=== PATIENT | male | born 1950 | race Caucasian/White ===

== ENCOUNTER 2017-06-24 10:27 | Day surgery (SDC) | payer MEDICARE, BC ==
[2017-06-19 10:07] VITALS: BMI 29.5
[~2017-06-24 10:27] MED LIST: LACTATED RINGERS 1,000 ML IV SCH
[2017-06-24 11:20] VITALS: TEMP 98.3
[2017-06-24] MEDS ORDERED: LIDOCAINE 1% 20 ML VIAL (10MG/ML) FOR IV START INTRADERMA ONE (11:25)
[2017-06-24] MEDS ORDERED: PROPOFOL 10 MG/ML 20 ML VIAL IV ONE (11:45)
[2017-06-24] MEDS ORDERED: KETAMINE 10 MG/ML 20 ML VIAL ONE (11:45)
--- NOTE | 2017-06-24 12:16 | P.PCN ---
Date of Procedure: 06/24/17 Procedure(s) Performed: Procedure: Colonoscopy and polypectomy. Preoperative diagnosis: Screening for neoplasia, patient has history of polyps. Postoperative diagnosis: 1. Two polyps snared but no large polyps or cancer. 2. Sigmoid diverticulosis with no evidence of acute diverticulitis or strictures. Preparation: HalfLytely prep. Sedation: Was provided by anesthesia. Brief clinical history: The patient is a 66-year-old male who is scheduled for this evaluation for screening for neoplasia because of history of polyps. His last exam was in February 2012. He has no abdominal complaints, bleeding or anemia. Procedure: With the patient on his left lateral decubitus position and after informed consent and adequate sedation, the perianal area was inspected and it did not show any fissures or fistulas. There were no masses felt on digital rectal examination. The Olympus CFQ 160L video colonoscope was then inserted in the rectum in the usual fashion and advanced to the cecum. There were a few diverticular orifices noted scattered in the sigmoid with no evidence of acute diverticulitis or strictures. The mucosa appeared healthy. Two polyps were seen, one around the hepatic flexure and one in the proximal sigmoid which were snared and retrieved by suction but there were no large polyps or cancer. I retroflexed the endoscope in the rectum before the endoscope was withdrawn. The patient tolerated the procedure well. Plan: The patient was reassured. Discussed dietary measures. I recommended repeat exam in 3-5 years. He will follow up with you as planned.
[2017-06-24 12:43] VITALS: BP 140/85; PULSE 70; RESP 18
== END 2017-06-24 12:51 | disposition home or self-care (01) ==
LOC: ORWHC2ENDO 10:27
DX: Z12.11 Encounter for screening for malignant neoplasm of colon (principal); D12.3 Benign neoplasm of transverse colon; D12.5 Benign neoplasm of sigmoid colon; K57.30 Diverticulosis of large intestine without perforation or abscess without bleeding; Z86.010 Personal history of colon polyps; I10 Essential (primary) hypertension; Z79.899 Other long term (current) drug therapy
CPT/HCPCS: 88305; 45385; J2704

== ENCOUNTER → 2017-08-22 | Outpatient (CLI) | payer MEDICARE, BC | END | disposition home or self-care (01) | LOC: LABWHC1 10:56 | PROVIDERS: ATTEND Family Medicine | DX: Z12.5 Encounter for screening for malignant neoplasm of prostate (principal) | CPT/HCPCS: 36415; G0103 ==

== ENCOUNTER → 2018-06-05 | Outpatient (CLI) | payer MEDICARE, BC ==
[2018-06-05 17:39] LABS: Albumin 4.6 g/dL (3.80-4.90); Albumin/Globulin Ratio 2.09 (1.60-3.17); Anion Gap 7.3 mmol/L (4.00-12.00); Calcium 9.6 mg/dL (8.7-10.3); Carbon Dioxide 27.7 mmol/L (21.6-31.8); Globulin 2.2 g/dL (1.6-3.3); LDL Cholesterol,Calculated 118.2 mg/dL (0.0-131.0); Potassium 5.1 mmol/L (3.5-5.5); Total Bilirubin 0.5 mg/dL (0.2-1.2); Total Protein 6.8 g/dL (6.2-8.2); VLDL Calculation 13.8 mg/dL (5.00-40.00)
== END | disposition home or self-care (01) ==
LOC: LABWHC1 09:51
PROVIDERS: ATTEND Family Medicine
DX: E78.5 Hyperlipidemia, unspecified (principal); I10 Essential (primary) hypertension; Z11.59 Encounter for screening for other viral diseases
CPT/HCPCS: 36415; 80053; 80061; 86803

== ENCOUNTER → 2018-08-25 | Outpatient (CLI) | payer MEDICARE, BC ==
[2018-08-25 11:08] LABS: Basophils # (A) 0.1 k/uL (0-0.2); Basophils % (A) 1 %; Eosinophils # (A) 0.1 k/uL (0-0.7); Eosinophils % (A) 2 %; HCT 48.2 % (39.0-53.0); HGB 15.9 gm/dL (13.0-17.5); Lymphocytes % (A) 40 %; MCH 31.3 pg (25.0-35.0); MCV 95.1 fL (80.0-100.0); Mean Platelet Volume 7.1; Monocytes # (A) 0.4 k/uL (0-1.0); Monocytes % (A) 9 %; Neutrophils # (A) 2.2 k/uL (1.3-7.7); Neutrophils % (A) 45 %; Platelet Count 253 k/uL (150-450); RBC 5.06 m/uL (4.30-5.90); RDW 14.1 % (11.5-15.5); WBC 4.9 k/uL (3.8-10.6)
[2018-08-25 16:29] LABS: Albumin 4.9 g/dL (3.80-4.90); Albumin/Globulin Ratio 2.23 (1.60-3.17); Anion Gap 9.7 mmol/L (4.00-12.00); Calcium 9.9 mg/dL (8.7-10.3); Carbon Dioxide 26.3 mmol/L (21.6-31.8); Globulin 2.2 g/dL (1.6-3.3); LDL Cholesterol,Calculated 113.2 mg/dL (0.0-131.0); Potassium 5.4 mmol/L (3.5-5.5); Total Bilirubin 0.7 mg/dL (0.3-1.2); Total Protein 7.1 g/dL (6.2-8.2); VLDL Calculation 15.8 mg/dL (5.00-40.00)
[2018-08-25 16:35] LABS: T4, Free (Free Thyroxine) 0.9 ng/dL (0.80-1.80)
== END | disposition home or self-care (01) ==
LOC: LABWHC1 09:25
PROVIDERS: ATTEND Family Medicine
DX: E78.5 Hyperlipidemia, unspecified (principal); Z12.5 Encounter for screening for malignant neoplasm of prostate
CPT/HCPCS: 84439; 80061; 80053; 84443; 85025; 36415; G0103

== ENCOUNTER → 2018-12-01 | Outpatient (CLI) | payer MEDICARE, BC ==
[2018-12-01 10:57] LABS: Basophils # (A) 0.1 k/uL (0-0.2); Basophils % (A) 1 %; Eosinophils # (A) 0.1 k/uL (0-0.7); Eosinophils % (A) 1 %; HCT 50.2 % (39.0-53.0); HGB 16.4 gm/dL (13.0-17.5); Lymphocytes % (A) 33 %; MCH 32.2 pg (25.0-35.0); MCHC 32.6 g/dL (31.0-37.0); MCV 98.7 fL (80.0-100.0); Monocytes # (A) 0.5 k/uL (0-1.0); Monocytes % (A) 8 %; Neutrophils # (A) 3.4 k/uL (1.3-7.7); Neutrophils % (A) 55 %; Platelet Count 228 k/uL (150-450); RBC 5.09 m/uL (4.30-5.90); RDW 14.2 % (11.5-15.5); WBC 6.2 k/uL (3.8-10.6)
[2018-12-01 17:37] LABS: African American GFR (CKD) 72.1 (60.0-200.0); Albumin 4.8 g/dL (3.80-4.90); Albumin/Globulin Ratio 2.18 (1.60-3.17); Anion Gap 9.3 mmol/L (4.00-12.00); BUN/Creat Ratio 17.5 Ratio (12.00-20.00); Calcium 9.8 mg/dL (8.7-10.3); Carbon Dioxide 25.7 mmol/L (21.6-31.8); Chol/HDL Ratio 2.99; Globulin 2.2 g/dL (1.6-3.3); Non-African American GFR(CKD) 62.2 (60.0-200.0); Potassium 5.3 mmol/L (3.5-5.5); Total Bilirubin 0.6 mg/dL (0.2-1.2)
== END | disposition home or self-care (01) ==
LOC: LABWHC1 10:16
PROVIDERS: ATTEND Family Medicine
DX: E78.5 Hyperlipidemia, unspecified (principal)
CPT/HCPCS: 36415; 80053; 80061; 85025

== ENCOUNTER → 2019-06-08 | Outpatient (CLI) | payer MEDICARE, BC ==
[2019-06-08 11:14] LABS: Basophils # (A) 0.1 k/uL (0-0.2); Basophils % (A) 1 %; Eosinophils # (A) 0.1 k/uL (0-0.7); Eosinophils % (A) 2 %; HGB 15.9 gm/dL (13.0-17.5); Lymphocytes # (A) 1.8 k/uL (1.0-4.8); Lymphocytes % (A) 32 %; MCH 31.2 pg (25.0-35.0); MCHC 32.5 g/dL (31.0-37.0); MCV 96.2 fL (80.0-100.0); Mean Platelet Volume 7.5; Monocytes # (A) 0.5 k/uL (0-1.0); Monocytes % (A) 8 %; Neutrophils % (A) 54 %; Platelet Count 255 k/uL (150-450); RBC 5.09 m/uL (4.30-5.90); RDW 12.5 % (11.5-15.5); WBC 5.6 k/uL (3.8-10.6)
[2019-06-08 17:31] LABS: African American GFR (CKD) 89.9 (60.0-200.0); Albumin 4.8 g/dL (3.80-4.90); Albumin/Globulin Ratio 2.18 (1.60-3.17); Anion Gap 9.7 mmol/L (4.00-12.00); Calcium 9.9 mg/dL (8.7-10.3); Carbon Dioxide 26.3 mmol/L (21.6-31.8); Chol/HDL Ratio 2.55; Globulin 2.2 g/dL (1.6-3.3); LDL Cholesterol,Calculated 98.6 mg/dL (0.0-131.0); Non-African American GFR(CKD) 77.5 (60.0-200.0); Potassium 5.2 mmol/L (3.5-5.5); Total Bilirubin 0.7 mg/dL (0.2-1.2); VLDL Calculation 19.4 mg/dL (5.00-40.00)
== END | disposition home or self-care (01) ==
LOC: LABWHC1 09:57
PROVIDERS: ATTEND Family Medicine
DX: Z00.01 Encounter for general adult medical examination with abnormal findings (principal); E55.9 Vitamin D deficiency, unspecified; E78.5 Hyperlipidemia, unspecified
CPT/HCPCS: 36415; 80053; 80061; 82306; 84439; 84443; 84481; 85025

== ENCOUNTER → 2019-12-01 | Outpatient (CLI) | payer MEDICARE, BC ==
--- NOTE | 2019-12-01 17:44 | MR ---
MR thoracic spine without contrast HISTORY: Fracture, back pain No plain film supplied for correlation Multiplanar multisequence imaging through the thoracic spine There is multilevel spondylosis and endplate discogenic marrow signal change, multiple endplate Schmo rl's node formation is present. Probable hemangioma present within the T10 vertebral body, T7 vertebr al body. Thoracic cord signal is normal. There is no evident spinal stenosis. Facet arthropathy oliver es are present at the lower thoracic spine. There is a mild spinal curvature. No significant foramina l encroachment or sizable disc herniation. Minimal posterior left paracentral disc protrusion present at T1 to causing minimal anterolateral mass effect on the thecal sac Proximal descending aorta measures 3.3 cm. Suspect there is a hiatal hernia present. IMPRESSION: Degenerative disc disease. Facet arthropathy. Thoracic aortic aneurysm.
== END | disposition home or self-care (01) ==
LOC: RADMRIMAIN 15:57
PROVIDERS: ATTEND Family Medicine
DX: M51.34 Other intervertebral disc degeneration, thoracic region (principal); M47.814 Spondylosis without myelopathy or radiculopathy, thoracic region; I71.2 Thoracic aortic aneurysm, without rupture
CPT/HCPCS: 72146

== ENCOUNTER → 2019-12-15 | Outpatient (CLI) | payer MEDICARE, BC ==
[2019-12-15 15:01] LABS: African American GFR (CKD) >90 (>60 ml/min/1.73 sqM); Blood Urea Nitrogen 15 mg/dL (9-20); Non-African American GFR(CKD) 84 (>60 ml/min/1.73 sqM)
--- NOTE | 2019-12-15 17:26 | CT ---
EXAMINATION TYPE: CT ChestAbdPelvis w con DATE OF EXAM: 12/15/2019 COMPARISON: Thoracic MRI 12/01/2019 HISTORY: abnormal weight loss CT DLP: 986.8 mGycm Automated exposure control for dose reduction was used. CONTRAST: CT scan of the chest, abdomen and pelvis is performed with Oral Contrast and with IV Contrast, patien t injected with 100 mL of Isovue 300. FINDINGS: LUNGS: The lungs are grossly clear, there is no concerning parenchymal mass or nodule identified. T here is no pleural effusion or pneumothorax seen. The tracheobronchial tree is patent. MEDIASTINUM: There are no greater than 1 cm hilar or mediastinal lymph nodes. No pericardial effusi on is seen. Coronary artery calcifications are present. AORTA: Proximal descending aorta measures 3.3 cm as noted on MRI. OTHER: The distal esophagus shows abnormal thickening. This extends to the level of the stomach. Ther e is some mass effect suspected at the level of the left gastric artery due to abnormal soft tissue i n axial image 60 and 61e, 62 LIVER/GB: No significant abnormality is appreciated. PANCREAS: No significant abnormality is seen. SPLEEN: No significant abnormality is seen. ADRENALS: Left adrenal mass shows low attenuation and measures approximately 2.8 cm, likely adenoma. KIDNEYS: The right kidney shows a large exophytic cyst at the lower pole measuring 7.8 cm x 12 cm in cephalad to caudal dimension, there is mass effect on the proximal ureter and renal pelvis REPRODUCTIVE ORGANS: No gross abnormality seen. BOWEL: No significant abnormality is seen. FREE AIR: No Free Air visible. ASCITES: None seen. RETROPERITONEAL ADENOPATHY: No retroperitoneal adenopathy is seen. LYMPH NODES: There is a node of the lesser curvature of the stomach level that is enlarged, axial willow ge 25 on delayed images, image 63 on arterial phase image. URINARY BLADDER: No significant abnormality is seen. PELVIC ADENOPATHY: None visualized. OSSEOUS STRUCTURES: No significant abnormality is seen. IMPRESSION: Correlate for esophageal carcinoma. Report relayed to the office of Dr. Mayberry at the [facility] of interpretation at exam to Barb. There is ascending aortic ectasia. Low dense left adrenal m ass likely an adenoma.
== END | disposition home or self-care (01) ==
LOC: RADCTMAIN 14:02
PROVIDERS: ATTEND Family Medicine
DX: I77.819 Aortic ectasia, unspecified site (principal); E27.9 Disorder of adrenal gland, unspecified; R63.4 Abnormal weight loss
CPT/HCPCS: 82565; 84520; 71260; 74177; 36415; Q9967

== ENCOUNTER 2019-12-17 11:38 | Day surgery (SDC) | payer MEDICARE, BC ==
[2019-12-16 11:50] VITALS: BMI 27.5
[~2019-12-17 11:38] MED LIST changes: +LIDOCAINE 1% (10MG/ML) FOR IV START INTRADERMA PRN
[2019-12-17 12:08] VITALS: RESP 16; TEMP 98.4
[2019-12-17] MEDS ORDERED: PROPOFOL 10 MG/ML 20 ML VIAL IV ONE (12:38)
[2019-12-17] MEDS ORDERED: LIDOCAINE 1% INJ 10MG/ML (20 ML MDV) ONE (12:38)
--- NOTE | 2019-12-17 12:52 | P.PCN ---
Date of Procedure: 12/17/19 Procedure(s) Performed: BRIEF HISTORY: Patient is a 69-year-old, pleasant, white male scheduled for an upper endoscopy as a part of evaluation of progressive dysphagia to solids for the last 3 months duration. He lost 35 pounds in the last 3 months. He had a computed tomography scan of the abdomen and pelvis done yesterday that showed distal esophageal thickening suspicious for neoplasm.. PROCEDURE PERFORMED: Esophagogastroduodenoscopy with biopsy. PREOPERATIVE DIAGNOSIS: Progressive dysphagia to solids. Weight loss of 3 months duration. IV sedation per anesthesia. PROCEDURE: After informed consent was obtained, the patient was brought into the endoscopy unit. IV sedation was administered by Anesthesia under continuous monitoring. Initially the Olympus GIF-140 video endoscope was inserted into the mouth. Esophagus intubated without any difficulty. It was gradually advanced into the distal esophagus where there was a ulcerated mass identified. The esophagus was severely narrowed. Gently was able to push the scope into the stomach and duodenum and carefully examined. The bulb and the second part of the duodenum appeared normal. The scope at this time was withdrawn to the stomach, adequately insufflated with air, and upon careful examination, mucosa of the antrum, body, cardia and the fundus appeared normal. The scope was then withdrawn into the esophagus. The GE junction was located at 42 cm from the incisors. There was a circumferential esophageal mass located in the distal esophagus extending from 38-42 cm from the incisors with luminal narrowing and multiple biopsies were done from this area. The rest of the esophagus appeared normal and the patient tolerated the procedure well. IMPRESSION: 1. Distal esophageal circumferential ulcerated mass esophageal stricture extending from 38-43 cm from the incisors consistent with neoplasm status post multiple biopsies. RECOMMENDATIONS: The findings of this examination were discussed with the patient as well as his family. At this time will await the biopsy results. He'll be seen in office in a week..
[2019-12-17 13:05] VITALS: BP 132/83; PULSE 57
== END 2019-12-17 13:20 | disposition home or self-care (01) ==
LOC: ORWHC2ENDO 11:38
PROVIDERS: ATTEND Internal Medicine Gastroenterology
DX: C15.5 Malignant neoplasm of lower third of esophagus (principal); K22.10 Ulcer of esophagus without bleeding; K22.2 Esophageal obstruction; R63.4 Abnormal weight loss; I10 Essential (primary) hypertension; F17.210 Nicotine dependence, cigarettes, uncomplicated; Z98.890 Other specified postprocedural states
CPT/HCPCS: 88305; 88342; 43239; J2001; J2704

== ENCOUNTER → 2019-12-18 | Outpatient (CLI) | payer MEDICARE, BC ==
--- NOTE | 2019-12-21 06:48 | PE ---
EXAMINATION TYPE: PET CT fusion skull to thigh DATE OF EXAM: 12/18/2019 COMPARISON: Recent whole body CT 3 days ago. HISTORY: Newly diagnosed esophageal cancer on biopsy December 16. TECHNIQUE: Following the intravenous administration of 11.16 mCi of F-18 FDG, whole body images are performed from the skull base to the midthigh. Images are reviewed on the computer in the coronal, a xial, and sagittal planes. Reconstructed rotating images are created on independent workstation and reviewed on the computer. A noncontrast CT is performed in conjunction with the PET scan. SCAN: Initial Scan FINDINGS: SKULL BASE AND NECK: No areas of suspicious hypermetabolic uptake. CHEST, MEDIASTINUM, AND HILAR REGION: Corresponding to recent CT there is dilatation of the proximal to mid esophagus with air-fluid level with subsequent moderate to severe abnormal concentric thickeni ng that shows hypermetabolic uptake beginning axial image 130 above the diaphragm extending distally to axial image 143 below the diaphragm over a roughly 6 cm segment. Max SUV is 9.1 on axial image 135 right near diaphragmatic hiatus. No additional areas of suspicious hypermetabolic uptake. ABDOMEN AND PELVIS: Just inferior to he distal esophageal neoplasm with proximal gastric extension se en better on recent CT encasing portion of the left gastric artery as it branches from the celiac art myranda there is persistent abnormal enlarged hypermetabolic lymph node axial image measuring 2.9 x 2.0 c m current study image 147 with max SUV of 7.24. Normal excretion is seen. No additional areas of suspicious abnormal hypermetabolic uptake. OSSEOUS STRUCTURES: No areas of suspicious abnormal hypermetabolic uptake. OTHER CT: There is eccentric mucosal thickening or fairly moderate sized mucous retention cyst or pati yp in the posterior inferior left maxillary sinus. Mild underlying emphysematous change. Moderate to severe coronary artery calcification is redemonstra eleazar which is noted marker for underlying coronary artery disease. Heart size upper limits of normal. Some oral contrast from recent CT is seen in the colon. Stable 2.3 cm low dense left adrenal mass mis nt with a benign lipid rich adenoma is ametabolic. There is large exophytic roughly 11 cm thin-walled cyst medially in the right kidney with local mass effect. A few scattered sigmoid colonic diverticul a are redemonstrated. Occasional scattered pelvic phlebolith. Multilevel spurring in the spine is pre sent. IMPRESSION: Long segment neoplasm distal esophagus extends below diaphragm into the proximal stomach. Adjacent abnormal upper abdominal perigastric lymph node. No metastatic disease otherwise identified .
== END | disposition home or self-care (01) ==
LOC: RADPETMAIN 08:45
PROVIDERS: ATTEND Family Medicine
DX: C15.8 Malignant neoplasm of overlapping sites of esophagus (principal)
CPT/HCPCS: 78815; A9552

== ENCOUNTER 2020-02-09 08:55 | Emergency (ER) | payer MEDICARE, BC ==
[2020-02-09 09:01] VITALS: BP 102/67; PULSE 83; RESP 18; TEMP 98
[2020-02-09] MEDS ORDERED: SODIUM CHLORIDE 0.9% 1,000 ML IV STA ×2 (09:07)
--- NOTE | 2020-02-09 09:32 | ED ---
Weakness HPI - General Chief complaint: Weakness Stated complaint: dehydrated Time Seen by Provider: 02/09/20 09:10 Source: patient, family, RN notes reviewed Mode of arrival: wheelchair Limitations: no limitations - History of Present Illness Initial comments: This is a 69-year-old male with a history of esophageal cancer who just had radiation therapy today who was sent over for evaluation for dehydration and weakness. Chemotherapy 2 days ago and had a bad day yesterday with nausea vomiting not able to keep much fluid. Other than feeling somewhat weak he denies any fevers chills sweats or other symptoms at this time he has not had solid food since this past weekend. He does take protein shakes. MD Complaint: generalized weakness - Related Data Home Medications Medication Instructions Recorded Confirmed Cholecalciferol (Vitamin D3) 2,000 unit PO BID 06/19/17 02/09/20 [Vitamin D3] Vitamin B Complex 1 cap PO DAILY 06/19/17 02/09/20 Acetaminophen Tab [Tylenol Tab] 1,000 mg PO Q6H PRN 02/09/20 02/09/20 Ondansetron HCl [Zofran] 4 mg PO Q8H PRN 02/09/20 02/09/20 Allergies Allergy/AdvReac Type Severity Reaction Status Date / Time No Known Allergies Allergy Verified 02/09/20 09:55 Review of Systems ROS Statement: Those systems with pertinent positive or pertinent negative responses have been documented in the HPI. ROS Other: All systems not noted in ROS Statement are negative. Past Medical History Past Medical History: Hypertension Additional Past Medical History / Comment(s): frequent bloating, difficulty swallowing, past hx of HTN, no current medications, esophageal cancer History of Any Multi-Drug Resistant Organisms: None Reported Additional Past Surgical History / Comment(s): JAW RECONSTRUCTION (OVER BITE), colonoscopy Past Anesthesia/Blood Transfusion Reactions: No Reported Reaction Past Psychological History: No Psychological Hx Reported Smoking Status: Current some day smoker Past Alcohol Use History: None Reported Past Drug Use History: None Reported - Past Family History Mother Family Medical History: Cancer Additional Family Medical History / Comment(s): COLON CANCER General Exam - General Exam Comments Initial Comments: This is a well-developed asthenic appearing male who is awake alert oriented 3 Limitations: no limitations General appearance: alert, in no apparent distress Head exam: Present: atraumatic, normocephalic, normal inspection Eye exam: Present: normal appearance, PERRL, EOMI. Absent: scleral icterus, conjunctival injection, periorbital swelling ENT exam: Present: mucous membranes dry Neck exam: Present: normal inspection. Absent: tenderness, meningismus, lymp hadenopathy Respiratory exam: Present: normal lung sounds bilaterally. Absent: respiratory distress, wheezes, rales, rhonchi, stridor Cardiovascular Exam: Present: regular rate, normal rhythm, normal heart sounds. Absent: systolic murmur, diastolic murmur, rubs, gallop, clicks GI/Abdominal exam: Present: soft, normal bowel sounds. Absent: distended, tenderness, guarding, rebound, rigid Extremities exam: Present: normal inspection, full ROM, normal capillary refill. Absent: tenderness, pedal edema, joint swelling, calf tenderness Back exam: Present: normal inspection Neurological exam: Present: alert, oriented X3, CN II-XII intact Psychiatric exam: Present: normal affect, normal mood Skin exam: Present: warm, dry, intact, normal color. Absent: rash Course Vital Signs 02/09/20 08:56 Temperature 98.0 F Pulse Rate 83 Respiratory 18 Rate Blood Pressure 102/67 O2 Sat by Pulse 99 Oximetry EKG Findings - EKG Results: EKG: interpreted by ADEEL, sinus rhythm (Normal sinus rhythm of 71. Interval 150 QRS duration 86 QT since QTC 412/[address]-T wave changes) Medical Decision Making - Medical Decision Making Patient is feeling much improved after IV hydration. I did discuss findings with him and his patient will be discharged with follow-up as planned. - Lab Data Result diagrams: 02/09/20 09:13 02/09/20 09:13 Lab Results 02/09/20 02/09/20 02/09/20 Range/Units 09:13 09:13 09:13 WBC 2.6 L (3.8-10.6) k/uL RBC 4.01 L (4.30-5.90) m/uL Hgb 12.3 L (13.0-17.5) gm/dL Hct 36.0 L (39.0-53.0) % MCV 89.7 (80.0-100.0) fL MCH 30.7 (25.0-35.0) pg MCHC 34.3 (31.0-37.0) g/dL RDW 15.6 H (11.5-15.5) % Plt Count 154 (150-450) k/uL Neutrophils % 78 % Lymphocytes % 8 % Monocytes % 9 % Eosinophils % 1 % Basophils % 1 % Neutrophils # 2.1 (1.3-7.7) k/uL Lymphocytes # 0.2 L (1.0-4.8) k/uL Monocytes # 0.2 (0-1.0) k/uL Eosinophils # 0.0 (0-0.7) k/uL Basophils # 0.0 (0-0.2) k/uL Sodium 133 L (137-145) mmol/L Potassium 5.1 (3.5-5.1) mmol/L Chloride 100 (98-107) mmol/L Carbon Dioxide 25 (22-30) mmol/L Anion Gap 8 mmol/L BUN 16 (9-20) mg/dL Creatinine 0.70 (0.66-1.25) mg/dL Est GFR (CKD-EPI)AfAm >90 (>60 ml/min/1.73 sqM) Est GFR (CKD-EPI)NonAf >90 (>60 ml/min/1.73 sqM) Glucose 106 H (74-99) mg/dL Calcium 9.6 (8.4-10.2) mg/dL Magnesium 2.1 (1.6-2.3) mg/dL Total Bilirubin 0.6 (0.2-1.3) mg/dL AST 23 (17-59) U/L ALT 18 (4-49) U/L Alkaline Phosphatase 51 (38-126) U/L Creatine Kinase 35 L (55-170) U/L Troponin I (0.000-0.034) ng/mL Total Protein 6.8 (6.3-8.2) g/dL Albumin 4.1 (3.5-5.0) g/dL Urine Color Yellow Urine Appearance Clear (Clear) Urine pH 6.0 (5.0-8.0) Ur Specific Ham[place] 1.025 (1.001-1.035) Urine Protein Trace H (Negative) Urine Glucose (UA) Negative (Negative) Urine Ketones 2+ H (Negative) Urine Blood Trace H (Negative) Urine Nitrite Negative (Negative) Urine Bilirubin Negative (Negative) Urine Urobilinogen <2.0 (<2.0) mg/dL Ur Leukocyte Esterase Negative (Negative) Urine RBC 5 (0-5) /hpf Urine WBC 1 (0-5) /hpf Hyaline Casts 1 (0-2) /lpf Urine Mucus Few H (None) /hpf 02/09/20 Range/Units 09:13 WBC (3.8-10.6) k/uL RBC (4.30-5.90) m/uL Hgb (13.0-17.5) gm/dL Hct (39.0-53.0) % MCV (80.0-100.0) fL MCH (25.0-35.0) pg MCHC (31.0-37.0) g/dL RDW (11.5-15.5) % Plt Count (150-450) k/uL Neutrophils % % Lymphocytes % % Monocytes % % Eosinophils % % Basophils % % Neutrophils # (1.3-7.7) k/uL Lymphocytes # (1.0-4.8) k/uL Monocytes # (0-1.0) k/uL Eosinophils # (0-0.7) k/uL Basophils # (0-0.2) k/uL Sodium (137-145) mmol/L Potassium (3.5-5.1) mmol/L Chloride (98-107) mmol/L Carbon Dioxide (22-30) mmol/L Anion Gap mmol/L BUN (9-20) mg/dL Creatinine (0.66-1.25) mg/dL Est GFR (CKD-EPI)AfAm (>60 ml/min/1.73 sqM) Est GFR (CKD-EPI)NonAf (>60 ml/min/1.73 sqM) Glucose (74-99) mg/dL Calcium (8.4-10.2) mg/dL Magnesium (1.6-2.3) mg/dL Total Bilirubin (0.2-1.3) mg/dL AST (17-59) U/L ALT (4-49) U/L Alkaline Phosphatase (38-126) U/L Creatine Kinase (55-170) U/L Troponin I <0.012 (0.000-0.034) ng/mL Total Protein (6.3-8.2) g/dL Albumin (3.5-5.0) g/dL Urine Color Urine Appearance (Clear) Urine pH (5.0-8.0) Ur Specific Hamler (1.001-1.035) Urine Protein (Negative) Urine Glucose (UA) (Negative) Urine Ketones (Negative) Urine Blood (Negative) Urine Nitrite (Negative) Urine Bilirubin (Negative) Urine Urobilinogen (<2.0) mg/dL Ur Leukocyte Esterase (Negative) Urine RBC (0-5) /hpf Urine WBC (0-5) /hpf Hyaline Casts (0-2) /lpf Urine Mucus (None) /hpf Disposition Clinical Impression: Dehydration, History of esophageal cancer Disposition: HOME SELF-CARE Condition: Good Instructions (If sedation given, give patient instructions): Dehydration (ED) Additional Instructions: Keep her follow-up appointments as planned Is patient prescribed a controlled substance at d/c from ED?: No Referrals: Juan M Mayberry MD [Primary Care Provider] - 1-2 days
[2020-02-09 09:40] LABS: Basophils % (A) 1 %; Eosinophils % (A) 1 %; HGB 12.3 gm/dL (13.0-17.5); Lymphocytes # (A) 0.2 k/uL (1.0-4.8); Lymphocytes % (A) 8 %; MCH 30.7 pg (25.0-35.0); MCHC 34.3 g/dL (31.0-37.0); MCV 89.7 fL (80.0-100.0); Mean Platelet Volume 7.4; Monocytes # (A) 0.2 k/uL (0-1.0); Monocytes % (A) 9 %; Neutrophils # (A) 2.1 k/uL (1.3-7.7); Neutrophils % (A) 78 %; Platelet Count 154 k/uL (150-450); RBC 4.01 m/uL (4.30-5.90); RDW 15.6 % (11.5-15.5); WBC 2.6 k/uL (3.8-10.6)
[2020-02-09 09:52] LABS: ALT 18 U/L (4-49); AST 23 U/L (17-59); African American GFR (CKD) >90 (>60 ml/min/1.73 sqM); Albumin 4.1 g/dL (3.5-5.0); Alkaline Phosphatase 51 U/L (38-126); Anion Gap 8 mmol/L; Blood Urea Nitrogen 16 mg/dL (9-20); Calcium 9.6 mg/dL (8.4-10.2); Carbon Dioxide 25 mmol/L (22-30); Chloride 100 mmol/L (98-107); Creatine Kinase 35 U/L (55-170); Glucose 106 mg/dL (74-99); Magnesium 2.1 mg/dL (1.6-2.3); Non-African American GFR(CKD) >90 (>60 ml/min/1.73 sqM); Potassium 5.1 mmol/L (3.5-5.1); Sodium 133 mmol/L (137-145); Total Bilirubin 0.6 mg/dL (0.2-1.3); Total Protein 6.8 g/dL (6.3-8.2)
[2020-02-09 10:00] LABS: Appearance,Urine Clear (Clear); Bilirubin,Urine Negative (Negative); Blood,Urine Trace (Negative); Color,Urine Yellow; Glucose,Urine (UA) Negative (Negative); Hyaline Casts,Urine 1 /lpf (0-2); Ketones,Urine 2+ (Negative); Leukocyte Esterase,Urine Negative (Negative); Mucus,Urine Few /hpf; Nitrite,Urine Negative (Negative); Protein,Urine Trace (Negative); RBC,Urine 5 /hpf (0-5); Specific Gravity,Urine 1.025 (1.001-1.035); Urobilinogen,Urine <2.0 mg/dL (<2.0); WBC,Urine 1 /hpf (0-5)
== END 2020-02-09 11:24 | disposition home or self-care (01) ==
LOC: EC 08:55
DX: E86.0 Dehydration (principal); Z85.01 Personal history of malignant neoplasm of esophagus; I10 Essential (primary) hypertension; F17.200 Nicotine dependence, unspecified, uncomplicated
CPT/HCPCS: 36415; 80053; 81001; 82550; 83735; 84484; 85025; 93005; 96360; 99285

== ENCOUNTER → 2020-03-10 | Outpatient (CLI) | payer MEDICARE, BC ==
--- NOTE | 2020-03-13 07:09 | PE ---
EXAMINATION TYPE: PET CT fusion skull to thigh DATE OF EXAM: 03/10/2020 COMPARISON: Prior PET/CT December 18, 2019. Prior whole-body CT December 15, 2019. HISTORY: Esophageal cancer progress study. Diagnosed on biopsy December 13 2019. Recently completed c hemotherapy and radiation treatment. TECHNIQUE: Following the intravenous administration of 12.32 mCi of F-18 FDG, whole body images are performed from the skull base to the midthigh. Images are reviewed on the computer in the coronal, a xial, and sagittal planes. Reconstructed rotating images are created on independent workstation and reviewed on the computer. A localization and attenuation correction CT is performed in conjunction with the PET scan. SCAN: Subsequent Scan FINDINGS: SKULL BASE AND NECK: No new areas of abnormal hypermetabolic uptake. CHEST, MEDIASTINUM, AND HILAR REGION: Persistent moderate concentric wall thickening with hypermetabo lic uptake in the distal esophagus, findings show interval improvement in degree of abnormal wall thi ckening along with the max SUV, current study max SUV is 4.44. Extension to level of diaphragmatic hi atus is present, extension just below the diaphragmatic hiatus is present on current study less promi nent than prior. ABDOMEN AND PELVIS: Normal excretion is seen. Nonspecific bowel uptake particularly in the left colon on current study. No new areas of suspicious hypermetabolic uptake. OSSEOUS STRUCTURES: No new areas of suspicious hypermetabolic uptake. OTHER CT: There is eccentric mucosal thickening or fairly moderate sized mucous retention cyst or pati yp in the posterior inferior lateral aspect left maxillary sinus redemonstrated. Mild underlying emphysematous change redemonstrated. Moderate to severe coronary artery calcification is redemonstrated which is noted marker for underlying coronary artery disease. Heart size stable an d upper limits of normal. Stable 2.3 cm low dense left adrenal mass consistent with a benign lipid rich adenoma is ametabolic. There is large exophytic roughly 11 cm thin-walled cyst medially in the right kidney with local mass effect. This has some curvilinear wall calcification. Bosniak F lesion. Small amount of free fluid in the pelvis on current study. A few scattered sigmoid colonic diverticul a are redemonstrated. Occasional scattered pelvic phleboliths. Multilevel spurring in the spine is pr esent. IMPRESSION: Partial positive treatment response as detailed above.
== END | disposition home or self-care (01) ==
LOC: RADPETMAIN 08:00
PROVIDERS: ATTEND Radiology Radiation Oncology
DX: C15.5 Malignant neoplasm of lower third of esophagus (principal); C77.2 Secondary and unspecified malignant neoplasm of intra-abdominal lymph nodes
CPT/HCPCS: 78815; A9552

== ENCOUNTER → 2020-06-30 | Outpatient (CLI) | payer MEDICARE, BC ==
--- NOTE | 2020-06-30 11:03 | CT ---
EXAMINATION TYPE: CT heart w calcium score DATE OF EXAM: 06/30/2020 COMPARISON: None HISTORY: Screening for cardiovascular disorder. 213.9 CT DLP: 74 mGycm Automated exposure control for dose reduction was used. CT CALCIUM SCORING Coronary calcium is a marker for plaque (fatty deposits) in a blood vessel or atherosclerosis (harden ing of the arteries). The presence and amount of calcium detected in a coronary artery by the CT sca n, indicates the presence and amount of atherosclerotic plaque. These calcium deposits appear years before the development of heart disease symptoms such as chest pain and shortness of breath. A calcium score is computed for each of the coronary arteries based upon the volume and density of th e calcium deposits. This can be referred to as your calcified plaque burden. It does not correspond directly to the percentage of narrowing in the artery but does correlate with the severity of the un derlying coronary atherosclerosis. PROCEDURE TECHNIQUE - Prospective Gating was used. Slice thickness: 3mm. Density threshold (HU): 130, Pixel threshold: 3, Algorithm: discrete. RESULTS Region: LM Calcium Score ([place]): 12.88 Volume (mm3): 15.46 Mass (g): Region: RCA Calcium Score ([place]): 289.86 Volume (mm3): 245.14 Mass (g): Region: LAD Calcium Score ([place]): 407.28 Volume (mm3): 305.88 Mass (g): Region: CX Calcium Score ([place]): Volume (mm3): Mass (g): Region: PDA Calcium Score ([place]): Volume (mm3): Mass (g): Total: Calcium Score (Agatston): 710.02 Volume (mm3): 566.48 Mass (g): TOTAL CALCIUM SCORE: 710.02 IMPRESSION: Calcium Score: 710.02 Implication: Extensive atherosclerotic plaque Risk of Coronary Artery Disease: High likelihood of at least one significant coronary narrowing There is thickening of the esophagus compatible with patient's known history of esophageal carcinoma . CALCIUM SCORE IMPLICATION RISK OF C ORONARY ARTERY DISEASE 0 No identifiable plaque Very low, generally less than 5% 1-10 Minimal identifiable plaque Very unlikely, less than 10% 11-100 Definite, at least mild atherosclerotic plaque Mild or m inimal coronary narrowings likely 101-400 Definite, at least moderate atherosclerotic plaque Mild coronary ar amie disease highly likely, significant narrowing possible 401 or Higher Extensive atherosclerotic plaque High lik elihood of at least one significant coronary narrowing
== END | disposition home or self-care (01) ==
LOC: RADCTMAIN 08:49
PROVIDERS: ATTEND Family Medicine
DX: I25.10 Atherosclerotic heart disease of native coronary artery without angina pectoris (principal)
CPT/HCPCS: 75571

== ENCOUNTER → 2020-08-22 | Outpatient (CLI) | payer MEDICARE, BC ==
[2020-08-22 10:02] LABS: African American GFR (CKD) >90 (>60 ml/min/1.73 sqM); Blood Urea Nitrogen 13 mg/dL (9-20); Non-African American GFR(CKD) >90 (>60 ml/min/1.73 sqM)
--- NOTE | 2020-08-22 11:17 | CT ---
EXAMINATION TYPE: CT ChestAbdPelvis w con DATE OF EXAM: 08/22/2020 COMPARISON: Most recent PET CT March 10, 2020 and older studies HISTORY: Esophageal cancer, observing for METS CT DLP: 662.6 mGycm. Automated Exposure Control for Dose Reduction was Utilized. CONTRAST: CT scan of the thorax, abdomen and pelvis is performed with oral and with IV Contrast, patient inject ed with 100 mL of Isovue 300. FINDINGS: LUNGS: The lungs remain grossly clear, there is no concerning new parenchymal mass or nodule identifi ed. There is no pleural effusion or pneumothorax seen. The tracheobronchial tree is patent. MEDIASTINUM: There are no new greater than 1 cm hilar or mediastinal lymph nodes. New tiny pericardia l effusion is seen. No cardiomegaly. At least moderate coronary artery calcification is redemonstrat ed. OTHER: Interval total esophagectomy with gastric pull-up procedure. Contrast and debris filled gastri c pull-up into the thorax is noted. LIVER/GB: No significant abnormality is appreciated. PANCREAS: No significant abnormality is seen. SPLEEN: No significant abnormality is seen. ADRENALS: Stable low dense 2.4 cm left adrenal mass noted ametabolic presumed benign. KIDNEYS: Roughly 11.5 cm cm thin-walled cyst long axis coronal image 45 with local mass effect anteri damon right mid to lower pole with exophytic lower pole extension is redemonstrated. BOWEL: Oral contrast reaches level of distal ileum current study. No suspicious small or large bowel dilatation. Fecal prominence in the right and transverse colon is noted GENITAL ORGANS: Prostate gland upper limits of normal in size with adjacent scattered pelvic phleboli ths. LYMPH NODES: No greater than 1cm abdominal or pelvic lymph nodes are appreciated. OSSEOUS STRUCTURES: No significant abnormality is seen. OTHER: Goui-su-olkbhiry calcified plaque of the aorta extends into branch vessels. IMPRESSION: Interval surgical change. No suspicious new mass or adenopathy identified to suggest new or residual neoplasm.
== END | disposition home or self-care (01) ==
LOC: RADCTMAIN 09:01
PROVIDERS: ATTEND Internal Medicine Hematology & Oncology
DX: C15.5 Malignant neoplasm of lower third of esophagus (principal)
CPT/HCPCS: 82565; 84520; 71260; 74177; 36415; Q9967

== ENCOUNTER → 2021-02-02 | Outpatient (CLI) | payer MEDICARE, BC ==
--- NOTE | 2021-02-02 15:02 | PE ---
EXAMINATION TYPE: PET CT fusion skull to thigh DATE OF EXAM: 02/02/2021 COMPARISON: Most recent CT August 22, 2020. Most recent PET CT March 10, 2020. HISTORY: Esophageal cancer diagnosed December 2019 with surgery May 02, 2020. Completed chemothera py January 2020. TECHNIQUE: Following the intravenous administration of 12.41 mCi of F-18 FDG, whole body images are performed from the skull base to the midthigh. Images are reviewed on the computer in the coronal, a xial, and sagittal planes. Reconstructed rotating images are created on independent workstation and reviewed on the computer. A localization and attenuation correction CT is performed in conjunction with the PET scan. Blood glucose level equals 89. SCAN: Subsequent Scan FINDINGS: SKULL BASE AND NECK: No new areas of abnormal hypermetabolic uptake. CHEST, MEDIASTINUM, AND HILAR REGION: Interval total esophagectomy with gastric pull-up from most rec ent prior PET/CT. No new areas of abnormal hypermetabolic uptake. ABDOMEN AND PELVIS: Normal excretion is seen. Stable roughly 2.5 cm low dense left adrenal mass axia l image 154, just anterior to this there is new suspicious hypermetabolic subcentimeter focus axial i mage 155, just inferior medial to this there is new hypermetabolic on August 22 9 cm soft tissue focus reflect recurrent adenopathy axial image 160, max SUV is 5.15. No additional areas of abnormal hypermetabolic uptake. OSSEOUS STRUCTURES: No new areas of suspicious hypermetabolic uptake. OTHER CT: There is eccentric mucosal thickening or fairly moderate sized mucous retention cyst or pati yp in the posterior inferior lateral aspect left maxillary sinus redemonstrated. Mild underlying emphysematous change redemonstrated. Moderate to severe coronary artery calcification is redemonstrated . Stable 2.3 cm low dense left adrenal mass consistent with a benign lipid rich adenoma is ametabolic. There is large exophytic roughly 11 cm thin-walled cyst medially in the right kidney with local mass effect. This has some curvilinear wall calcification. Bosniak IIF lesion. Enlarged prostate consistent with BPH. Mild wall thickening and bladder presumed related to outlet ob struction. Few sigmoid colonic diverticula. Mild/moderate L5 plaque of the infrarenal abdominal aorta . IMPRESSION: Recurrent neoplasm or adenopathy in the posterior upper abdomen just below the diaphragm.
== END | disposition home or self-care (01) ==
LOC: RADPETMAIN 12:48
PROVIDERS: ATTEND Internal Medicine Hematology & Oncology
DX: C15.5 Malignant neoplasm of lower third of esophagus (principal); N40.0 Benign prostatic hyperplasia without lower urinary tract symptoms
CPT/HCPCS: 78815; A9552

== ENCOUNTER → 2021-05-18 | Outpatient (CLI) | payer MEDICARE, BC ==
--- NOTE | 2021-05-21 08:20 | PE ---
EXAMINATION TYPE: PET CT fusion skull to thigh DATE OF EXAM: 05/18/2021 COMPARISON: Prior PET/CT February 02, 2021 and older studies HISTORY: Esophageal cancer diagnosed December 2019 with surgery May 02, 2020. Completed chemothera py and radiation treatment February 05, 2021 TECHNIQUE: Following the intravenous administration of 11.14 mCi of F-18 FDG, whole body images are performed from the skull base to the midthigh. Images are reviewed on the computer in the coronal, a xial, and sagittal planes. Reconstructed rotating images are created on independent workstation and reviewed on the computer. A localization and attenuation correction CT is performed in conjunction with the PET scan. Blood glucose level equals 86. SCAN: Subsequent Scan FINDINGS: SKULL BASE AND NECK: No new areas of abnormal hypermetabolic uptake. CHEST, MEDIASTINUM, AND HILAR REGION: Redemonstration of total esophagectomy with gastric pull-up . N o new areas of abnormal hypermetabolic uptake. ABDOMEN AND PELVIS: Normal excretion is redemonstrated. Stable roughly 2.6 by 2.1 cm low dense left adrenal mass axial image 154. Just inferior and central to this there is persistent abnormal enlarged retrocrural lymph node measuring approximately 4.0 x 2.2 cm with mild hypermetabolic uptake current study is improved from 3.36 on axial image 152 from 5.15 prior study. New mild nonspecific bowel upta ke in the lower abdomen and pelvis. No additional areas of abnormal hypermetabolic uptake. OSSEOUS STRUCTURES: No new areas of suspicious hypermetabolic uptake. OTHER CT: There is eccentric mucosal thickening or fairly moderate size mucous retention cyst or poly p in the posterior inferior lateral aspect left maxillary sinus redemonstrated. Mild underlying emphysematous change is redemonstrated. Moderate to severe coronary artery calcificat ion is redemonstrated . Stable 2.3 cm low dense left adrenal mass consistent with a benign lipid rich adenoma is ametabolic. There is large exophytic roughly 11 cm rim calcified thin-walled cyst medially in the right kidney wi th local mass effect, Bosniak IIF lesion redemonstrated. Enlarged prostate consistent with BPH. Adjacent scattered pelvic phleboliths. Patient has little intr a-abdominal fat. Mild/moderate atherosclerotic plaque of the infrarenal abdominal aorta. IMPRESSION: Improved retrocrural adenopathy in the posterior upper abdomen just below the diaphragm. No new metastatic disease is evident.
== END | disposition home or self-care (01) ==
LOC: RADPETMAIN 10:29
PROVIDERS: ATTEND Thoracic Surgery (Cardiothoracic Vascular Surgery)
DX: R59.0 Localized enlarged lymph nodes (principal); Z85.01 Personal history of malignant neoplasm of esophagus
CPT/HCPCS: 78815; A9552

== ENCOUNTER → 2021-09-07 | Outpatient (CLI) | payer MEDICARE, BC ==
--- NOTE | 2021-09-10 06:45 | PE ---
EXAMINATION TYPE: PET CT fusion skull to thigh DATE OF EXAM: 09/07/2021 COMPARISON: Most recent PET CT May 18, 2021 and older studies HISTORY: Esophageal cancer diagnosed December 2019 with surgery May 02, 2021. Completed chemothera py and radiation treatment February 05, 2021 TECHNIQUE: Following the intravenous administration of 10.23 mCi of F-18 FDG, whole body images are performed from the skull base to the midthigh. Images are reviewed on the computer in the coronal, a xial, and sagittal planes. Reconstructed rotating images are created on independent workstation and reviewed on the computer. A localization and attenuation correction CT is performed in conjunction with the PET scan. Blood glucose level equals 94 SCAN: Subsequent Scan FINDINGS: SKULL BASE AND NECK: No new areas of abnormal hypermetabolic uptake. CHEST, MEDIASTINUM, AND HILAR REGION: Redemonstration of total esophagectomy with gastric pull-up . N o new areas of abnormal hypermetabolic uptake. ABDOMEN AND PELVIS: Stable roughly 2.6 by 2.1 cm low dense left adrenal mass axial image 143 on curr ent study. Just anterior and central to this extending inferiorly there is persistent abnormal conflu ent enlarged adenopathy with increasing max SUV difficult to accurately measure, max SUV just anterio r to the left adrenal gland is 4.86 on current study increased from prior. More central inferior larg er confluent lesion has increased in size and has increased hypermetabolic uptake. New subtle hypermetabolic posterior right hepatic dome metastatic lesion axial image 134 measures 1.4 cm on long axis, max SUV is 4.01. Second metastatic focus peripheral right hepatic lobe axial image 147 is suspected with Max SUV 3.09. Mild nonspecific bowel uptake in the lower abdomen and pelvis is redemonstrated. Normal excretion is redemonstrated No additional new areas of abnormal hypermetabolic uptake. OSSEOUS STRUCTURES: No new areas of suspicious hypermetabolic uptake. OTHER CT: There is moderate to severe eccentric mucosal thickening or fairly moderate size mucous ret ention cyst or polyp in the left maxillary sinus redemonstrated. Mild underlying emphysematous change is redemonstrated. Moderate to severe coronary artery calcificat ion is redemonstrated . Stable 2.3 cm low dense left adrenal mass consistent with a benign lipid rich adenoma remains ametabo lic. There is large exophytic roughly 11 cm rim calcified thin-walled cyst anteriorly in the right ki dney with local mass effect, Bosniak IIF lesion redemonstrated. Enlarged prostate consistent with BPH. Adjacent scattered pelvic phleboliths. Patient has little intr a-abdominal fat. Mild/moderate atherosclerotic plaque of the infrarenal abdominal aorta. IMPRESSION: Metastatic neoplastic progression as detailed above. Worsening adenopathy with developing hepatic metastatic disease noted.
== END | disposition home or self-care (01) ==
LOC: RADPETMAIN 09:24
PROVIDERS: ATTEND Internal Medicine Hematology & Oncology
DX: C78.7 Secondary malignant neoplasm of liver and intrahepatic bile duct (principal); C15.5 Malignant neoplasm of lower third of esophagus; R59.9 Enlarged lymph nodes, unspecified; Z92.21 Personal history of antineoplastic chemotherapy; Z92.3 Personal history of irradiation
CPT/HCPCS: 78815; A9552

== ENCOUNTER → 2021-12-07 | Outpatient (CLI) | payer MEDICARE, BC ==
--- NOTE | 2021-12-07 17:07 | PE ---
Nuclear medicine PET/CT HISTORY: C 15.5, esophageal carcinoma, subsequent Patient received 11 mCi F-18 FDG intravenously and delayed scanning was performed from the skull base to the mid thighs. A localization and attenuation correction CT scan was performed. Correlation to prior nuclear medicine PET/CT 09/07/2021 Average mediastinal uptake is SUV 1.5, and average liver uptake SUV 2.1 Chest and neck: There is no suspicious cervical or supraclavicular adenopathy. No mediastinal, axilla ry, or hilar adenopathy. Patient shows esophagectomy change with gastric pull-through. No suspicious uptake. No evident lung mass. No pleural or pericardial effusion. There are coronary artery calcifica tions. ABDOMEN: There is some uptake to the left of midline, postop changes are present at this level. Previ ous identified hypermetabolic uptake at this level has decreased, SUV is 2.2, 2.3. Large cyst is pres ent inferior aspect of the right kidney in exophytic location. No pelvic adenopathy or free fluid. Up take within the liver has resolved. Osseous structures show no suspicious uptake. IMPRESSION: Improvement in the uptake seen in the upper abdomen
== END | disposition home or self-care (01) ==
LOC: RADXRMAIN 10:26
PROVIDERS: ATTEND Internal Medicine Hematology & Oncology
DX: C15.5 Malignant neoplasm of lower third of esophagus (principal)
CPT/HCPCS: 78815; A9552

== ENCOUNTER → 2021-12-20 | Outpatient (CLI) | payer MEDICARE, BC ==
[2021-12-20 14:25] LABS: HCT 25.8 % (39.6-50.0); HGB 8.9 g/dL (13.0-17.0); MCH 37.2 pg (27.0-32.0); MCHC 34.5 g/dL (32.0-37.0); MCV 107.9 fL (80.0-97.0); NRBC Per 100 WBC 0 /100 WBCS (0.0-0.0); Platelet Count 132 X 10*3/uL (140-440); RBC 2.39 X 10*6/uL (4.40-5.60); RDW 19.5 % (11.5-14.5); WBC 3.42 X 10*3/uL (4.50-10.00)
[2021-12-20 15:49] LABS: ALT 23 U/L (10-49); AST 24 U/L (14-35); Albumin 4.5 g/dL (3.8-4.9); Albumin/Globulin Ratio 1.95 (1.60-3.17); Alkaline Phosphatase 41 U/L (41-126); BUN/Creat Ratio 15.97 Ratio (12.00-20.00); Blood Urea Nitrogen 11.9 mg/dL (9.0-27.0); Calcium 9.6 mg/dL (8.7-10.3); Carbon Dioxide 25.2 mmol/L (20.0-27.5); Chloride 102 mmol/L (96-109); Chol/HDL Ratio 2.12 Ratio; Globulin 2.3 g/dL (1.6-3.3); Glucose 97 mg/dL (70-110); LDL Cholesterol,Calculated 69.1 mg/dL (0.0-131.0); Non-African American GFR(CKD) 93.2 (60.0-200.0); Potassium 5.3 mmol/L (3.5-5.5); Sodium 137 mmol/L (135-145); Total Protein 6.8 g/dL (6.2-8.2)
[2021-12-20 16:53] LABS: Basophils # (A) 0.01 X 10*3/uL (0.00-0.10); Basophils % (A) 0.3 %; Eosinophils # (A) 0.01 X 10*3/uL (0.04-0.35); Eosinophils % (A) 0.3 %; Immature Grans, Automated 0.6 %; Lymphocytes % (A) 14.6 %; Macrocytosis (M) 2+; Monocytes # (A) 0.57 X 10*3/uL (0.20-1.00); Monocytes % (A) 16.7 %; Neutrophils # (A) 2.31 X 10*3/uL (1.80-7.70); Neutrophils % (A) 67.5 %
== END | disposition home or self-care (01) ==
LOC: LABWHC1 09:12
PROVIDERS: ATTEND Family Medicine
DX: Z00.01 Encounter for general adult medical examination with abnormal findings (principal); Z13.1 Encounter for screening for diabetes mellitus; Z12.5 Encounter for screening for malignant neoplasm of prostate; E55.9 Vitamin D deficiency, unspecified; E78.5 Hyperlipidemia, unspecified
CPT/HCPCS: 36415; 80053; 80061; 82306; 83036; 84153; 84439; 84443; 85025

== ENCOUNTER → 2022-01-03 | Outpatient (CLI) | payer MEDICARE, BC ==
--- NOTE | 2022-01-04 11:50 | MR ---
EXAMINATION TYPE: MR tspine/lspine wo con DATE OF EXAM: 01/03/2022 COMPARISON: 12/01/2019 12/07/2021 PET/CT HISTORY: Low back and mid back pain. TECHNIQUE: Multiplanar, multisequence imaging of the thoracic and lumbar spine is performed without I V contrast. FINDINGS: Multilevel disc degeneration changes throughout the spine most pronounced in the upper thoracic spine T1-T7 which may be secondary to post treatment changes with diffuse high T1/T2 signal in the bone ma rrow. There is fatty bone marrow extending through the mid spine to visualize upper lumbar spine (L1) . The remainder of the upper thoracic spine demonstrates red marrow reconversion. No evidence of significant spinal canal stenosis within the visualized thoracic. Spinal cord signal i s maintained. Alignment: The lumbar vertebral bodies have preserved heights and alignment. Cord: The conus medullaris and the distal spinal cord appear unremarkable with regards to their signa l intensity and morphology. Bones/Discs: Bone marrow signal is described above with presumably postradiation therapy changes to T 7-L1 with height T1/T2 signal bone marrow and suspected red marrow reconversion changes to the more i nferior lumbar spine.. Multilevel degenerative disc disease is noted and most pronounced at the L5-S1 . Multilevel disc desiccation is present. L1-L2: Disc bulge with facet joint arthropathy result in mild to moderate bilateral neural foraminal stenosis. Mild narrowing of the spinal canal. L2-L3: Disc bulge with facet joint arthropathy result in mild to moderate bilateral neural foraminal stenosis. Mild to moderate narrowing of the spinal canal. L3-L4: Disc bulge with facet joint arthropathy result in moderate to severe bilateral neural foramina l stenosis. Mild to moderate narrowing of the spinal canal. L4-L5: Disc bulge with facet joint arthropathy result in moderate bilateral neural foraminal stenosis . Mild narrowing of the spinal canal. L5-S1: Disc bulge with facet joint arthropathy result in moderate right and severe left neural forami nal stenosis. No significant spinal canal stenosis. Other: Postsurgical changes to the esophagus with gastric pull-through. Right renal cysts noted. High T2 low T1 signal cysts within the right psoas muscle. IMPRESSION: 1. No evidence of significant spinal canal stenosis. 2. Multilevel disc degeneration changes with varying degrees of neural foraminal stenosis as describe d above. Foraminal stenosis worse at L5-S1 with severe left stenosis. 3. Posttreatment changes to the bone marrow with suspected radiation changes to T7-L1 and red marrow conversion changes of the remainder of the vertebral bodies.
== END | disposition home or self-care (01) ==
LOC: RADMRIMAIN 12:27
PROVIDERS: ATTEND Family Medicine
DX: M47.27 Other spondylosis with radiculopathy, lumbosacral region (principal); M51.17 Intervertebral disc disorders with radiculopathy, lumbosacral region; M48.061 Spinal stenosis, lumbar region without neurogenic claudication; M99.74 Connective tissue and disc stenosis of intervertebral foramina of sacral region
CPT/HCPCS: 72146; 72148

== ENCOUNTER → 2022-04-06 | Outpatient (CLI) | payer MEDICARE, BC ==
--- NOTE | 2022-04-08 21:22 | PE ---
EXAMINATION TYPE: PET CT fusion skull to thigh DATE OF EXAM: 04/06/2022 CLINICAL INDICATION:Male, 71 years old with history of C15.5. TECHNIQUE: Following the intravenous administration of 13.3 mCi of F-18 FDG, whole body images are performed from the skull base to the midthigh. Images are reviewed on the computer in the coronal, a xial, and sagittal planes. Reconstructed rotating images are created on independent workstation and reviewed on the computer. A non-contrast CT is performed in conjunction with the PET scan. Glucose level 90 mg/dL COMPARISON: CT 08/22/2020, PET/CT 12/07/2021, FINDINGS: Mediastinal SUV mean is 1.3. Hepatic parenchyma SUV mean is 1.5. SKULL BASE AND NECK: No suspicious radiotracer activity. CHEST, MEDIASTINUM, AND HILAR REGION: No suspicious radiotracer activity. ABDOMEN AND PELVIS: In the upper abdomen is somewhat ill-defined soft tissue posterior to the pancrea s and further left just above the left adrenal gland max SUV 6.1, previously 2.3 and 2.2 respectively . Additional additional new abnormal radiotracer uptake within the dome of the liver posteriorly right hepatic lobe max SUV 3.9 previously 1.5. OSSEOUS STRUCTURES: No suspicious radiotracer activity. OTHER CT: Atherosclerosis of the arterial vasculature including the carotid bifurcations and coronary arteries. Mucosal thickening of the maxillary sinus on the left. Intracranial atherosclerosis noted. Surgical clips around the gastroesophageal junction with postsurgical change the esophagus and stom ach. There is small amount of fluid in the abdominal cavity. Right renal cyst measuring up to 6.7 cm with peripheral wall calcifications. Surgical clips are seen in the left abdomen. There is anasarca o f the soft tissues. IMPRESSION: Findings suspicious for progressive disease with interval increase in retrocrural upper abdomen lymph adenopathy along with ill-defined increased FDG activity within the right hepatic lobe.
== END | disposition home or self-care (01) ==
LOC: RADPETMAIN 09:50
PROVIDERS: ATTEND Internal Medicine Hematology & Oncology
DX: C15.5 Malignant neoplasm of lower third of esophagus (principal)
CPT/HCPCS: 78815; A9552

== ENCOUNTER → 2022-04-29 | Outpatient (CLI) | payer MEDICARE, BC ==
[2022-04-29 12:18] LABS: African American GFR (CKD) >90 (>60 ml/min/1.73 sqM); Blood Urea Nitrogen 34 mg/dL (9-20); Non-African American GFR(CKD) 90 (>60 ml/min/1.73 sqM)
--- NOTE | 2022-04-29 15:00 | CT ---
EXAMINATION TYPE: CT abdomen pelvis w con DATE OF EXAM: 04/29/2022 COMPARISON: PET CT 04/06/2022 HISTORY: 71-year-old male lower esophageal CA TECHNIQUE: Contiguous axial scanning of the abdomen and pelvis following administration of 70 ml Isov ue 300 IV contrast. Delayed images through the kidneys and coronal/sagittal reconstructions performe d. CT DLP: 1029 mGycm Automated exposure control for dose reduction was used. FINDINGS: Heart normal size. LAD and RCA coronary artery calcifications are present. Ongoing moderate to large bilateral pleural effusions. Adjacent atelectasis basilar left lower lobe. Worsening atelectasis/collapse right middle lobe. Surgically with gastric pull-through. Linear densities in the paraesophageal lower chest likely vascu larity. Ongoing severe anasarca. Moderate abdominal pelvic ascites redemonstrated. 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 S plenic vein not clearly seen. Abnormal hypodense lesion posterior right hepatic dome measuring 2.8 cm versus 2.5 cm, previously. No abnormal gallbladder distention. Redemonstrated large exophytic mid to lower pole right renal cyst measuring up to 2.4 cm on coronal series. Redemonstrated nodule measuring 2.7 cm involving the left adrenal gland versus 2.5 cm, previously. Adjacent abnormal soft tissue measures 3.3 cm versus 3.0 cm, previously. Abnormal retroperitoneal per ipancreatic soft tissue measuring approximately 6.2 x 4.2 cm. Versus 6.2 x 3.6 cm on 04/06/2022. This appears to be contiguous with the posterior aspect of the pancreas. There is dilatation of the main p ancreatic duct within the tail of the pancreas up to 6 mm. There is corresponding encasement of the c eliac artery. Moderate atherosclerotic calcifications infrarenal abdominal aorta. No dilated small bowel or free air. Normal appendix. Scattered moderate stool particularly in the right hemicolon. Limited assessment due to marked anasarca change. Bladder urine distended. Pelvic phleboliths. Pelvic structures distorted by the underlying pelvic asc ites. No osseous destructive process. IMPRESSION: 1. PREVIOUS GASTRIC PULL-THROUGH SURGERY. ONGOING MODERATE TO LARGE BILATERAL PLEURAL EFFUSIONS, JESSICA RE GENERALIZED ANASARCA, AND MODERATE ABDOMINOPELVIC ASCITES. WORSENING ATELECTASIS/COLLAPSE RIGHT PA DDLE LOBE. 2. POSTERIOR RIGHT HEPATIC DOME METASTASIS MEASURES 2.8 CM VERSUS 2.5 CM, ON RECENT PET/CT. 3. ABNORMAL NEOPLASTIC SOFT TISSUE ADJACENT TO THE LEFT ADRENAL GLAND MEASURING 3.3 CM VERSUS 3.0 CM ON 04/06/2022. THE ADJACENT LEFT ADRENAL NODULE MEASURES 2.7 CM BUT WAS NOT CLEARLY HYPERMETABOLIC ON THE PET/CT. 4. LARGER CONGLOMERATE LEFT UPPER RETROPERITONEAL MASS JUST ADJACENT, ENCASING THE CELIAC AXIS AND IN VADING ALONG THE POSTERIOR ASPECT OF THE PANCREAS MEASURING 6.2 X 4.2 CM (RELATIVELY UNCHANGED COMPAR ED TO 6.2 X 3.6 CM, ON THE RECENT PET/CT). 5. THROMBOSIS THROUGHOUT THE PORTAL VENOUS SYSTEM INVOLVING THE INTRAHEPATIC SYSTEM AND EXTENDING ALLYSON N INTO THE UPPER SMV. LIKELY BLAND THROMBUS GIVEN THE LACK OF FDG UPTAKE ON 04/06/2022.
[2022-05-01 00:34] LABS: African American GFR (CKD) 84.9 (60.0-200.0); Albumin 3.9 g/dL (3.8-4.9); Albumin/Globulin Ratio 1.58 (1.60-3.17); Anion Gap 13.3 mmol/L (10.00-18.00); BUN/Creat Ratio 31.26 Ratio (12.00-20.00); Blood Urea Nitrogen 32.2 mg/dL (9.0-27.0); Carbon Dioxide 21.5 mmol/L (20.0-27.5); Globulin 2.4 g/dL (1.6-3.3); Non-African American GFR(CKD) 73.3 (60.0-200.0); Potassium 3.9 mmol/L (3.5-5.5); Total Bilirubin 0.4 mg/dL (0.30-1.20); Total Protein 6.3 g/dL (6.2-8.2)
== END | disposition home or self-care (01) ==
LOC: RADCTMAIN 11:07
PROVIDERS: ATTEND Internal Medicine Hematology & Oncology
DX: C15.5 Malignant neoplasm of lower third of esophagus (principal); J90 Pleural effusion, not elsewhere classified; I81 Portal vein thrombosis; E27.8 Other specified disorders of adrenal gland; R18.8 Other ascites
CPT/HCPCS: 82565; 84520; 74177; 36415; Q9967; 80053

== ENCOUNTER 2022-05-03 15:58 | Emergency (ER) | payer MEDICARE, BC ==
[2022-05-03 16:34] VITALS: TEMP 98
[2022-05-03 17:42] LABS: ALT 29 U/L (4-49); AST 39 U/L (17-59); African American GFR (CKD) >90 (>60 ml/min/1.73 sqM); Albumin 3.5 g/dL (3.5-5.0); Alkaline Phosphatase 56 U/L (38-126); Anion Gap 4 mmol/L; Blood Urea Nitrogen 23 mg/dL (9-20); Calcium 8.4 mg/dL (8.4-10.2); Carbon Dioxide 25 mmol/L (22-30); Chloride 107 mmol/L (98-107); Glucose 98 mg/dL (74-99); Magnesium 1.8 mg/dL (1.6-2.3); Non-African American GFR(CKD) 86 (>60 ml/min/1.73 sqM); Phosphorus 2.9 mg/dL (2.5-4.5); Potassium 4.1 mmol/L (3.5-5.1); Sodium 136 mmol/L (137-145); Total Bilirubin 0.4 mg/dL (0.2-1.3); Total Protein 6.2 g/dL (6.3-8.2)
[2022-05-03 17:46] LABS: INR 1.1 (<1.2); Prothrombin Time 11.7 sec (9.0-12.0)
[2022-05-03 18:12] LABS: Basophils % (A) 0 %; Eosinophils % (A) 1 %; HCT 24.6 % (39.0-53.0); HGB 8.4 gm/dL (13.0-17.5); Lymphocytes # (A) 0.4 k/uL (1.0-4.8); Lymphocytes % (A) 16 %; MCH 37.6 pg (25.0-35.0); MCHC 34.1 g/dL (31.0-37.0); MCV 110.3 fL (80.0-100.0); Macrocytosis Marked; Mean Platelet Volume 8.9; Monocytes # (A) 0.3 k/uL (0-1.0); Monocytes % (A) 9 %; Neutrophils % (A) 72 %; Platelet Count 142 k/uL (150-450); RBC 2.23 m/uL (4.30-5.90); RDW 14.9 % (11.5-15.5); WBC 2.8 k/uL (3.8-10.6)
--- NOTE | 2022-05-03 18:12 | XR ---
EXAMINATION TYPE: XR chest 2V DATE OF EXAM: 05/03/2022 5:41 PM COMPARISON: Chest radiographs from 05/29/2013 TECHNIQUE: XR chest 2V Frontal and lateral views of the chest. CLINICAL INDICATION:Male, 71 years old with history of Weakness; FINDINGS: Lungs/Pleura: No evidence of focal consolidation or pneumothorax. Blunting of the costophrenic angles is present. Pulmonary vascularity: Unremarkable. Heart/mediastinum: Cardiomediastinal silhouette is unremarkable. Musculoskeletal: No acute osseous pathology. IMPRESSION: Bilateral pleural effusions with associated atelectasis. Increased from prior in in 2013.
[2022-05-03 18:26] LABS: Appearance,Urine Clear (Clear); Bilirubin,Urine Negative (Negative); Blood,Urine Negative (Negative); Color,Urine Yellow; Glucose,Urine (UA) Negative (Negative); Ketones,Urine Negative (Negative); Leukocyte Esterase,Urine Negative (Negative); Nitrite,Urine Negative (Negative); Protein,Urine Trace (Negative); Specific Gravity,Urine 1.033 (1.001-1.035)
--- NOTE | 2022-05-03 19:01 | CT ---
EXAMINATION TYPE: CT chest angio for PE CT DLP: 308.4 mGycm, Automated exposure control for dose reduction was used. DATE OF EXAM: 05/03/2022 6:35 PM COMPARISON: 04/06/2022 PET CLINICAL INDICATION:Male, 71 years old with history of dyspnea; dyspnea. Hx of esophageal ca TECHNIQUE/CONTRAST: CTA scan of the thorax is performed with IV Contrast, patient injected with 80 mL of Isovue 370, pulm onary embolism protocol. MIP images are created and reviewed. FINDINGS: Pulmonary Artery: There is no evidence for a filling defect within the pulmonary vasculature to sugge st acute pulmonary embolism. The pulmonary artery is of normal size. Lungs/Pleura: Large bilateral pleural effusions with associated atelectasis. Airway: Large airways are patent. Heart: Heart is within normal limits for size. Vasculature: No evidence of aortic aneurysm. Mediastinum: Post gastric pull-through changes with layering fluid in the gastric lumen. Musculoskeletal: No acute osseous abnormalities Soft Tissues: Diffuse soft tissue anasarca. Lower neck: No significant findings. Upper Abdomen: Heterogenous area within the right hepatic lobe measuring up to 3.4 cm. There is upper abdominal adenopathy in the mid abdomen. IMPRESSION: 1. No evidence of pulmonary embolism. 2. Large bilateral pleural effusions with associated atelectasis. 3. Postsurgical changes of gastric pull-through. 4. Suspicious right hepatic lobe mass is again seen similar to prior PET. 5. Upper abdominal adenopathy is again present and ill-defined given technique. 6. Diffuse anasarca of the soft tissues.
[2022-05-03 19:04] VITALS: BP 124/73; PULSE 53; RESP 18
--- NOTE | 2022-05-03 20:01 | ED ---
General Adult HPI - General Chief complaint: Weakness Stated complaint: weakness/sob Time Seen by Provider: 05/03/22 17:39 Source: patient, family, RN notes reviewed, old records reviewed Mode of arrival: ambulatory Limitations: no limitations - History of Present Illness Initial comments: Patient is a 71-year-old male with past medical history remarkable for esophageal cancer, status post surgery and chemo with the recent chemo, hypertension, who presents emergency Department with complaints of dyspnea. States he has been getting short of breath for the last month or so. Progressively worsening. States it is worse with exertion. Denies orthopnea. Denies PND. Denies cough. Does endorse bilateral lower extremity leg swelling as well. It is symmetrical and equal on both sides. Denies chest pain, abdominal pain, nausea, vomiting. Denies fevers, chills, sick contacts, cough. He is due to follow-up with his oncologist, Dr. Berrios next week. Patient did receive CT imaging of the abdomen and pelvis by his surgeon who did his esophage al surgery, a Dr. Calvin, this past week. He was contacted by their office, and told that he appears to have "a blood clot in my stomach." Was not given further details. Was instructed to follow-up with his oncologist next week. Imaging was done here. Presents for further evaluation. - Related Data Home Medications Medication Instructions Recorded Confirmed Cholecalciferol (Vitamin D3) 2,000 unit PO BID 06/19/17 02/09/20 [Vitamin D3] Vitamin B Complex 1 cap PO DAILY 06/19/17 02/09/20 Acetaminophen Tab [Tylenol Tab] 1,000 mg PO Q6H PRN 02/09/20 02/09/20 ondansetron HCL [Zofran] 4 mg PO Q8H PRN 02/09/20 02/09/20 Previous Rx's Medication Instructions Recorded Apixaban [Eliquis Starter Pack 5 - 10 mg PO DIRECTED 30 Days 05/03/22 (for VTE)] #1 each Allergies Allergy/AdvReac Type Severity Reaction Status Date / Time No Known Allergies Allergy Verified 02/09/20 09:55 Review of Systems ROS Statement: Those systems with pertinent positive or pertinent negative responses have been documented in the HPI. Review of Systems: CONST: Denies fever EYES: Denies blurry vision ENT: Denies nasal congestion C/V: Denies Chest pain RESP: Endorses shortness of breath GI: Denies abdominal pain : Denies dysuria SKIN: Denies rash. MSK: Denies joint pain. NEURO: Denies headache ROS Other: All systems not noted in ROS Statement are negative. Past Medical History Past Medical History: Cancer, Hypertension Additional Past Medical History / Comment(s): frequent bloating, difficulty swallowing, past hx of HTN, no current medications, esophageal cancer History of Any Multi-Drug Resistant Organisms: None Reported Additional Past Surgical History / Comment(s): JAW RECONSTRUCTION (OVER BITE), colonoscopy Past Anesthesia/Blood Transfusion Reactions: No Reported Reaction Past Psychological History: No Psychological Hx Reported Smoking Status: Current some day smoker Past Alcohol Use History: None Reported Past Drug Use History: None Reported - Past Family History Mother Family Medical History: Cancer Additional Family Medical History / Comment(s): COLON CANCER General Exam - General Exam Comments Initial Comments: General: Appears in no acute distress. HEAD: Normal with no signs of head trauma. EYES: PERRLA, EOMI, conjunctiva normal, no discharge. ENT: Hearing grossly intact, normal oropharynx. RESPIRATORY: Clear breath sounds bilaterally. No wheezes, rales, or rhonchi. No hypoxia at rest. No respiratory distress C/V: Regular rate and rhythm. S1 and S2 auscultated, bilateral 2+ pitting edema that is symmetrical, peripheral pulses 2+ and intact throughout ABD: Abd is soft, nontender, nondistended EXT: Normal range of motion, no obvious deformity SKIN: No rashes or lesions observed on exposed skin. NEURO: Alert and oriented 4. No focal deficits. Limitations: no limitations Course Vital Signs 05/03/22 05/03/22 05/03/22 16:31 18:02 18:09 Temperature 98 F Pulse Rate 63 59 L Respiratory 20 20 16 Rate Blood Pressure 92/65 119/78 O2 Sat by Pulse 99 95 Oximetry 05/03/22 05/03/22 05/03/22 18:58 20:08 20:11 Temperature Pulse Rate 53 L Respiratory 18 Rate Blood Pressure 124/73 O2 Sat by Pulse 95 91 L 92 L Oximetry Medical Decision Making - Medical Decision Making Was pt. sent in by a medical professional or institution? @ -No Did you speak to anyone other than the patient for history? @ -Yes, patient's . Did you review nursing and triage notes? @ -Yes, I agree. Were old charts reviewed? @ -Yes, old radiological studies, EKGs. Differential Diagnosis? @ -Differential Dyspnea: Coronary syndrome, arrhythmia, tamponade, asthma, COPD, pulmonary embolism, pneumonia, pneumothorax, pulmonary effusion, anaphylaxis, diabetic ketoacidosis, flailed chest, pulmonary contusion, diaphragmatic rupture, anemia, neuromuscular, this is not meant to be an all-inclusive list. EKG interpreted by me (3pts min.)? @ -Yes, see note. X-rays interpreted by me (1pt min.)? @ -Yes. Chest x-ray reveals bilateral pleural effusions. No infiltrate. CT interpreted by me (1pt min.)? @ -Chest. CT angiogram of the chest to evaluate for PE was negative for PE. Bilateral pleural effusions are present. Prior CT of the and pelvis was obtained and was interpreted by myself as showing a portal vein thrombus as well as abdominal masses. U/S interpreted by me (1pt. min.)? @ -none What testing was considered but not performed? (CT, X-rays, U/S, labs)? Why? @None What meds were considered but not given? Why? @ -none Did you discuss the management of the patient with other professionals? @ -Yes, vascular surgery on-call Dr. Vásquez. We discussed the portal vein thrombus and states that there is no intervention other than starting anticoagulation at this time. Stable for discharge home in terms of the portal vein thrombus. I also spoke with the patient's oncologist, Dr. Garcia who was also in agreement with outpatient follow-up after discussing the workup. Has an appointment with the patient next week. Did you reconcile home meds? @ -Yes Was smoking cessation discussed for >3mins.? @ -none Was critical care preformed (if so, how long)? @ -none Were there social determinants of health that impacted care today? How? (Homelessness, low income, unemployed, alcoholism, drug addiction, transportation, low edu. Level, literacy, decrease access to med. care, senior care, rehab)? @ -No Was there de-escalation of care discussed even if they declined? (Discuss DNR or withdrawal of care, Hospice)? @ -No What co-morbidities impacted this encounter? (DM, HTN, Smoking, COPD, CAD, Cancer, CVA, Hep., AIDS, mental health diagnosis, sleep apnea, morbid obesity)? @ -Esophageal cancer Was patient admitted / discharged? @ -Based on the patient's presentation and physical exam, he presents with findings concerning for possible congestive heart failure. He has exertional dyspnea as well as bilateral lower extremity pitting edema. Patient does have a prior CT which revealed a portal venous thrombosis obtained earlier this week. Symptoms have been ongoing for the last month or so. His no other symptoms at this time. Is saturating well on room air. Hemodynamically stable and within except for limits otherwise. I discussed like to obtain a cardiopulmonary workup as well as CT PE. He was in agreement this plan. EKG showed no signs of acute ischemia. Imaging was concerning for bilateral pleural effusions, however normal oxygenation at rest. Laboratory studies are remarkable for chronic leukopenia in the setting of cancer, a stable macrocytic anemia with a hemoglobin of 8.4. A chronic thrombocytopenia with a platelet count of 142. Coags are within acceptable limits. Troponin is undetectable. BNP is within acceptable limits at 530. Urine studies are unremarkable. CT angiogram for PE was negative. I discussed the patient's CT imaging with him from earlier this week as well as his current imaging. At this time I did recheck to vascular surgery on-call, Dr. Vásquez who cleared the patient for outpatient follow-up and recommended that I start the patient on L Garza. I did discuss with the patient's oncologist, Dr. Berrios who was in agreement with this plan and will follow the patient next week. I discussed the results of the CT imaging with the patient including the bilateral pleural effusions. He is having some intermittent symptomatic exertional dyspnea. We did do a ambulatory pulse ox which did decrease the justin ent's oxidation from 95% to 91-92% on room air. He is not in any noticeable respiratory distress. I did offer the patient admission for pulmonology evaluation concerning the pleural effusions and further evaluation with oncology inpatient, however he refuses at this time. He will return if his symptoms get worse. I do believe this is reasonable. Strict return precautions were discussed. Strict precautions regarding initiation of blood thinning medications were discussed, including return to the emergency department for any significant bleeds or falls with head injury. They expressed understanding morning agreement this plan. Patient was discharged home in fair condition at this time. I will provide the patient with a prescription for Eliquis. I instructed the patient to follow up with their PCP in the next 1-3 days. I instructed him to maintain her appointment with Dr. Berrios next week. I explained that the patient should return to the emergency department if they experience any worsening symptoms. Strict return precautions were discussed with the patient. The patient expressed understanding of these instructions. I answered all questions that the patient had. The patient was discharged home in fair condition with their prescriptions and follow up information. Undiagnosed new problem with uncertain prognosis? @ -Yes, portal venous thrombosis, bilateral pleural effusions Drug Therapy requiring intensive monitoring for toxicity (Heparin, Nitro, Insulin, Cardizem)? @ -none Were any procedures done? @ -none Diagnosis/symptom? @ -Portal venous thrombosis, bilateral pleural effusions in the setting of known esophageal cancer. Acute, or Chronic, or Acute on Chronic? @ -Acute Uncomplicated (without systemic symptoms) or Complicated (systemic symptoms)? @ -Complicated Side effects of treatment? @ -none Exacerbation, Progression, or Severe Exacerbation] @ -no Poses a threat to life or bodily function? @ -no - Lab Data Result diagrams: 05/03/22 16:54 05/03/22 16:54 Lab Results 05/03/22 05/03/22 05/03/22 Range/Units 16:54 16:54 16:54 WBC 2.8 L (3.8-10.6) k/uL RBC 2.23 L (4.30-5.90) m/uL Hgb 8.4 L (13.0-17.5) gm/dL Hct 24.6 L (39.0-53.0) % MCV 110.3 H (80.0-100.0) fL MCH 37.6 H (25.0-35.0) pg MCHC 34.1 (31.0-37.0) g/dL RDW 14.9 (11.5-15.5) % Plt Count 142 L (150-450) k/uL MPV 8.9 Neutrophils % 72 % Lymphocytes % 16 % Monocytes % 9 % Eosinophils % 1 % Basophils % 0 % Neutrophils # 2.0 (1.3-7.7) k/uL Lymphocytes # 0.4 L (1.0-4.8) k/uL Monocytes # 0.3 (0-1.0) k/uL Eosinophils # 0.0 (0-0.7) k/uL Basophils # 0.0 (0-0.2) k/uL Manual Slide Review Performed Macrocytosis Marked A PT 11.7 (9.0-12.0) sec INR 1.1 (<1.2) APTT 24.0 (22.0-30.0) sec Sodium 136 L (137-145) mmol/L Potassium 4.1 (3.5-5.1) mmol/L Chloride 107 (98-107) mmol/L Carbon Dioxide 25 (22-30) mmol/L Anion Gap 4 mmol/L BUN 23 H (9-20) mg/dL Creatinine 0.90 (0.66-1.25) mg/dL Est GFR (CKD-EPI)AfAm >90 (>60 ml/min/1.73 sqM) Est GFR (CKD-EPI)NonAf 86 (>60 ml/min/1.73 sqM) Glucose 98 (74-99) mg/dL Calcium 8.4 (8.4-10.2) mg/dL Phosphorus 2.9 (2.5-4.5) mg/dL Magnesium 1.8 (1.6-2.3) mg/dL Total Bilirubin 0.4 (0.2-1.3) mg/dL AST 39 (17-59) U/L ALT 29 (4-49) U/L Alkaline Phosphatase 56 (38-126) U/L Troponin I (0.000-0.034) ng/mL NT-Pro-B Natriuret Pep pg/mL Total Protein 6.2 L (6.3-8.2) g/dL Albumin 3.5 (3.5-5.0) g/dL TSH 73.800 H (0.465-4.680) mIU/L Urine Color Urine Appearance (Clear) Urine pH (5.0-8.0) Ur Specific [place] (1.001-1.035) Urine Protein (Negative) Urine Glucose (UA) (Negative) Urine Ketones (Negative) Urine Blood (Negative) Urine Nitrite (Negative) Urine Bilirubin (Negative) Urine Urobilinogen (<2.0) mg/dL Ur Leukocyte Esterase (Negative) Blood Type Blood Type Recheck Bld Type Recheck Status Antibody Screen Spec Expiration Date 1205/03/22 05/03/22 Range/Units 16:54 16:54 16:54 WBC (3.8-10.6) k/uL RBC (4.30-5.90) m/uL Hgb (13.0-17.5) gm/dL Hct (39.0-53.0) % MCV (80.0-100.0) fL MCH (25.0-35.0) pg MCHC (31.0-37.0) g/dL RDW (11.5-15.5) % Plt Count (150-450) k/uL MPV Neutrophils % % Lymphocytes % % Monocytes % % Eosinophils % % Basophils % % Neutrophils # (1.3-7.7) k/uL Lymphocytes # (1.0-4.8) k/uL Monocytes # (0-1.0) k/uL Eosinophils # (0-0.7) k/uL Basophils # (0-0.2) k/uL Manual Slide Review Macrocytosis PT (9.0-12.0) sec INR (<1.2) APTT (22.0-30.0) sec Sodium (137-145) mmol/L Potassium (3.5-5.1) mmol/L Chloride (98-107) mmol/L Carbon Dioxide (22-30) mmol/L Anion Gap mmol/L BUN (9-20) mg/dL Creatinine (0.66-1.25) mg/dL Est GFR (CKD-EPI)AfAm (>60 ml/min/1.73 sqM) Est GFR (CKD-EPI)NonAf (>60 ml/min/1.73 sqM) Glucose (74-99) mg/dL Calcium (8.4-10.2) mg/dL Phosphorus (2.5-4.5) mg/dL Magnesium (1.6-2.3) mg/dL Total Bilirubin (0.2-1.3) mg/dL AST (17-59) U/L ALT (4-49) U/L Alkaline Phosphatase (38-126) U/L Troponin I <0.012 (0.000-0.034) ng/mL NT-Pro-B Natriuret Pep 539 pg/mL Total Protein (6.3-8.2) g/dL Albumin (3.5-5.0) g/dL TSH (0.465-4.680) mIU/L Urine Color Urine Appearance (Clear) Urine pH (5.0-8.0) Ur Specific [place] (1.001-1.035) Urine Protein (Negative) Urine Glucose (UA) (Negative) Urine Ketones (Negative) Urine Blood (Negative) Urine Nitrite (Negative) Urine Bilirubin (Negative) Urine Urobilinogen (<2.0) mg/dL Ur Leukocyte Esterase (Negative) Blood Type A Positive Blood Type Recheck No Previous Record Bld Type Recheck Status CABO Indicated Antibody Screen NEGATIVE Spec Expiration Date 05/06/2022 - 235305/03/22 Range/Units 18:09 WBC (3.8-10.6) k/uL RBC (4.30-5.90) m/uL Hgb (13.0-17.5) gm/dL Hct (39.0-53.0) % MCV (80.0-100.0) fL MCH (25.0-35.0) pg MCHC (31.0-37.0) g/dL RDW (11.5-15.5) % Plt Count (150-450) k/uL MPV Neutrophils % % Lymphocytes % % Monocytes % % Eosinophils % % Basophils % % Neutrophils # (1.3-7.7) k/uL Lymphocytes # (1.0-4.8) k/uL Monocytes # (0-1.0) k/uL Eosinophils # (0-0.7) k/uL Basophils # (0-0.2) k/uL Manual Slide Review Macrocytosis PT (9.0-12.0) sec INR (<1.2) APTT (22.0-30.0) sec Sodium (137-145) mmol/L Potassium (3.5-5.1) mmol/L Chloride (98-107) mmol/L Carbon Dioxide (22-30) mmol/L Anion Gap mmol/L BUN (9-20) mg/dL Creatinine (0.66-1.25) mg/dL Est GFR (CKD-EPI)AfAm (>60 ml/min/1.73 sqM) Est GFR (CKD-EPI)NonAf (>60 ml/min/1.73 sqM) Glucose (74-99) mg/dL Calcium (8.4-10.2) mg/dL Phosphorus (2.5-4.5) mg/dL Magnesium (1.6-2.3) mg/dL Total Bilirubin (0.2-1.3) mg/dL AST (17-59) U/L ALT (4-49) U/L Alkaline Phosphatase (38-126) U/L Troponin I (0.000-0.034) ng/mL NT-Pro-B Natriuret Pep pg/mL Total Protein (6.3-8.2) g/dL Albumin (3.5-5.0) g/dL TSH (0.465-4.680) mIU/L Urine Color Yellow Urine Appearance Clear (Clear) Urine pH 6.0 (5.0-8.0) Ur Specific [place] 1.033 (1.001-1.035) Urine Protein Trace H (Negative) Urine Glucose (UA) Negative (Negative) Urine Ketones Negative (Negative) Urine Blood Negative (Negative) Urine Nitrite Negative (Negative) Urine Bilirubin Negative (Negative) Urine Urobilinogen 2.0 (<2.0) mg/dL Ur Leukocyte Esterase Negative (Negative) Blood Type Blood Type Recheck Bld Type Recheck Status Antibody Screen Spec Expiration Date - EKG Data -: EKG Interpreted by Me EKG Comments: 12-lead Electrocardiogram Interpretation Note EKG was reviewed and interpreted by myself. 12-lead ECG performed at 1648 is interpreted by me as revealing normal sinus rhythm at a rate of 63 beats per minute. [place] is normal. QRS duration is 80 ms, NE interval is 130 ms, QTc is 423 ms.. There were no ST or T wave abnormalities to suggest myocardial ischemia or injury. R wave progression across the precordium was satisfactory. By my interpretation this EKG is non-diagnostic for acute ischemia. When c ompared with EKG from 02/09/2020 the only new changes the low voltage. No ischemic changes. Disposition Clinical Impression: Portal vein thrombosis, Pleural effusion, Dyspnea Disposition: HOME SELF-CARE Condition: Fair Instructions (If sedation given, give patient instructions): Pleural Effusion (DC), Venous Thromboembolism (ED) Additional Instructions: portal venous thrombosis. bilateral pleural effusions. Prescriptions: Apixaban [Eliquis Starter Pack (for VTE)] 5 - 10 mg PO DIRECTED 30 Days #1 each Is patient prescribed a controlled substance at d/c from ED?: No Referrals: Juan M Mayberry MD [Primary Care Provider] - 1-2 days Time of Disposition: 19:55
[2022-05-03] MEDS ORDERED: APIXABAN 5 MG TAB PO STA (20:07)
== END 2022-05-03 20:53 | disposition home or self-care (01) ==
LOC: EC 15:58
DX: I81 Portal vein thrombosis (principal); J90 Pleural effusion, not elsewhere classified; I10 Essential (primary) hypertension; F17.200 Nicotine dependence, unspecified, uncomplicated
CPT/HCPCS: 93005; 86900; 86901; 83880; 80053; 83735; 84100; 84443; 84484; 85025; 85610; 85730; 86850; 71046; 71275; 99285; Q9967; 36415; 81003

== ENCOUNTER 2022-05-16 20:12 | Inpatient (IN) | payer MEDICARE, BC ==
[2022-05-16] MEDS ORDERED: ONDANSETRON 4 MG/2 ML VIAL IVP STA (21:11)
--- NOTE | 2022-05-16 21:42 | CT ---
EXAMINATION TYPE: CT brain wo con CT DLP: 1150.4 mGycm, Automated exposure control for dose reduction was used. DATE OF EXAM: 05/16/2022 9:36 PM COMPARISON: None. CLINICAL INDICATION:Male, 71 years old with history of Altered mental status, weakness and ams. TECHNIQUE: Brain: Axial CT images of the brain were obtained with coronal and sagittal reformats created and rev iewed. Contrast used: None. Oral contrast used: None. FINDINGS: Brain: Extra-axial spaces: No abnormal extra-axial fluid collections. Ventricular system: Within normal limits Cerebral parenchyma: No acute intraparenchymal hemorrhage or mass effect. The oliva-white junction is well differentiated. Cerebellum: Unremarkable. Mass effect: No evidence of midline shift. Intracranial vasculature: Atherosclerotic calcifications of the intracranial vessels. Soft tissues: Normal. Calvarium/osseous structures: No depressed skull fracture. Paranasal sinuses and mastoid air cells: Mild scattered paranasal sinus disease. Visualized orbits: Orbital contents are intact. IMPRESSION: No acute intracranial process.
--- NOTE | 2022-05-16 21:44 | XR ---
EXAMINATION TYPE: XR chest 2V DATE OF EXAM: 05/16/2022 9:33 PM COMPARISON: Chest radiographs from 05/03/2022 TECHNIQUE: XR chest 2V Frontal and lateral views of the chest. CLINICAL INDICATION:Male, 71 years old with history of altered mental status; FINDINGS: Lungs/Pleura: Blunting of the costophrenic angles right greater than left. Associated atelectasis. Pulmonary vascularity: Unremarkable. Heart/mediastinum: Cardiomediastinal silhouette is obscured due to overlying and adjacent opacities. Musculoskeletal: No acute osseous pathology. IMPRESSION: Moderate bilateral pleural effusions with associated atelectasis.
[2022-05-16 21:55] LABS: Anisocytosis Slight; Basophils % (A) 0 %; Eosinophils % (A) 0 %; Hypochromasia Slight; Lymphocytes # (A) 0.4 k/uL (1.0-4.8); Lymphocytes % (A) 12 %; MCH 37.1 pg (25.0-35.0); MCHC 32.3 g/dL (31.0-37.0); Macrocytosis Marked; Mean Platelet Volume 8.9; Monocytes # (A) 0.3 k/uL (0-1.0); Monocytes % (A) 9 %; Neutrophils # (A) 2.5 k/uL (1.3-7.7); Neutrophils % (A) 77 %; Platelet Count 183 k/uL (150-450); RBC 1.41 m/uL (4.30-5.90); RDW 18.4 % (11.5-15.5); WBC 3.3 k/uL (3.8-10.6)
[2022-05-16 22:06] LABS: ALT 31 U/L (4-49); AST 43 U/L (17-59); African American GFR (CKD) 73 (>60 ml/min/1.73 sqM); Albumin 3.5 g/dL (3.5-5.0); Alcohol <10 mg/dL; Alkaline Phosphatase 46 U/L (38-126); Anion Gap 9 mmol/L; Blood Urea Nitrogen 64 mg/dL (9-20); Calcium 8.8 mg/dL (8.4-10.2); Carbon Dioxide 21 mmol/L (22-30); Chloride 110 mmol/L (98-107); Glucose 105 mg/dL (74-99); Non-African American GFR(CKD) 63 (>60 ml/min/1.73 sqM); Potassium 4.1 mmol/L (3.5-5.1); Sodium 140 mmol/L (137-145); Total Bilirubin 0.4 mg/dL (0.2-1.3); Total Protein 6.1 g/dL (6.3-8.2)
[2022-05-16 22:14] LABS: HCT 16.3 % (39.0-53.0); HGB 5.2 gm/dL (13.0-17.5)
[2022-05-16 22:30] LABS: INR 1.2 (<1.2); Partial Thromboplastin Time 24.4 sec (22.0-30.0); Prothrombin Time 12.1 sec (9.0-12.0)
[2022-05-16] MEDS ORDERED: ACETAMINOPHEN TAB 325 MG TAB PO PRN (22:56)
[2022-05-16] MEDS ORDERED: NALOXONE 0.4 MG/ML 1 ML VIAL IV PRN (22:56)
[2022-05-16] MEDS ORDERED: SODIUM CHLORIDE 0.9% 1,000 ML IV SCH (23:00)
--- NOTE | 2022-05-16 23:14 | ED ---
Weakness HPI - General Chief complaint: Weakness Stated complaint: Weakness Time Seen by Provider: 05/16/22 20:22 Source: patient Mode of arrival: EMS Limitations: altered mental status (Patient appears delirious.) - History of Present Illness Initial comments: This patient is a 71-year-old man with history of esophageal cancer, status post resection with pull through. He had a positive lymph node and there is reportedly recurrence with spread to the liver. His original diagnosis and treatment approximate 2 years ago. The patient comes to the emergency department for weakness and not feeling right. Patient states that he feels like he is "backwards." The patient also was reportedly scheduled for port placement as he is going to have some additional treatment but that was canceled, reportedly his surgeon was called into emergency case and not able to perform the procedure. MD Complaint: generalized weakness, difficulty walking -: days(s) Location: generalized Quality: constant Consistency: constant Improves with: none Worsens with: none Associated Symptoms: confusion - Related Data Home Medications Medication Instructions Recorded Confirmed Cholecalciferol (Vitamin D3) 2,000 unit PO BID 06/19/17 05/17/22 [Vitamin D3] Levothyroxine Sodium [Synthroid] 200 mcg PO DAILY 05/13/22 05/17/22 Omeprazole 20 mg PO DAILY 05/13/22 05/17/22 oxyCODONE-APAP 7.5-325MG [Percocet 1 tab PO Q6H PRN 05/13/22 05/17/22 7.5-325 mg] Apixaban [Eliquis Starter Pack See Taper PO DIRECTED 05/17/22 05/17/22 (for VTE)] Allergies Allergy/AdvReac Type Severity Reaction Status Date / Time No Known Allergies Allergy Verified 05/17/22 09:17 Review of Systems ROS Statement: Those systems with pertinent positive or pertinent negative responses have been documented in the HPI. ROS Other: All systems not noted in ROS Statement are negative. Limitations: ROS unobtainable due to patients medical condition (Delirious) Constitutional: Reports: weakness. Denies: fever Eyes: Denies: vision change Respiratory: Denies: cough, dyspnea Cardiovascular: Denies: chest pain Gastrointestinal: Denies: abdominal pain, vomiting, diarrhea Genitourinary: Denies: dysuria, hematuria Musculoskeletal: Denies: back pain Skin: Denies: rash Neurological: Reports: confusion. Denies: headache, weakness, numbness Psychiatric: Denies: depression Past Medical History Past Medical History: Cancer, Hypertension Additional Past Medical History / Comment(s): frequent bloating, difficulty swallowing, past hx of HTN, no current medications, esophageal cancer History of Any Multi-Drug Resistant Organisms: None Reported Additional Past Surgical History / Comment(s): JAW RECONSTRUCTION (OVER BITE), colonoscopy Past Anesthesia/Blood Transfusion Reactions: No Reported Reaction Smoking Status: Current some day smoker - Past Family History Mother Family Medical History: Cancer Additional Family Medical History / Comment(s): COLON CANCER General Exam Limitations: no limitations, physical limitation General appearance: alert, other Head exam: Present: atraumatic, normocephalic Eye exam: Present: normal appearance, PERRL, EOMI, other (Conjunctival pallor). Absent: scleral icterus, conjunctival injection ENT exam: Present: mucous membranes dry, other (Mucosal pallor) Neck exam: Present: normal inspection, full ROM. Absent: tenderness, meningismus Respiratory exam: Present: normal lung sounds bilaterally. Absent: respiratory distress, wheezes, rales, rhonchi, stridor Cardiovascular Exam: Present: regular rate, normal rhythm, normal heart sounds. Absent: systolic murmur, diastolic murmur, rubs, gallop GI/Abdominal exam: Present: soft. Absent: distended, tenderness, guarding, rebound, rigid, mass Extremities exam: Present: normal inspection. Absent: pedal edema, calf tenderness Neurological exam: Present: alert, oriented X3, CN II-XII intact. Absent: motor sensory deficit Skin exam: Present: warm, dry, intact, pallor. Absent: rash Course Vital Signs 05/16/22 05/16/22 05/16/22 20:28 20:57 22:00 Temperature 97.2 F L Pulse Rate 64 81 68 Respiratory 16 16 16 Rate Blood Pressure 99/62 106/68 118/82 O2 Sat by Pulse 94 L 94 L 95 Oximetry 05/16/22 23:25 Temperature Pulse Rate 70 Respiratory 16 Rate Blood Pressure 98/62 O2 Sat by Pulse 92 L Oximetry Medical Decision Making - Medical Decision Making 's patient is 71-year-old man with history of esophageal cancer, presenting with generalized weakness and confusion. It is apparent that patient anemic. Patient and his both state that he has been pale for quite some time this is not new. He also denies bloody or tarry stools though patient found to be Hemoccult positive. Patient taking Lovenox for portal vein thrombosis. Patient will be admitted for transfusion. Patient's also will have consult for Dr. Loco as he was to have Port placement but this was held due to scheduling conflict. The patient has been holding Lovenox for 2 and half days in anticipation of procedure Was pt. sent in by a medical professional or institution? @ -no Did you speak to anyone other than the patient for history? @ -[Patient's gave additional history Did you review nursing and triage notes? @ -[agree Were old charts reviewed? @ -[Reviewed previous admission notes Differential Diagnosis? @ -[Differential Altered Mental Status: Hypoglycemia, DKA, hypercapnia, ETOH, overdose, CO poisoning, trauma, myxedema coma, HTN encephalopathy, infection, encephalitis, psychosis, intercranial hemorrhage, hepatic encephalopathy, meningitis, CVA, anemia, this is not meant to be an all-inclusive list EKG interpreted by me (3pts min.)? @ -[See chart X-rays interpreted by me (1pt min.)? @ -[See chart CT interpreted by me (1pt min.)? @ -[See chart U/S interpreted by me (1pt. min.)? @ -[none] What testing was considered but not performed? (CT, X-rays, U/S, labs)? Why? @ [None What meds were considered but not given? Why? @ -[none] Did you discuss the management of the patient with other professionals? @ -[Admitting physician Did you reconcile home meds? @ -[Yes Was smoking cessation discussed for >3mins.? @ -[none] Was critical care preformed (if so, how long)? @ -[Yes, see chart Were there social determinants of health that impacted care today? How? (Homele ssness, low income, unemployed, alcoholism, drug addiction, transportation, low edu. Level, literacy, decrease access to med. care, longterm, rehab)? @ -[No Was there de-escalation of care discussed even if they declined? (Discuss DNR or withdrawal of care, Hospice)? @ -[Discussed CODE STATUS, family is not receptive to discussion What co-morbidities impacted this encounter? (DM, HTN, Smoking, COPD, CAD, Cancer, CVA, Hep., AIDS, mental health diagnosis, sleep apnea, morbid obesity)? @ -[Cancer Was patient admitted / discharged? @ -[Patient admitted Undiagnosed new problem with uncertain prognosis? @ -[none] Drug Therapy requiring intensive monitoring for toxicity (Heparin, Nitro, Insulin, Cardizem)? @ -[Blood administration Were any procedures done? @ -[none] Diagnosis/symptom? @ -[Anemia Acute, or Chronic, or Acute on Chronic? @ -[Acute on chronic anemia Uncomplicated (without systemic symptoms) or Complicated (systemic symptoms)? @ -[Complicated Side effects of treatment? @ -[none] Exacerbation, Progression, or Severe Exacerbation] @ -[no] Poses a threat to life or bodily function? @ -[Yes - Lab Data Result diagrams: 05/18/22 11:56 05/18/22 06:07 Lab Results 05/16/22 05/16/22 05/16/22 Range/Units 21:02 21:02 21:02 WBC 3.3 L (3.8-10.6) k/uL RBC 1.41 L (4.30-5.90) m/uL Hgb 5.2 L* D (13.0-17.5) gm/dL Hct 16.3 L* (39.0-53.0) % MCV 115.0 H (80.0-100.0) fL MCH 37.1 H (25.0-35.0) pg MCHC 32.3 (31.0-37.0) g/dL RDW 18.4 H (11.5-15.5) % Plt Count 183 (150-450) k/uL MPV 8.9 Neutrophils % 77 % Lymphocytes % 12 % Monocytes % 9 % Eosinophils % 0 % Basophils % 0 % Neutrophils # 2.5 (1.3-7.7) k/uL Lymphocytes # 0.4 L (1.0-4.8) k/uL Monocytes # 0.3 (0-1.0) k/uL Eosinophils # 0.0 (0-0.7) k/uL Basophils # 0.0 (0-0.2) k/uL Hypochromasia Slight Anisocytosis Slight Macrocytosis Marked A PT 12.1 H (9.0-12.0) sec INR 1.2 H (<1.2) APTT 24.4 (22.0-30.0) sec Sodium 140 (137-145) mmol/L Potassium 4.1 (3.5-5.1) mmol/L Chloride 110 H (98-107) mmol/L Carbon Dioxide 21 L (22-30) mmol/L Anion Gap 9 mmol/L BUN 64 H (9-20) mg/dL Creatinine 1.17 (0.66-1.25) mg/dL Est GFR (CKD-EPI)AfAm 73 (>60 ml/min/1.73 sqM) Est GFR (CKD-EPI)NonAf 63 (>60 ml/min/1.73 sqM) Glucose 105 H (74-99) mg/dL Calcium 8.8 (8.4-10.2) mg/dL Total Bilirubin 0.4 (0.2-1.3) mg/dL AST 43 (17-59) U/L ALT 31 (4-49) U/L Alkaline Phosphatase 46 (38-126) U/L Ammonia (<30) umol/L Troponin I (0.000-0.034) ng/mL Total Protein 6.1 L (6.3-8.2) g/dL Albumin 3.5 (3.5-5.0) g/dL Stool Occult Blood (Negative) Serum Alcohol <10 mg/dL Blood Type Blood Type Recheck Bld Type Recheck Status Antibody Screen Crossmatch Spec Expiration Date 05/16/22 05/16/22 05/16/22 Range/Units 21:02 21:02 21:14 WBC (3.8-10.6) k/uL RBC (4.30-5.90) m/uL Hgb (13.0-17.5) gm/dL Hct (39.0-53.0) % MCV (80.0-100.0) fL MCH (25.0-35.0) pg MCHC (31.0-37.0) g/dL RDW (11.5-15.5) % Plt Count (150-450) k/uL MPV Neutrophils % % Lymphocytes % % Monocytes % % Eosinophils % % Basophils % % Neutrophils # (1.3-7.7) k/uL Lymphocytes # (1.0-4.8) k/uL Monocytes # (0-1.0) k/uL Eosinophils # (0-0.7) k/uL Basophils # (0-0.2) k/uL Hypochromasia Anisocytosis Macrocytosis PT (9.0-12.0) sec INR (<1.2) APTT (22.0-30.0) sec Sodium (137-145) mmol/L Potassium (3.5-5.1) mmol/L Chloride (98-107) mmol/L Carbon Dioxide (22-30) mmol/L Anion Gap mmol/L BUN (9-20) mg/dL Creatinine (0.66-1.25) mg/dL Est GFR (CKD-EPI)AfAm (>60 ml/min/1.73 sqM) Est GFR (CKD-EPI)NonAf (>60 ml/min/1.73 sqM) Glucose (74-99) mg/dL Calcium (8.4-10.2) mg/dL Total Bilirubin (0.2-1.3) mg/dL AST (17-59) U/L ALT (4-49) U/L Alkaline Phosphatase (38-126) U/L Ammonia 77 H (<30) umol/L Troponin I <0.012 (0.000-0.034) ng/mL Total Protein (6.3-8.2) g/dL Albumin (3.5-5.0) g/dL Stool Occult Blood (Negative) Serum Alcohol mg/dL Blood Type A Positive Blood Type Recheck A Pos Bld Type Recheck Status No Antibody Screen NEGATIVE Crossmatch See Detail Spec Expiration Date 05/19/2022 - 231305/16/22 Range/Units 21:50 WBC (3.8-10.6) k/uL RBC (4.30-5.90) m/uL Hgb (13.0-17.5) gm/dL Hct (39.0-53.0) % MCV (80.0-100.0) fL MCH (25.0-35.0) pg MCHC (31.0-37.0) g/dL RDW (11.5-15.5) % Plt Count (150-450) k/uL MPV Neutrophils % % Lymphocytes % % Monocytes % % Eosinophils % % Basophils % % Neutrophils # (1.3-7.7) k/uL Lymphocytes # (1.0-4.8) k/uL Monocytes # (0-1.0) k/uL Eosinophils # (0-0.7) k/uL Basophils # (0-0.2) k/uL Hypochromasia Anisocytosis Macrocytosis PT (9.0-12.0) sec INR (<1.2) APTT (22.0-30.0) sec Sodium (137-145) mmol/L Potassium (3.5-5.1) mmol/L Chloride (98-107) mmol/L Carbon Dioxide (22-30) mmol/L Anion Gap mmol/L BUN (9-20) mg/dL Creatinine (0.66-1.25) mg/dL Est GFR (CKD-EPI)AfAm (>60 ml/min/1.73 sqM) Est GFR (CKD-EPI)NonAf (>60 ml/min/1.73 sqM) Glucose (74-99) mg/dL Calcium (8.4-10.2) mg/dL Total Bilirubin (0.2-1.3) mg/dL AST (17-59) U/L ALT (4-49) U/L Alkaline Phosphatase (38-126) U/L Ammonia (<30) umol/L Troponin I (0.000-0.034) ng/mL Total Protein (6.3-8.2) g/dL Albumin (3.5-5.0) g/dL Stool Occult Blood Positive (Negative) Serum Alcohol mg/dL Blood Type Blood Type Recheck Bld Type Recheck Status Antibody Screen Crossmatch Spec Expiration Date - EKG Data -: EKG Interpreted by Me (Extremely limited by artifact) Interpretation: other (Rhythm appears to be atrial fibrillation though the interpretation extremely limited by underlying artifact due to tremor) Critical Care Time Critical Care Time: Yes (35 minutes) Disposition Clinical Impression: Anemia, Delirium Disposition: ADMITTED IP TO THIS [facility] Condition: Serious Is patient prescribed a controlled substance at d/c from ED?: No
--- NOTE | 2022-05-17 03:12 | P.HPIM ---
History of Present Illness H&P Date: 05/17/22 Chief Complaint: anemia 71 year old male diagnosed and had surgery for esophageal cancer of the lower third after long history of GERD back in 03/2020. patient recently found to have progression of the disease , with complications related to portal vein thrombosis , he was started on eliquis ,and bilateral pleural effusion, He chose to pursue chemotherapy again, and presented today for new port insertion , but his surgeon was called for an emergency , and he could not get it done. patient slightly confused and could not explain why exactly he went to the ED, but possibly due to progressive generalized weakness. he feels tired and cold all the time, denies any difficulty breathing or chest pian , denies any GI bleeding. admits to poor appetite . he denies any pain at this time. in the ED, he was found to be very pale and weak. blood work revealed acute on chronic anemia of 5.5. I discussed the case with ED attending, and accepted the admission for blood transfusion , and supportive care, with general surgery to follow up tomorrow on port insertion. moreover patient ammonia is elevated , and occult blood test returned positive Review of Systems ROS unobtainable: due to mental status Past Medical History Past Medical History: Cancer, Hypertension Additional Past Medical History / Comment(s): frequent bloating, difficulty swallowing, past hx of HTN, no current medications, esophageal cancer History of Any Multi-Drug Resistant Organisms: None Reported Additional Past Surgical History / Comment(s): JAW RECONSTRUCTION (OVER BITE), colonoscopy Past Anesthesia/Blood Transfusion Reactions: No Reported Reaction Smoking Status: Current some day smoker - Past Family History Mother Family Medical History: Cancer Additional Family Medical History / Comment(s): COLON CANCER Medications and Allergies Home Medications Medication Instructions Recorded Confirmed Type Cholecalciferol (Vitamin D3) 2,000 unit PO BID 06/19/17 05/13/22 History [Vitamin D3] Apixaban [Eliquis Starter Pack 5 - 10 mg PO DIRECTED 30 Days 05/03/22 05/13/22 Rx (for VTE)] #1 each Levothyroxine Sodium [Synthroid] 200 mcg PO DAILY 05/13/22 05/13/22 History Omeprazole 20 mg PO DAILY 05/13/22 05/13/22 History oxyCODONE-APAP 7.5-325MG [Percocet 1 tab PO Q6H PRN 05/13/22 05/13/22 History 7.5-325 mg] Allergies Allergy/AdvReac Type Severity Reaction Status Date / Time No Known Allergies Allergy Verified 05/13/22 11:15 Physical Exam Vitals: Vital Signs Temp Pulse Pulse Resp BP BP Pulse Ox 05/17/22 00:28 97.4 F L 80 14 88/48 90 L 05/17/22 00:27 97.4 F L 91 12 88/48 90 L 05/17/22 00:08 96.3 F L 87 14 94/56 90 L 05/16/22 23:58 97.3 F L 74 16 92/58 90 L 05/16/22 23:36 96.3 F L 90 16 113/70 90 L 05/16/22 23:25 70 16 98/62 92 L 05/16/22 22:00 68 16 118/82 95 05/16/22 20:57 97.2 F L 81 16 106/68 94 L 05/16/22 20:28 64 16 99/62 94 L Intake and Output 05/16/22 05/16/22 05/17/22 14:59 22:59 06:59 Intake Total 0 Balance 0 Intake: Blood Product 0 Rc As-1 Unit 0 [id number] Other: Weight 106 kg Constitutional: No acute distress, cooperative, seems confused and restless at times Eyes: Anicteric sclerae, moist conjunctiva, Pupils equal round reactive to light, clinical pallor ENMT: NC/AT Oropharynx clear, no erythema, or exudates Neck: Supple, no masses, or JVD No carotid bruits No thyromegaly Lungs: decrease breath sounds over mid and lower third of the lungs bilaterally , no wheezing no rhonchi decrease note of percussion over lung bases bilaterally Normal respiratory effort, no accessory muscle use Cardiovascular: Heart irregular in rate and rhythm, No murmurs, gallops, or rubs trace bilateral leg edema Abdominal: Soft Nontender, no guarding, rebound or rigidity Abdomen moving with respiration Normoactive bowel sounds Skin: Normal temperature, tone, texture, turgor Extremities: No digital cyanosis Pedal pulses intact and symmetrical Radial pulses intact and symmetrical No calf tenderness Psychiatric: Alert and oriented to person, place and time, but seems co nfused at times, and unreliable with history taking he answers no to everything and denies any complaint Neuro Muscles Strength 3-4/5 in all 4 extremities Sensation to light touch grossly present throughout Cranial nerves II-XII grossly intact Results CBC & Chem 7: 05/16/22 21:02 05/16/22 21:02 Labs: Abnormal Lab Results - Last 24 Hours (Table) 05/16/22 05/16/22 05/16/22 Range/Units 21:02 21:02 21:02 WBC 3.3 L (3.8-10.6) k/uL RBC 1.41 L (4.30-5.90) m/uL Hgb 5.2 L* D (13.0-17.5) gm/dL Hct 16.3 L* (39.0-53.0) % MCV 115.0 H (80.0-100.0) fL MCH 37.1 H (25.0-35.0) pg RDW 18.4 H (11.5-15.5) % Lymphocytes # 0.4 L (1.0-4.8) k/uL Macrocytosis Marked A PT 12.1 H (9.0-12.0) sec INR 1.2 H (<1.2) Chloride 110 H (98-107) mmol/L Carbon Dioxide 21 L (22-30) mmol/L BUN 64 H (9-20) mg/dL Glucose 105 H (74-99) mg/dL Ammonia (<30) umol/L Total Protein 6.1 L (6.3-8.2) g/dL Crossmatch 05/16/22 05/16/22 Range/Units 21:02 21:14 WBC (3.8-10.6) k/uL RBC (4.30-5.90) m/uL Hgb (13.0-17.5) gm/dL Hct (39.0-53.0) % MCV (80.0-100.0) fL MCH (25.0-35.0) pg RDW (11.5-15.5) % Lymphocytes # (1.0-4.8) k/uL Macrocytosis PT (9.0-12.0) sec INR (<1.2) Chloride (98-107) mmol/L Carbon Dioxide (22-30) mmol/L BUN (9-20) mg/dL Glucose (74-99) mg/dL Ammonia 77 H (<30) umol/L Total Protein (6.3-8.2) g/dL Crossmatch See Detail Assessment and Plan Assessment: acute on chronic anemia rule out GI bleeding leukopenia occult blood test positive hold eliquis protonix tranfuse 2 UPRBC supplemental oxygen as needed monitor for any evidence of bleeding await general surgery input portal vein thrombosis , recent diagnosis 10 days ago hold eliquis , until GI bleeding ruled out await general surgery input regarding resuming blood thinners hyperammonemia patient slightly confused with encouragement he is AXOX3 will hold off lactulose repeat ammonia in AM re evaluate , if becomes more confused , consider lactulose chronic conditions esophageal cancer with mets to liver afib bilateral pleural effusion , he denies any SOB. consider tapping if he becomes SOB full code DVT PPX mechanical , until GI bleeding ruled out
[2022-05-17] MEDS ORDERED: ONDANSETRON 4 MG/2 ML VIAL IVP PRN (03:13)
[2022-05-17 03:49] LABS: Glucose,Whole Blood 124 mg/dL (70-110)
[2022-05-17] MEDS: oxyCODONE-APAP 7.5-325MG 1 EACH TAB PO PRN ×2 (04:14→13:57)
[2022-05-17] MEDS: PANTOPRAZOLE 40 MG TABLET PO SCH ×2 (06:56→06:59)
[2022-05-17] MEDS: LEVOTHYROXINE 100 MCG TAB PO SCH ×2 (06:56→06:59)
[2022-05-17] MEDS ORDERED: SODIUM CHLORIDE 0.9% 1,000 ML IV SCH (08:15)
--- NOTE | 2022-05-17 08:53 | US ---
EXAMINATION TYPE: US kidneys/renal and bladder DATE OF EXAM: 05/17/2022 COMPARISON: CT abdomen pelvis 04/29/2022 CLINICAL HISTORY: anuric. anuria, known rt renal cyst EXAM MEASUREMENTS: Right Kidney: 14.2 x 7.4 x 8.6 cm Left Kidney: not seen Right Kidney: large cyst obliterates normal renal parenchyma, cyst = 10.8 x 6.6 x 6.3cm Left Kidney: peristalsing bowel obscures view if renal tissue Bladder: internal debris seen ascites noted Large cyst involving the right kidney redemonstrated, appears simple. No definite shadowing calculi. Left kidney is not visualized due to overlying bowel. Internal debris demonstrated within the urinary bladder. IMPRESSION: 1. No hydronephrosis. 2. Large cyst involving the right kidney redemonstrated. 3. Nonvisualization of the left kidney due to overlying bowel gas. 4. Nonspecific internal debris within urinary bladder. Correlate with urinalysis. 5. Small to moderate volume ascites demonstrated.
[2022-05-17 09:36] LABS: Anisocytosis Moderate; Basophils % (A) 0 %; Eosinophils % (A) 0 %; HCT 25.5 % (39.0-53.0); Lymphocytes # (A) 0.2 k/uL (1.0-4.8); Lymphocytes % (A) 5 %; MCH 33.9 pg (25.0-35.0); MCHC 32.4 g/dL (31.0-37.0); Macrocytosis Marked; Mean Platelet Volume 8.9; Monocytes # (A) 0.3 k/uL (0-1.0); Monocytes % (A) 6 %; Neutrophils # (A) 3.9 k/uL (1.3-7.7); Neutrophils % (A) 86 %; Platelet Count 145 k/uL (150-450); Poikilocytosis Slight; RBC 2.43 m/uL (4.30-5.90); RDW 21.9 % (11.5-15.5); WBC 4.5 k/uL (3.8-10.6)
[2022-05-17 09:38] LABS: Albumin 3.4 g/dL (3.5-5.0); Calcium 8.5 mg/dL (8.4-10.2); Potassium 4.4 mmol/L (3.5-5.1); Total Bilirubin 1.3 mg/dL (0.2-1.3); Total Protein 6.1 g/dL (6.3-8.2)
[2022-05-17 09:39] LABS: HGB 8.3 gm/dL (13.0-17.5); MCV 104.7 fL (80.0-100.0)
--- NOTE | 2022-05-17 10:28 | P.PN ---
Subjective Progress Note Date: 05/17/22 Pt has had no UOP per nursing. Receiving blood. Suspect UGIB. Pending Gen surg evaluation. Gen: awake, alert HEENT: normocephalic, atraumatic, good hearing acuity, moist mucous membranes Resp: good air exchange, breathing comfortably with no accessory muscle use CVS: good distal perfusion x 4, GI: soft, NTTP, ND : no SPT, no CVAT, montelongo catheter not present MSK: no pitting edema, no clubbing Neuro: non-focal, moving all extremities Psych: cooperative, euthymic mood Assessment/plan: acute on chronic anemia rule out GI bleeding leukopenia occult blood test positive hold eliquis protonix tranfuse 2 UPRBC supplemental oxygen as needed monitor for any evidence of bleeding await general surgery input Anasarca Anuria obtain echo to r/o HF add BNP f/u BMP, Mg = BUN 64, Cr 1.06 s/p 2U PRBCs repeat UA, ULytes Renal US Acute hypoxemic respiratory failure Repeat CXR today Consideration of lasix pending lab and echo results portal vein thrombosis , recent diagnosis 10 days ago hold eliquis , until GI bleeding ruled out await general surgery input regarding resuming blood thinners hyperammonemia patient slightly confused with encouragement he is AXOX3 will hold off lactulose repeat ammonia in AM re evaluate , if becomes more confused , consider lactulose chronic conditions esophageal cancer with mets to liver afib bilateral pleural effusion , he denies any SOB. consider tapping if he becomes SOB full code DVT PPX mechanical , until GI bleeding ruled out Objective - Vital Signs Vital signs: Vital Signs Temp 97.4 F L 05/17/22 09:09 Pulse 78 05/17/22 09:09 Resp 16 05/17/22 09:10 BP 128/76 05/17/22 09:09 Pulse Ox 96 05/17/22 09:09 FiO2 Intake & Output 05/16/22 05/17/22 05/17/22 18:59 06:59 18:59 Intake Total 310 310 Balance 310 310 Weight 106 kg Intake: Blood Product 310 310 Rc As-1 Unit 0 310 [id number] Rc As-1 Unit 310 [id number] Other: # Voids 0 - Labs CBC & Chem 7: 05/17/22 08:56 05/17/22 08:56 Labs: Abnormal Lab Results - Last 24 Hours (Table) 05/16/22 05/16/22 05/16/22 Range/Units 21:02 21:02 21:02 WBC 3.3 L (3.8-10.6) k/uL RBC 1.41 L (4.30-5.90) m/uL Hgb 5.2 L* D (13.0-17.5) gm/dL Hct 16.3 L* (39.0-53.0) % MCV 115.0 H (80.0-100.0) fL MCH 37.1 H (25.0-35.0) pg RDW 18.4 H (11.5-15.5) % Plt Count (150-450) k/uL Lymphocytes # 0.4 L (1.0-4.8) k/uL Macrocytosis Marked A PT 12.1 H (9.0-12.0) sec INR 1.2 H (<1.2) Chloride 110 H (98-107) mmol/L Carbon Dioxide 21 L (22-30) mmol/L BUN 64 H (9-20) mg/dL Glucose 105 H (74-99) mg/dL POC Glucose (mg/dL) (70-110) mg/dL Ammonia (<30) umol/L Total Protein 6.1 L (6.3-8.2) g/dL Albumin (3.5-5.0) g/dL Crossmatch 05/16/22 05/16/22 05/17/22 Range/Units 21:02 21:14 03:47 WBC (3.8-10.6) k/uL RBC (4.30-5.90) m/uL Hgb (13.0-17.5) gm/dL Hct (39.0-53.0) % MCV (80.0-100.0) fL MCH (25.0-35.0) pg RDW (11.5-15.5) % Plt Count (150-450) k/uL Lymphocytes # (1.0-4.8) k/uL Macrocytosis PT (9.0-12.0) sec INR (<1.2) Chloride (98-107) mmol/L Carbon Dioxide (22-30) mmol/L BUN (9-20) mg/dL Glucose (74-99) mg/dL POC Glucose (mg/dL) 124 H (70-110) mg/dL Ammonia 77 H (<30) umol/L Total Protein (6.3-8.2) g/dL Albumin (3.5-5.0) g/dL Crossmatch See Detail 05/17/22 05/17/22 05/17/22 Range/Units 08:56 08:56 09:00 WBC (3.8-10.6) k/uL RBC 2.43 L (4.30-5.90) m/uL Hgb 8.3 L D (13.0-17.5) gm/dL Hct 25.5 L (39.0-53.0) % MCV 104.7 H D (80.0-100.0) fL MCH (25.0-35.0) pg RDW 21.9 H (11.5-15.5) % Plt Count 145 L (150-450) k/uL Lymphocytes # 0.2 L (1.0-4.8) k/uL Macrocytosis Marked A PT (9.0-12.0) sec INR (<1.2) Chloride 111 H (98-107) mmol/L Carbon Dioxide 21 L (22-30) mmol/L BUN 64 H (9-20) mg/dL Glucose 100 H (74-99) mg/dL POC Glucose (mg/dL) (70-110) mg/dL Ammonia 51 H (<30) umol/L Total Protein 6.1 L (6.3-8.2) g/dL Albumin 3.4 L (3.5-5.0) g/dL Crossmatch
[2022-05-17 11:03] LABS: Appearance,Urine Clear (Clear); Bilirubin,Urine Negative (Negative); Blood,Urine Negative (Negative); Color,Urine Yellow; Glucose,Urine (UA) Negative (Negative); Ketones,Urine Negative (Negative); Leukocyte Esterase,Urine Negative (Negative); Nitrite,Urine Negative (Negative); PH, Urine 5.5 (5.0-8.0); Protein,Urine Negative (Negative); Specific Gravity,Urine 1.022 (1.001-1.035); Urobilinogen,Urine <2.0 mg/dL (<2.0)
[2022-05-17 11:13] LABS: Protein/Creatinine Ratio,Urine 0.071
[2022-05-17 11:14] LABS: Amphetamine Screen,Urine Not Detected (NotDetected); Barbiturate Screen,Urine Not Detected (NotDetected); Benzodiazepines Screen,Urine Not Detected (NotDetected); Cocaine Screen,Urine Not Detected (NotDetected); Methadone Screen, Urine Not Detected (NotDetected); Opiate Screen,Urine Not Detected (NotDetected); Oxycodone Screen, Urine Detected (NotDetected); Phencyclidine Screen,Urine Not Detected (NotDetected); Tricyclic Antidepressant,Urine Not Detected (NotDetected); Urn Cannabinoid Scrn Not Detected (NotDetected)
--- NOTE | 2022-05-17 11:23 | XR ---
EXAMINATION TYPE: XR chest 1V portable DATE OF EXAM: 05/17/2022 11:04 AM COMPARISON: Chest radiographs from 05/16/2022 TECHNIQUE: XR chest 1V portable Frontal view of the chest. CLINICAL INDICATION:Male, 71 years old with history of worsening hypoxia; FINDINGS: Lungs/Pleura: Moderate bilateral pleural effusions with associated atelectasis. Improved aeration of the right lower lung. No pneumothorax. Pulmonary vascularity: Unremarkable. Heart/mediastinum: Cardiomediastinal silhouette is obscured due to overlying and adjacent opacities. Atherosclerotic calcifications are seen in the aorta. Musculoskeletal: No acute osseous pathology. IMPRESSION: Moderate bilateral pleural effusions with associated atelectasis. Improved aeration of the right lowe r lung.
--- NOTE | 2022-05-17 13:07 | P.GSCN ---
History of Present Illness Consult date: 05/17/22 History of present illness: CHIEF COMPLAINT: Weakness HISTORY OF PRESENT ILLNESS: This is a 71-year-old male who has a known history of esophageal cancer with metastases to the liver. He presented to the hospital with complaints of weakness and confusion. History obtained from the chart. Apparently patient needed port placed for chemotherapy. However he has been found to be anemic with a hemoglobin of 5.2. Stool for occult blood was positive. He is Eliquis for A. fib and portal venous thrombus. Patient was found to have bilateral pleural effusions on chest x-ray and is currently on 15 L of oxygen. His been no active signs of bleeding. Patient is receiving 2 units of blood. He denies any abdominal pain. His last colonoscopy was in 2017 which did reveal diverticulosis and colon polyps. EGD was in December 2019 which did reveal the esophageal mass. Surgical consult placed for poor and GI bleed. Patient did have some hypotension on admission. BP has shown improvement since blood transfusion. Patient's urine output has been low. PAST MEDICAL HISTORY: See below PAST SURGICAL HISTORY: See below MEDICATIONS: See below ALLERGIES: See below SOCIAL HISTORY: No illicit drug use. REVIEW OF SYSTEMS: CONSTITUTIONAL: Denies fever or chills. HEENT: Denies blurred vision, vision changes, or eye pain. Denies hemoptysis CARDIOVASCULAR: Denies chest pain or pressure. RESPIRATORY: No shortness of breath. GASTROINTESTINAL: See HPI for pertinent findings HEMATOLOGIC: Denies bleeding disorders. GENITOURINARY: Denies any blood in urine or increased urinary frequency. SKIN: Denies pruitis. Denies rash. PHYSICAL EXAM: VITAL SIGNS: Reviewed GENERAL: Well-developed in no acute distress. HEENT: No sclera icterus. Extraocular movements grossly intact. Moist buccal mucosa. Head is atraumatic, normocephalic. No nasal drainage. ABDOMEN: Soft. Nondistended nontender NEUROLOGIC: Awake. Confused LABORATORY DATA: WBC 3.3-4.5 Hgb 5.2 up to 8.3 after transfusion platelets 145 Sodium is 139 potassium 4.4 creatinine 1.06 Ammonia level 77 down to 51 LFTs normal troponin and normal BNP 1000 60 Stool for occult blood positive Drugs positive for oxycodone alcohol level less than 10 IMAGING: CT scan of brain no acute process Abdominal ultrasound small to moderate volume ascites demonstrated. No hydronephrosis. Large cyst in the right kidney be demonstrated. Nonspecific internal debris within the urinary bladder. Chest x-ray moderate bilateral pleural effusions with atelectasis ASSESSMENT: 1. Anemia with stool for occult blood positive 2. Esophageal cancer with liver metastases 3. Respiratory failure with bilateral pleural effusions PLAN: -Patient scheduled for Mediport placement on 05/20/[address] Loco -Further recommendations regarding endoscopies forthcoming per surgeon -Continue to monitor hemoglobin -Continue to monitor for any signs or symptoms of bleeding -Patient is status post 2 units of blood -Continue to hold Eliquis -Start clear liquid diet -Change PPI to IV Physician Managing Director [employer] note has been reviewed by physician. Signing provider agrees with the documented findings, assessment, and plan of care. I have personally seen and examined the patient, reviewed the NUT THREADER /PAs history, exam and MDM and agree with the assessment and plan as written. Based on total visit time, I have performed more than 50% of the visit. As above: Patient with significant anemia. Etiology unclear but no heavy bleeding described. Recent PET scan shows no activity mentioned in the colon. Continue to hold anticoagulation. Tentatively placed on the schedule for Port-A-Cath placement on Friday if clinically improved. Past Medical History Past Medical History: Cancer, Hypertension Additional Past Medical History / Comment(s): frequent bloating, difficulty swallowing, past hx of HTN, no current medications, esophageal cancer History of Any Multi-Drug Resistant Organisms: None Reported Additional Past Surgical History / Comment(s): JAW RECONSTRUCTION (OVER BITE), colonoscopy Past Anesthesia/Blood Transfusion Reactions: No Reported Reaction Smoking Status: Current some day smoker - Past Family History Mother Family Medical History: Cancer Additional Family Medical History / Comment(s): COLON CANCER Medications and Allergies Home Medications Medication Instructions Recorded Confirmed Type Cholecalciferol (Vitamin D3) 2,000 unit PO BID 06/19/17 05/17/22 History [Vitamin D3] Levothyroxine Sodium [Synthroid] 200 mcg PO DAILY 05/13/22 05/17/22 History Omeprazole 20 mg PO DAILY 05/13/22 05/17/22 History oxyCODONE-APAP 7.5-325MG [Percocet 1 tab PO Q6H PRN 05/13/22 05/17/22 History 7.5-325 mg] Apixaban [Eliquis Starter Pack See Taper PO DIRECTED 05/17/22 05/17/22 History (for VTE)] Allergies Allergy/AdvReac Type Severity Reaction Status Date / Time No Known Allergies Allergy Verified 05/17/22 09:17 Surgical - Exam Vital Signs Pulse Resp BP Pulse Ox 64 16 99/62 94 L 05/16/22 20:28 05/16/22 20:28 05/16/22 20:28 05/16/22 20:28 Results - Labs 05/17/22 08:56 05/17/22 08:56 Abnormal Lab Results - Last 24 Hours (Table) 05/16/22 05/16/22 05/16/22 Range/Units 21:02 21:02 21:02 WBC 3.3 L (3.8-10.6) k/uL RBC 1.41 L (4.30-5.90) m/uL Hgb 5.2 L* D (13.0-17.5) gm/dL Hct 16.3 L* (39.0-53.0) % MCV 115.0 H (80.0-100.0) fL MCH 37.1 H (25.0-35.0) pg RDW 18.4 H (11.5-15.5) % Plt Count (150-450) k/uL Lymphocytes # 0.4 L (1.0-4.8) k/uL Macrocytosis Marked A PT 12.1 H (9.0-12.0) sec INR 1.2 H (<1.2) Chloride 110 H (98-107) mmol/L Carbon Dioxide 21 L (22-30) mmol/L BUN 64 H (9-20) mg/dL Glucose 105 H (74-99) mg/dL POC Glucose (mg/dL) (70-110) mg/dL Ammonia (<30) umol/L Total Protein 6.1 L (6.3-8.2) g/dL Albumin (3.5-5.0) g/dL Crossmatch 05/16/22 05/16/22 05/17/22 Range/Units 21:02 21:14 03:47 WBC (3.8-10.6) k/uL RBC (4.30-5.90) m/uL Hgb (13.0-17.5) gm/dL Hct (39.0-53.0) % MCV (80.0-100.0) fL MCH (25.0-35.0) pg RDW (11.5-15.5) % Plt Count (150-450) k/uL Lymphocytes # (1.0-4.8) k/uL Macrocytosis PT (9.0-12.0) sec INR (<1.2) Chloride (98-107) mmol/L Carbon Dioxide (22-30) mmol/L BUN (9-20) mg/dL Glucose (74-99) mg/dL POC Glucose (mg/dL) 124 H (70-110) mg/dL Ammonia 77 H (<30) umol/L Total Protein (6.3-8.2) g/dL Albumin (3.5-5.0) g/dL Crossmatch See Detail 05/17/22 05/17/22 05/17/22 Range/Units 08:56 08:56 09:00 WBC (3.8-10.6) k/uL RBC 2.43 L (4.30-5.90) m/uL Hgb 8.3 L D (13.0-17.5) gm/dL Hct 25.5 L (39.0-53.0) % MCV 104.7 H D (80.0-100.0) fL MCH (25.0-35.0) pg RDW 21.9 H (11.5-15.5) % Plt Count 145 L (150-450) k/uL Lymphocytes # 0.2 L (1.0-4.8) k/uL Macrocytosis Marked A PT (9.0-12.0) sec INR (<1.2) Chloride 111 H (98-107) mmol/L Carbon Dioxide 21 L (22-30) mmol/L BUN 64 H (9-20) mg/dL Glucose 100 H (74-99) mg/dL POC Glucose (mg/dL) (70-110) mg/dL Ammonia 51 H (<30) umol/L Total Protein 6.1 L (6.3-8.2) g/dL Albumin 3.4 L (3.5-5.0) g/dL Crossmatch Diabetes panel 05/16/22 05/17/22 Range/Units 21:02 08:56 Sodium 140 139 (137-145) mmol/L Potassium 4.1 4.4 (3.5-5.1) mmol/L Chloride 110 H 111 H (98-107) mmol/L Carbon Dioxide 21 L 21 L (22-30) mmol/L BUN 64 H 64 H (9-20) mg/dL Creatinine 1.17 1.06 (0.66-1.25) mg/dL Glucose 105 H 100 H (74-99) mg/dL Calcium 8.8 8.5 (8.4-10.2) mg/dL AST 43 58 (17-59) U/L ALT 31 33 (4-49) U/L Alkaline Phosphatase 46 52 (38-126) U/L Total Protein 6.1 L 6.1 L (6.3-8.2) g/dL Albumin 3.5 3.4 L (3.5-5.0) g/dL Calcium panel 05/16/22 05/17/22 Range/Units 21:02 08:56 Calcium 8.8 8.5 (8.4-10.2) mg/dL Albumin 3.5 3.4 L (3.5-5.0) g/dL Pituitary panel 05/16/22 05/17/22 Range/Units 21:02 08:56 Sodium 140 139 (137-145) mmol/L Potassium 4.1 4.4 (3.5-5.1) mmol/L Chloride 110 H 111 H (98-107) mmol/L Carbon Dioxide 21 L 21 L (22-30) mmol/L BUN 64 H 64 H (9-20) mg/dL Creatinine 1.17 1.06 (0.66-1.25) mg/dL Glucose 105 H 100 H (74-99) mg/dL Calcium 8.8 8.5 (8.4-10.2) mg/dL Adrenal panel 05/16/22 05/17/22 Range/Units 21:02 08:56 Sodium 140 139 (137-145) mmol/L Potassium 4.1 4.4 (3.5-5.1) mmol/L Chloride 110 H 111 H (98-107) mmol/L Carbon Dioxide 21 L 21 L (22-30) mmol/L BUN 64 H 64 H (9-20) mg/dL Creatinine 1.17 1.06 (0.66-1.25) mg/dL Glucose 105 H 100 H (74-99) mg/dL Calcium 8.8 8.5 (8.4-10.2) mg/dL Total Bilirubin 0.4 1.3 (0.2-1.3) mg/dL AST 43 58 (17-59) U/L ALT 31 33 (4-49) U/L Alkaline Phosphatase 46 52 (38-126) U/L Total Protein 6.1 L 6.1 L (6.3-8.2) g/dL Albumin 3.5 3.4 L (3.5-5.0) g/dL
[2022-05-17] MEDS ORDERED: PANTOPRAZOLE 40 MG/10 ML VIAL IVP SCH (13:15)
[2022-05-17] MEDS ORDERED: HALOPERIDOL LACTATE 5 MG/ML 1 ML VIAL IVP PRN (17:47)
[2022-05-17] MEDS ORDERED: FUROSEMIDE 40 MG TAB PO STA (17:53)
[2022-05-17 19:00] LABS: Anisocytosis Moderate; HCT 24.3 % (39.0-53.0); HGB 8.1 gm/dL (13.0-17.5); MCH 34.2 pg (25.0-35.0); MCHC 33.2 g/dL (31.0-37.0); MCV 103.3 fL (80.0-100.0); Macrocytosis Marked; Mean Platelet Volume 9.2; Platelet Count 143 k/uL (150-450); Poikilocytosis Slight; RBC 2.35 m/uL (4.30-5.90); RDW 22.7 % (11.5-15.5); WBC 4.9 k/uL (3.8-10.6)
[2022-05-17] MEDS: IPRATROPIUM-ALBUTEROL 3 ML NEB INHALATION PRN ×2 (19:18→21:31)
[2022-05-17 19:27] LABS: ABG HCO3 22 mmol/L (21-25); ABG Oxygen Saturation 92.2 % (94-97); ABG PCO2 34 mmHg (35-45); ABG PH 7.41 (7.35-7.45); ABG PO2 64 mmHg (83-108); ABG TCO2 23 mmol/L (19-24); Allen Test Performed? Yes
--- NOTE | 2022-05-17 19:38 | XR ---
EXAMINATION TYPE: XR chest 1V portable DATE OF EXAM: 05/17/2022 COMPARISON: 05/17/2022 HISTORY: Hypoxemia TECHNIQUE: FINDINGS: Heart is enlarged. There is large bilateral pleural effusions. There is pulmonary vascular congestion and pulmonary edema. There are chest leads. IMPRESSION: Congestive heart failure with large pleural effusions. Pleural fluid and edema are increa sed compared to exam earlier today.
[2022-05-17] MEDS ORDERED: FUROSEMIDE 10 MG/ML 10 ML VIAL IV STA (20:33)
[2022-05-17 21:22] LABS: Glucose,Whole Blood 133 mg/dL (70-110)
[2022-05-17] MEDS: PANTOPRAZOLE 40 MG/10 ML VIAL IVP SCH (22:58)
[2022-05-17 23:56] LABS: Anisocytosis Moderate; HCT 25.7 % (39.0-53.0); HGB 8.4 gm/dL (13.0-17.5); MCH 33.9 pg (25.0-35.0); MCHC 32.8 g/dL (31.0-37.0); MCV 103.5 fL (80.0-100.0); Macrocytosis Marked; Mean Platelet Volume 9.3; Platelet Count 147 k/uL (150-450); Poikilocytosis Slight; RBC 2.48 m/uL (4.30-5.90); RDW 22.8 % (11.5-15.5)
[2022-05-18] MEDS: IPRATROPIUM-ALBUTEROL 3 ML NEB INHALATION PRN ×2 (00:15→15:54)
[2022-05-18 01:17] LABS: Glucose,Whole Blood 137 mg/dL (70-110)
[2022-05-18] MEDS ORDERED: propofoL 100 ML IV ONE (01:26)
[2022-05-18] MEDS ORDERED: SODIUM CHLORIDE 0.9% 2,000 ML IV ONE (01:48)
--- NOTE | 2022-05-18 02:03 | XR ---
EXAMINATION TYPE: XR chest 1V portable DATE OF EXAM: 05/18/2022 COMPARISON: 05/17/2022 HISTORY: Hypoxemia. Tube placement. TECHNIQUE: FINDINGS: The endotracheal tube is 6 cm from the leighton. Moderate bilateral pleural effusions. There is pulmonary vascular congestion. There are chest leads. There is nasogastric tube in the stomach. IMPRESSION: Moderate bilateral pleural effusions and likely congestive heart failure. Tubing in good position. Pleural fluid not significantly different than yesterday.
[2022-05-18] MEDS: NOREPINEPHRINE 4 MG in SODIUM CHLORIDE 0.9% 250 ML IV SCH ×2 (02:05→07:19)
--- NOTE | 2022-05-18 03:35 | P.EN ---
Notified by the RN regarding the patient's gradually worsening respiratory status. The patient was seen at the bedside and was noted to have worsening tachypnea and appeared to be more respiratory distress. Rales were appreciated throughout, and Lasix was subsequently ordered in setting of suspected CHF with anasarca and elevated proBNP. ABG was obtained and reviewed. The patient made roughly 1.1 L of urine but continued to have respiratory distress, for which case was discussed with ICU charge nurse who contacted motors assembler staff electronic warfare officer. He recommended transfer to MICU and intubation. The patient's CODE STATUS was discussed with family who again reiterated full code. The patient was transferred to the medical ICU where he was intubated and placed on mechanical ventilation.
[2022-05-18 05:49] LABS: ABG Base Excess -1.8 mmol/L; ABG HCO3 21 mmol/L (21-25); ABG PCO2 26 mmHg (35-45); ABG PH 7.51 (7.35-7.45); ABG PO2 251 mmHg (83-108); ABG TCO2 22 mmol/L (19-24); Allen Test Performed? Yes
[2022-05-18 06:16] LABS: Anisocytosis Moderate; Basophils % (A) 0 %; Eosinophils % (A) 0 %; HCT 23.4 % (39.0-53.0); Lymphocytes # (A) 0.2 k/uL (1.0-4.8); Lymphocytes % (A) 6 %; MCH 34.5 pg (25.0-35.0); MCHC 33.9 g/dL (31.0-37.0); MCV 101.7 fL (80.0-100.0); Macrocytosis Moderate; Mean Platelet Volume 9.2; Monocytes # (A) 0.4 k/uL (0-1.0); Monocytes % (A) 10 %; Neutrophils # (A) 2.9 k/uL (1.3-7.7); Neutrophils % (A) 80 %; Platelet Count 133 k/uL (150-450); Poikilocytosis Slight; RBC 2.31 m/uL (4.30-5.90); RDW 22.3 % (11.5-15.5); WBC 3.7 k/uL (3.8-10.6)
[2022-05-18 06:48] LABS: Potassium 3.7 mmol/L (3.5-5.1)
[2022-05-18] MEDS: LEVOTHYROXINE 100 MCG TAB PO SCH (06:48)
[2022-05-18 06:59] LABS: Glucose,Whole Blood 130 mg/dL (70-110)
[2022-05-18] MEDS ORDERED: Potassium Replacement Protocol 1 EACH MISC MISCELLANE PRN (07:59)
[2022-05-18] MEDS ORDERED: POTASSIUM BICARBONATE/CIT AC 20 MEQ TABLET.EFF NG-TUBE SCH (08:00)
[2022-05-18] MEDS: VASOPRESSIN 20 UNIT in SODIUM CHLORIDE 0.9% 50 ML IV SCH ×2 (08:06→15:21)
--- NOTE | 2022-05-18 09:11 | US ---
EXAMINATION TYPE: US chest DATE OF EXAM: 05/18/2022 COMPARISON: XR CLINICAL HISTORY: Markings for thoracentesis by pulmonary staff. Pleural effusions. TECHNIQUE: Targeted ultrasound of the posterior lower bilateral hemithoraces EXAM MEASUREMENTS: Right Pleural Effusion pocket size: 11.4 cm Right skin surface to fluid distance: 1.9 cm Left Pleural Effusion pocket size: Fluid appears to have echoes/debris within. 9.6 cm Left skin surface to fluid distance: 2.0 cm Right side marked for possible thoracentesis outside the dept. Left side marked for possible thoracentesis outside the dept. Internal echoes seen within left post erior chest fluid. Pulmonologists are able to review the images in the patient?s EMR. IMPRESSIONS: Bilateral pleural effusions with internal debris suggests on the left.
[2022-05-18] MEDS: PANTOPRAZOLE 40 MG/10 ML VIAL IVP SCH ×2 (09:35→21:05)
[2022-05-18] MEDS: CHLORHEXIDINE GLUCONATE 15 ML CUP MUCOUS MEM SCH ×2 (09:35→21:06)
--- NOTE | 2022-05-18 09:50 | CA ---
Transthoracic Echo Report Name: Jose De La Rosa Age: 71 Gender: M : 1950 Exam Date: 05/17/2022 10:56 Exam Location: [place] [facility] Ht (in): 65 Wt (lb): 255 Ordering Physician: Renato Solis MD Attending/Referring Phys: Lna Yadi Warner RDCS Procedure CPT: Indications: anasarca Cardiac Hx: Technical Quality: Contrast 1: Total Dose (mL): Contrast 2: Total Dose (mL): MEASUREMENTS (Male / Female) Normal Values 2D ECHO LV Diastolic Diameter PLAX 3.8 cm 4.2 - 5.9 / 3.9 - 5.3 cm LV Systolic Diameter PLAX 3.3 cm IVS Diastolic Thickness 0.7 cm 0.6 - 1.0 / 0.6 - 0.9 cm LVPW Diastolic Thickness 1.7 cm 0.6 - 1.0 / 0.6 - 0.9 cm LV Relative Wall Thickness 0.6 RV Internal Dim ED PLAX 2.6 cm LA Systolic Diameter LX 3.6 cm 3.0 - 4.0 / 2.7 - 3.8 cm LV Diastolic Volume MOD BP 71.4 cm??? 67 - 155 / 56 - 104 cm??? LV Systolic Volume MOD BP 36.1 cm??? 22 - 58 / 19 - 49 cm??? LV Ejection Fraction MOD BP 49.4 % >= 55 % LV Diastolic Volume MOD 4C 65.9 cm??? LV Systolic Volume MOD 4C 30.0 cm??? LV Ejection Fraction MOD 4C 54.5 % LV Diastolic Length 4C 6.9 cm LV Systolic Length 4C 6.1 cm LV Diastolic Volume MOD 2C 72.2 cm??? LV Systolic Volume MOD 2C 41.2 cm??? LV Ejection Fraction MOD 2C 42.9 % LV Diastolic Length 2C 7.4 cm LV Systolic Length 2C 6.5 cm LA Volume 49.1 cm??? 18 - 58 / 22 - 52 cm??? M-MODE Aortic Root Diameter MM 3.5 cm MV E Point Septal Separation 0.8 cm AV Cusp Separation MM 1.6 cm DOPPLER MV E' Velocity 6.5 cm/s TR Peak Velocity 251.4 cm/s TR Peak Gradient 25.3 mmHg Right Ventricular Systolic Press 30.1 mmHg FINDINGS Left Ventricle Left ventricular ejection fraction is estimated at 55 %. Left ventricular cavity size normal. Right Ventricle Normal right ventricular size and function. Right ventricular systolic pressure within normal limits. Right Atrium Normal right atrial size. Left Atrium Left atrial size at the upper limits of normal. Mitral Valve Structurally normal mitral valve. Mild mitral regurgitation. Aortic Valve Trileaflet aortic valve. Tricuspid Valve Structurally normal tricuspid valve. Mild tricuspid regurgitation. Pulmonic Valve Structurally normal pulmonic valve. Pericardium Small Pericardial Effusion: Large pleural effusion. Aorta Normal size aortic root and proximal ascending aorta. CONCLUSIONS Normal left ventricular size and systolic function Small pericardial effusion Mild mitral regurgitation Previewed by: Dr. Russell Fraga MD (Electronically Signed) Final Date: 18 May 2022 09:49
--- NOTE | 2022-05-18 10:02 | XR ---
EXAMINATION TYPE: XR chest 1V portable DATE OF EXAM: 05/18/2022 9:38 AM COMPARISON: Chest radiographs from same day. TECHNIQUE: XR chest 1V portable 1V portable. CLINICAL INDICATION:Male, 71 years old with history of Post Thoracentesis CVC placement; FINDINGS: Lungs/Pleura: There is no evidence of focal consolidation, or pneumothorax. Bilateral pleural effusi ons. Pulmonary vascularity: Unremarkable. Heart/mediastinum: Cardiomediastinal silhouette is unremarkable. Musculoskeletal: No acute osseous pathology. Lines/Tubes: Endotracheal tube with distal tip 7.5 cm above the leighton. Nasogastric tube with its distal tip and side-port projecting under the diaphragm. Right internal jugular central venous catheter with distal tip at the cavoatrial junction. IMPRESSION: 1. Decrease in bilateral pleural effusions which could be partially due to patient positioning and/o r thoracentesis. Persistent bilateral pleural effusions. 2. Right IJ centimeters catheter with tip in appropriate position. No pneumothorax.
--- NOTE | 2022-05-18 10:25 | P.PN ---
Subjective Progress Note Date: 05/18/22 Pt had A-team last night due to worsening respiratory failure. Appeared to be in HF secondary to BNP elevation and wet CXR (reviewed by me). Rec'd 80mg IV lasix, but became hypotensive, and transferred to the ICU and intubated overnight. Case discussed with the intensitivist today, plan is for central line, A-line, thoracentesis of the right pleural effusion. Strong suspicion of malignant effusion versus HF. General: intubated, sedated HEENT: normocephalic, atraumatic, no tracheal deviation Respiratory: symmetric chest rise, no cyanosis, ventilator dependent CVS: perfusing all extremities, no distal gangrene, + pitting edema GI: soft, ND : no SPT, no CVAT, montelongo is present Neuro: sedated Assessment/plan: Acute on chronic anemia rule out GI bleeding leukopenia occult blood test positive hold eliquis protonix tranfuse 2 UPRBC supplemental oxygen as needed monitor for any evidence of bleeding await general surgery input Anasarca Pleural Effusions, bilateral Anuria obtain echo to r/o HF shows EF of 55%, RVSP within normal limits add BNP = elevated to 1500+ f/u BMP, Mg = BUN 64, Cr 1.06 s/p 2U PRBCs repeat UA is clear, Lisa < 20, FENa is 0.2% - concerning for prerenal etiology Renal US without hydronephrosis Acute hypoxemic respiratory failure Bilateral Pleural effusions -discussed case with pulmonology, plan is for thoracentesis today, high suspicion of malignant effusion -Echo report reviewed, EF preserved at 55%, no elevation of RVSP portal vein thrombosis , recent diagnosis 10 days ago hold eliquis , until GI bleeding ruled out await general surgery input regarding resuming blood thinners hyperammonemia patient slightly confused with encouragement he is AXOX3 will hold off lactulose repeat ammonia in AM re evaluate , if becomes more confused , consider lactulose chronic conditions esophageal cancer with mets to liver, consulting oncology to discuss possibility of treatment options, though patient is not stable enough to have chemo and too fragile without significant improvement with rehab if he gets to that point, patient has very poor prognosis. GoC discussion with pending thoracentesis, patient more likely hospice candidate. Paroysmal afib full code DVT PPX mechanical , until GI bleeding ruled out Objective - Vital Signs Vital signs: Vital Signs Temp 98.9 F 05/18/22 08:00 Pulse 45 L 05/18/22 09:00 Resp 20 05/18/22 09:00 BP 92/66 05/18/22 09:00 Pulse Ox 70 L 05/18/22 09:00 FiO2 50 05/18/22 08:02 Intake & Output 05/17/22 05/18/22 05/18/22 18:59 06:59 18:59 Intake Total 310 2375.297 83.703 Output Total 375 3420 3205 Balance -65 -1044.703 -3121.297 Weight 106 kg 70.5 kg Intake: IV 2075 30 Sodium Chloride 0.9% 1, 75 30 000 ml @ 75 mls/hr IV . [id number] [facility] Rx#:[id number] Sodium Chloride 0.9% 2, 2000 000 ml @ 999 mls/hr IV . Q2H1M ONE Rx#:[id number] Intake, IV Titration 300.297 53.703 Amount Norepinephrine 4 mg In 249.788 4.212 Sodium Chloride 0.9% 250 ml @ 0.03 MCG/KG/MIN 12. 116 mls/hr IV .[id number] [facility] Rx#:[id number] propofoL 1,000 mg In 50.509 49.491 Empty Bag 1 bag @ 15 MCG/ KG/MIN 9.54 mls/hr IV . [id number] [facility] Rx#:[id number] Blood Product 310 Rc As-1 Unit 310 [id number] Output: Drainage 2800 Right Chest 2800 Urine 375 3420 405 Other: Voiding Method Indwelling Catheter # Voids 1 - Labs CBC & Chem 7: 05/18/22 06:07 05/18/22 06:07 Labs: Abnormal Lab Results - Last 24 Hours (Table) 05/17/22 05/17/22 05/17/22 Range/Units 10:00 10:44 18:33 WBC (3.8-10.6) k/uL RBC 2.35 L (4.30-5.90) m/uL Hgb 8.1 L (13.0-17.5) gm/dL Hct 24.3 L (39.0-53.0) % MCV 103.3 H (80.0-100.0) fL RDW 22.7 H (11.5-15.5) % Plt Count 143 L (150-450) k/uL Lymphocytes # (1.0-4.8) k/uL Macrocytosis Marked A ABG pH (7.35-7.45) ABG pCO2 (35-45) mmHg ABG pO2 (83-108) mmHg ABG O2 Saturation (94-97) % Chloride (98-107) mmol/L Carbon Dioxide (22-30) mmol/L BUN (9-20) mg/dL Glucose (74-99) mg/dL POC Glucose (mg/dL) (70-110) mg/dL Calcium (8.4-10.2) mg/dL Ammonia (<30) umol/L Ur Random Sodium <20 L (40-220) mmol/L Ur Oxycodone Screen Detected H (NotDetected) 05/17/22 05/17/22 05/17/22 Range/Units 19:18 21:19 23:20 WBC (3.8-10.6) k/uL RBC 2.48 L (4.30-5.90) m/uL Hgb 8.4 L (13.0-17.5) gm/dL Hct 25.7 L (39.0-53.0) % MCV 103.5 H (80.0-100.0) fL RDW 22.8 H (11.5-15.5) % Plt Count 147 L (150-450) k/uL Lymphocytes # (1.0-4.8) k/uL Macrocytosis Marked A ABG pH (7.35-7.45) ABG pCO2 34 L (35-45) mmHg ABG pO2 64 L (83-108) mmHg ABG O2 Saturation 92.2 L (94-97) % Chloride (98-107) mmol/L Carbon Dioxide (22-30) mmol/L BUN (9-20) mg/dL Glucose (74-99) mg/dL POC Glucose (mg/dL) 133 H (70-110) mg/dL Calcium (8.4-10.2) mg/dL Ammonia (<30) umol/L Ur Random Sodium (40-220) mmol/L Ur Oxycodone Screen (NotDetected) 05/18/22 05/18/22 05/18/22 Range/Units 01:16 05:48 06:07 WBC 3.7 L (3.8-10.6) k/uL RBC 2.31 L (4.30-5.90) m/uL Hgb 8.0 L (13.0-17.5) gm/dL Hct 23.4 L (39.0-53.0) % MCV 101.7 H (80.0-100.0) fL RDW 22.3 H (11.5-15.5) % Plt Count 133 L (150-450) k/uL Lymphocytes # 0.2 L (1.0-4.8) k/uL Macrocytosis ABG pH 7.51 H (7.35-7.45) ABG pCO2 26 L (35-45) mmHg ABG pO2 251 H (83-108) mmHg ABG O2 Saturation 100.0 H (94-97) % Chloride (98-107) mmol/L Carbon Dioxide (22-30) mmol/L BUN (9-20) mg/dL Glucose (74-99) mg/dL POC Glucose (mg/dL) 137 H (70-110) mg/dL Calcium (8.4-10.2) mg/dL Ammonia (<30) umol/L Ur Random Sodium (40-220) mmol/L Ur Oxycodone Screen (NotDetected) 05/18/22 05/18/22 05/18/22 Range/Units 06:07 06:07 06:57 WBC (3.8-10.6) k/uL RBC (4.30-5.90) m/uL Hgb (13.0-17.5) gm/dL Hct (39.0-53.0) % MCV (80.0-100.0) fL RDW (11.5-15.5) % Plt Count (150-450) k/uL Lymphocytes # (1.0-4.8) k/uL Macrocytosis ABG pH (7.35-7.45) ABG pCO2 (35-45) mmHg ABG pO2 (83-108) mmHg ABG O2 Saturation (94-97) % Chloride 112 H (98-107) mmol/L Carbon Dioxide 20 L (22-30) mmol/L BUN 69 H (9-20) mg/dL Glucose 121 H (74-99) mg/dL POC Glucose (mg/dL) 130 H (70-110) mg/dL Calcium 8.0 L (8.4-10.2) mg/dL Ammonia 158 H (<30) umol/L Ur Random Sodium (40-220) mmol/L Ur Oxycodone Screen (NotDetected) Microbiology - Last 24 Hours (Table) 05/16/22 21:02 Blood Culture - Preliminary Blood No Growth after 24 hours
[2022-05-18 10:41] LABS: Appearance,Urine Clear (Clear); Bilirubin,Urine Negative (Negative); Blood,Urine Negative (Negative); Color,Urine Light Yellow; Glucose,Urine (UA) Negative (Negative); Hyaline Casts,Urine 51 /lpf (0-2); Ketones,Urine Negative (Negative); Leukocyte Esterase,Urine Large (Negative); Mucus,Urine Rare /hpf; Nitrite,Urine Negative (Negative); Protein,Urine Negative (Negative); RBC,Urine 5 /hpf (0-5); Specific Gravity,Urine 1.011 (1.001-1.035); Squamous Epithelial Cell,Urine <1 /hpf (0-4); Urobilinogen,Urine <2.0 mg/dL (<2.0); WBC,Urine 46 /hpf (0-5)
--- NOTE | 2022-05-18 10:42 | P.PN ---
Progress Note - Text Progress Note Date: 05/18/22 Patient remains stable. There is no acute changes. He will have a Port-A-Cath placed Friday with Dr. Mitchell.
[2022-05-18] MEDS: LACTATED RINGERS 1,000 ML IV SCH ×6 (11:05→21:06)
[2022-05-18] MEDS: NOREPINEPHRINE 8 MG in SODIUM CHLORIDE 0.9% 250 ML IV SCH ×2 (11:26→21:07)
--- NOTE | 2022-05-18 11:39 | OP ---
OPERATIVE REPORT PROCEDURE PERFORMED: Right-sided thoracentesis. PREOPERATIVE DIAGNOSIS: Bilateral pleural effusions, right more so than left. POSTOPERATIVE DIAGNOSIS: Bilateral pleural effusions, right more so than left. ANESTHESIA USED: 2 mL of 1% lidocaine. DESCRIPTION OF PROCEDURE: The patient was placed in a sitting upright position, and the area below the right scapula was prepared in a sterile fashion, and drapes were applied. The area of the fluid was earlier localized by ultrasound, and it correlated to the 7th intercostal space and tip of the scapula. The area was locally anesthetized with lidocaine. Then, a 26-gauge needle was inserted at that site and advanced into the pleural space until the fluid was localized. Then, a small tiny incision was made, and an 8-Turkmen catheter/thoracentesis catheter and needle were used. The needle was advanced in through the same site into the pleural space. Fluid was obtained, and the catheter was advanced over the needle into the pleural space. Freely flowing fluid was removed. Roughly 2.9 L of fluid was removed from the pleural space. The fluid was slightly yellow/kwasi in color, and it was sent for different diagnostic studies. Postoperatively, chest x-ray showed no evidence of complications, and no evidence of pneumothorax. MMODL / IJN: [id number] /
--- NOTE | 2022-05-18 11:42 | OP ---
OPERATIVE REPORT PROCEDURE PERFORMED: Placement of a left brachial arterial line. PREOPERATIVE DIAGNOSES: Acute hypoxic respiratory failure and hypotension. POSTOPERATIVE DIAGNOSES: Acute hypoxic respiratory failure and hypotension. ANESTHESIA USED: None deployed. DESCRIPTION OF PROCEDURE: The left brachial region was prepared in a sterile fashion, and drapes were applied. The left brachial artery was palpated, cannulated easily, and a guidewire was placed. A Cook catheter was inserted over the guidewire, and the guidewire was removed. Good blood flow, good waveform. No complication. Line was secured using 3-0 silk sutures. MMODL / IJN: [id number] /
--- NOTE | 2022-05-18 11:54 | OP ---
OPERATIVE REPORT PROCEDURE PERFORMED: Placement of the right internal jugular triple-lumen catheter. PREOPERATIVE DIAGNOSIS: Acute hypoxic respiratory failure. POSTOPERATIVE DIAGNOSIS: Acute hypoxic respiratory failure. ANESTHESIA USED: 2 mL of 1% lidocaine. DESCRIPTION OF PROCEDURE: The patient was placed in the Trendelenburg position, and the area behind the posterior belly of the sternocleidomastoid was prepared in a sterile fashion, and drapes were applied. At the site of the posterior belly of the sternocleidomastoid, using the posterior approach, the area was initially anesthetized with lidocaine, and then a needle was inserted using the posterior approach until the right internal jugular vein was accessed. It was cannulated easily, a guidewire was placed, and a triple-lumen catheter was inserted over the guidewire, and the guidewire was removed. Good blood flow noted in the 3 different ports of the triple-lumen catheter. No complications. Chest x-ray showed adequate placement of the line without complications. MMODL / IJN: [id number] /
[2022-05-18 12:10] LABS: Glucose,Whole Blood 123 mg/dL (70-110)
[2022-05-18 12:13] LABS: Anisocytosis Moderate; HCT 20.7 % (39.0-53.0); HGB 7.1 gm/dL (13.0-17.5); MCH 35.1 pg (25.0-35.0); MCHC 34.4 g/dL (31.0-37.0); MCV 102.2 fL (80.0-100.0); Macrocytosis Marked; Mean Platelet Volume 10.1; Platelet Count 122 k/uL (150-450); Poikilocytosis Slight; RBC 2.02 m/uL (4.30-5.90); RDW 22.8 % (11.5-15.5)
[2022-05-18 12:37] LABS: WBC 1.4 k/uL (3.8-10.6)
--- NOTE | 2022-05-18 13:08 | P.CNPUL ---
History of Present Illness Consult date: 05/18/22 Requesting physician: Anum Calvin Reason for consult: other (acute hypoxic respiratory failure) Chief complaint: generalized weakness and tiredness. Feels cold all the time. History of present illness: this is a 71-year-old white male with known history of esophageal cancer,with metastasis to the liver. Patient presented to the hospital 2 days ago with mostly symptoms of weakness and confusion. Patient was found to have anemia with a hemoglobin of 5.2, he also had positive occult stools, patient was on eliquis for atrial fibrillation and portal vein thrombosis which was diagnosed r ecently. Patient was found to have bilateral pleural effusions, he required relatively high FiO2, he was on 15 L of oxygen on the floor. Patient is also known to have history of diverticulosis noted on colonoscopy in 2018, he also had colonic polyps. EGD in December of 2019 showed evidence of esophageal cancer. Patient was doing poorly last night on the floor, he was getting more and more shortness of breath, more confused, and I recommended immediate transfer the patient to the ICU. Shortly after he arrived to the ICU, patient was intubated and mechanically ventilated. His initial ventilator settings were assist control rate of 2010 volume 450 FiO2 of 50% and PEEP of 5. ABG this morning showed a pO2 of 251 pCO2 of 26 pH of 7.51, patient is maintained on vasopressin at 0.03 units, is also on norepinephrine at 0.18 mcg/kg/m. Maintained on 0.9 normal saline at KVO and propofol at 25 mcg/kg/m. Remains relatively hypotensive, hence I recommended more fluids to be given, after reviewing the chest x-ray on the ultrasound of the chest, I went ahead and performed a right- sided thoracentesis on the patient, and I was able to drain 2.9 L of fluid. Patient underwent also a central line placement, arterial line placement, and he is to be started on enteral feeding/tube feeding. CVP was noted to be extremely low, hence more fluids will be given. In the meantime we'll adjust his ve ntilator settings accordingly.the fluid I drained from the right pleural space was sent for different diagnostic studies.CBC this morning showed evidence of low blood count, WBC count is 1.4, hemoglobin is 7.1, and his platelets are low at 05[birth year]24/1999. Patient clearly has a picture of pancytopenia. I will empirically place the patient on antibiotics,his urinalysis is showing evidence of pyuria and bacteriuria, and elevated glucoside esterase. Review of Systems ROS unobtainable: due to endotracheal tube Past Medical History Past Medical History: Cancer, Hypertension Additional Past Medical History / Comment(s): frequent bloating, difficulty swallowing, past hx of HTN, no current medications, esophageal cancer History of Any Multi-Drug Resistant Organisms: None Reported Additional Past Surgical History / Comment(s): JAW RECONSTRUCTION (OVER BITE), colonoscopy Past Anesthesia/Blood Transfusion Reactions: No Reported Reaction Smoking Status: Current some day smoker - Past Family History Mother Family Medical History: Cancer Additional Family Medical History / Comment(s): COLON CANCER Medications and Allergies Home Medications Medication Instructions Recorded Confirmed Type Cholecalciferol (Vitamin D3) 2,000 unit PO BID 06/19/17 05/17/22 History [Vitamin D3] Levothyroxine Sodium [Synthroid] 200 mcg PO DAILY 05/13/22 05/17/22 History Omeprazole 20 mg PO DAILY 05/13/22 05/17/22 History oxyCODONE-APAP 7.5-325MG [Percocet 1 tab PO Q6H PRN 05/13/22 05/17/22 History 7.5-325 mg] Apixaban [Eliquis Starter Pack See Taper PO DIRECTED 05/17/22 05/17/22 History (for VTE)] Allergies Allergy/AdvReac Type Severity Reaction Status Date / Time No Known Allergies Allergy Verified 05/17/22 09:17 Physical Exam Vitals: Vital Signs Temp Pulse Pulse Resp BP BP Pulse Ox 05/18/22 11:15 43 L 20 100 05/18/22 11:00 40 L 20 100 05/18/22 10:45 41 L 20 98/62 100 05/18/22 10:30 42 L 20 100 05/18/22 10:15 48 L 20 98 05/18/22 10:00 45 L 20 98 05/18/22 09:45 46 L 20 99 05/18/22 09:30 48 L 20 96 05/18/22 09:15 45 L 20 99 05/18/22 09:00 45 L 20 92/66 70 L 05/18/22 08:50 51 L 20 92/66 95 05/18/22 08:40 48 L 20 93/55 99 05/18/22 08:30 47 L 20 80/54 100 05/18/22 08:20 51 L 20 80/54 99 05/18/22 08:10 55 L 20 85/61 05/18/22 08:02 05/18/22 08:00 98.9 F 53 L 20 88/65 94 L 05/18/22 07:50 54 L 20 90/54 95 05/18/22 07:40 54 L 20 88/61 95 05/18/22 07:30 54 L 20 84/62 98 05/18/22 07:20 54 L 20 84/60 91 L 05/18/22 07:10 54 L 20 81/62 97 05/18/22 07:00 53 L 20 81/56 05/18/22 06:50 55 L 20 76/58 05/18/22 06:40 54 L 20 77/55 05/18/22 06:30 54 L 20 80/56 05/18/22 06:20 56 L 20 83/54 05/18/22 06:10 54 L 20 70/54 98 05/18/22 06:00 56 L 20 82/46 100 05/18/22 05:52 05/18/22 05:50 53 L 20 93 L 05/18/22 05:40 56 L 20 84/62 05/18/22 05:30 57 L 20 86/50 94 L 05/18/22 05:20 52 L 20 88/51 05/18/22 05:10 55 L 20 81/65 94 L 05/18/22 05:00 56 L 20 80/56 96 05/18/22 04:50 56 L 20 77/54 95 05/18/22 04:40 59 L 20 77/55 05/18/22 04:30 63 20 77/59 94 L 05/18/22 04:20 63 20 77/55 05/18/22 04:10 65 20 70/52 05/18/22 04:00 65 20 72/52 100 05/18/22 03:51 05/18/22 03:50 67 20 76/54 05/18/22 03:40 67 20 76/53 05/18/22 03:30 64 20 80/56 05/18/22 03:20 69 20 85/63 05/18/22 03:10 71 20 73/55 05/18/22 03:00 97.2 F L 68 20 70/53 05/18/22 02:50 68 20 05/18/22 02:40 71 20 81/63 05/18/22 02:30 75 20 80/61 05/18/22 02:20 87 20 54/41 05/18/22 02:10 89 20 68/54 05/18/22 02:00 97.3 F L 92 20 66/47 98 05/18/22 01:50 93 20 70/56 05/18/22 01:44 05/18/22 01:40 94 20 74/56 97 05/18/22 01:39 05/18/22 01:30 96 20 105/80 100 05/18/22 00:54 91/52 05/18/22 00:45 90/51 05/18/22 00:42 91/53 05/18/22 00:40 78/47 05/18/22 00:38 99 05/18/22 00:28 84 05/18/22 00:25 22 86/52 100 05/18/22 00:16 103 H 05/17/22 23:31 96.7 F L 95 24 130/87 96 05/17/22 21:41 98 05/17/22 21:31 84 05/17/22 21:03 78 24 138/83 96 05/17/22 19:50 96 F L 78 22 138/88 97 05/17/22 19:42 95 05/17/22 19:25 72 05/17/22 15:55 97.5 F L 86 16 108/78 97 FiO2 05/18/22 11:15 05/18/22 11:00 05/18/22 10:45 05/18/22 10:30 05/18/22 10:15 05/18/22 10:00 05/18/22 09:45 05/18/22 09:30 05/18/22 09:15 05/18/22 09:00 05/18/22 08:50 05/18/22 08:40 05/18/22 08:30 05/18/22 08:20 05/18/22 08:10 05/18/22 08:02 50 05/18/22 08:00 50 05/18/22 07:50 05/18/22 07:40 05/18/22 07:30 05/18/22 07:20 05/18/22 07:10 05/18/22 07:00 05/18/22 06:50 05/18/22 06:40 05/18/22 06:30 05/18/22 06:20 05/18/22 06:10 05/18/22 06:00 05/18/22 05:52 50 05/18/22 05:50 05/18/22 05:40 05/18/22 05:30 05/18/22 05:20 05/18/22 05:10 05/18/22 05:00 05/18/22 04:50 80 05/18/22 04:40 05/18/22 04:30 05/18/22 04:20 05/18/22 04:10 05/18/22 04:00 80 05/18/22 03:51 80 05/18/22 03:50 05/18/22 03:40 05/18/22 03:30 05/18/22 03:20 05/18/22 03:10 05/18/22 03:00 05/18/22 02:50 05/18/22 02:40 05/18/22 02:30 05/18/22 02:20 05/18/22 02:10 05/18/22 02:00 100 05/18/22 01:50 05/18/22 01:44 100 05/18/22 01:40 05/18/22 01:39 100 05/18/22 01:30 05/18/22 00:54 05/18/22 00:45 05/18/22 00:42 05/18/22 00:40 05/18/22 00:38 05/18/22 00:28 05/18/22 00:25 05/18/22 00:16 05/17/22 23:31 05/17/22 21:41 05/17/22 21:31 05/17/22 21:03 05/17/22 19:50 05/17/22 19:42 100 05/17/22 19:25 05/17/22 15:55 Intake and Output 05/17/22 05/18/22 05/18/22 22:59 06:59 14:59 Intake Total 2375.297 83.703 Output Total 875 2720 3205 Balance -875 -344.703 -3121.297 Intake: IV 2075 30 Sodium Chloride 0.9% 1, 75 30 000 ml @ 75 mls/hr IV . [id number] [facility] Rx#:[id number] Sodium Chloride 0.9% 2, 2000 000 ml @ 999 mls/hr IV . Q2H1M ONE Rx#:[id number] Intake, IV Titration 300.297 53.703 Amount Norepinephrine 4 mg In 249.788 4.212 Sodium Chloride 0.9% 250 ml @ 0.03 MCG/KG/MIN 12. 116 mls/hr IV .[id number] [facility] Rx#:[id number] propofoL 1,000 mg In 50.509 49.491 Empty Bag 1 bag @ 15 MCG/ KG/MIN 9.54 mls/hr IV . [id number] [facility] Rx#:[id number] Output: Drainage 2800 Right Chest 2800 Urine 875 2720 405 Other: Voiding Method Indwelling Catheter Indwelling Catheter # Voids 1 Weight 70.5 kg ABP, PAP, CO, CI - Last 8 Hours Arterial Blood Pressure 98/52 Arterial Blood Pressure 94/52 Arterial Blood Pressure 95/51 Arterial Blood Pressure 92/50 Arterial Blood Pressure 97/54 Arterial Blood Pressure 96/55 Arterial Blood Pressure 86/49 Arterial Blood Pressure 107/63 Physical Exam: Revealed a 71-year-old white male, looks frail cachectic, pale, intubated mechanically ventilated, not in distress. Head: Atraumatic, normocephalic. HEENT:[Neck is supple.] [No neck masses.] [No thyromegaly.] [No JVD.]dry mucous membranes noted. Chest: [symmetrical chest expansion diminished breath sounds at the bases bilaterally with dullness..] Cardiac Exam: [Normal S1 and S2, no S3 gallop, no murmur.] Abdomen: [Soft, nontender, no megaly, no rebound, no guarding, normal bowel sounds.] Extremities: [No clubbing, no edema, no cyanosis.significant muscle wasting is noted, patient again is frail and cachectic.] Neurological Exam: could not assess neurological status, patient is intubated and mechanically.Ventilated psychiatric: Could not assess. Results - Laboratory Findings CBC and BMP: 05/18/22 11:56 05/18/22 06:07 ABG ABG pH 7.51 (7.35-7.45) H 05/18/22 05:48 ABG pCO2 26 mmHg (35-45) L 05/18/22 05:48 ABG pO2 251 mmHg (83-108) H 05/18/22 05:48 ABG O2 Saturation 100.0 % (94-97) H 05/18/22 05:48 PT/INR, D-dimer PT 12.1 sec (9.0-12.0) H 05/16/22 21:02 INR 1.2 (<1.2) H 05/16/22 21:02 Abnormal lab findings: Abnormal Labs 05/16/22 05/16/22 05/16/22 21:02 21:02 21:02 WBC 3.3 L RBC 1.41 L Hgb 5.2 L* D Hct 16.3 L* MCV 115.0 H MCH 37.1 H RDW 18.4 H Plt Count Lymphocytes # 0.4 L Macrocytosis Marked A PT 12.1 H INR 1.2 H ABG pH ABG pCO2 ABG pO2 ABG O2 Saturation Chloride 110 H Carbon Dioxide 21 L BUN 64 H Glucose 105 H POC Glucose (mg/dL) Calcium Ammonia Total Protein 6.1 L Albumin Ur Leukocyte Esterase Urine WBC Urine WBC Clumps Hyaline Casts Urine Mucus Ur Random Sodium Ur Oxycodone Screen Crossmatch 05/16/22 05/16/22 05/17/22 21:02 21:14 03:47 WBC RBC Hgb Hct MCV MCH RDW Plt Count Lymphocytes # Macrocytosis PT INR ABG pH ABG pCO2 ABG pO2 ABG O2 Saturation Chloride Carbon Dioxide BUN Glucose POC Glucose (mg/dL) 124 H Calcium Ammonia 77 H Total Protein Albumin Ur Leukocyte Esterase Urine WBC Urine WBC Clumps Hyaline Casts Urine Mucus Ur Random Sodium Ur Oxycodone Screen Crossmatch See Detail 05/17/22 05/17/22 05/17/22 08:56 08:56 09:00 WBC RBC 2.43 L Hgb 8.3 L D Hct 25.5 L MCV 104.7 H D MCH RDW 21.9 H Plt Count 145 L Lymphocytes # 0.2 L Macrocytosis Marked A PT INR ABG pH ABG pCO2 ABG pO2 ABG O2 Saturation Chloride 111 H Carbon Dioxide 21 L BUN 64 H Glucose 100 H POC Glucose (mg/dL) Calcium Ammonia 51 H Total Protein 6.1 L Albumin 3.4 L Ur Leukocyte Esterase Urine WBC Urine WBC Clumps Hyaline Casts Urine Mucus Ur Random Sodium Ur Oxycodone Screen Crossmatch 05/17/22 05/17/22 05/17/22 10:00 10:44 18:33 WBC RBC 2.35 L Hgb 8.1 L Hct 24.3 L MCV 103.3 H MCH RDW 22.7 H Plt Count 143 L Lymphocytes # Macrocytosis Marked A PT INR ABG pH ABG pCO2 ABG pO2 ABG O2 Saturation Chloride Carbon Dioxide BUN Glucose POC Glucose (mg/dL) Calcium Ammonia Total Protein Albumin Ur Leukocyte Esterase Urine WBC Urine WBC Clumps Hyaline Casts Urine Mucus Ur Random Sodium <20 L Ur Oxycodone Screen Detected H Crossmatch 05/17/22 05/17/22 05/17/22 19:18 21:19 23:20 WBC RBC 2.48 L Hgb 8.4 L Hct 25.7 L MCV 103.5 H MCH RDW 22.8 H Plt Count 147 L Lymphocytes # Macrocytosis Marked A PT INR ABG pH ABG pCO2 34 L ABG pO2 64 L ABG O2 Saturation 92.2 L Chloride Carbon Dioxide BUN Glucose POC Glucose (mg/dL) 133 H Calcium Ammonia Total Protein Albumin Ur Leukocyte Esterase Urine WBC Urine WBC Clumps Hyaline Casts Urine Mucus Ur Random Sodium Ur Oxycodone Screen Crossmatch 05/18/22 05/18/22 05/18/22 01:16 05:48 06:07 WBC 3.7 L RBC 2.31 L Hgb 8.0 L Hct 23.4 L MCV 101.7 H MCH RDW 22.3 H Plt Count 133 L Lymphocytes # 0.2 L Macrocytosis PT INR ABG pH 7.51 H ABG pCO2 26 L ABG pO2 251 H ABG O2 Saturation 100.0 H Chloride Carbon Dioxide BUN Glucose POC Glucose (mg/dL) 137 H Calcium Ammonia Total Protein Albumin Ur Leukocyte Esterase Urine WBC Urine WBC Clumps Hyaline Casts Urine Mucus Ur Random Sodium Ur Oxycodone Screen Crossmatch 05/18/22 05/18/22 05/18/22 06:07 06:07 06:57 WBC RBC Hgb Hct MCV MCH RDW Plt Count Lymphocytes # Macrocytosis PT INR ABG pH ABG pCO2 ABG pO2 ABG O2 Saturation Chloride 112 H Carbon Dioxide 20 L BUN 69 H Glucose 121 H POC Glucose (mg/dL) 130 H Calcium 8.0 L Ammonia 158 H Total Protein Albumin Ur Leukocyte Esterase Urine WBC Urine WBC Clumps Hyaline Casts Urine Mucus Ur Random Sodium Ur Oxycodone Screen Crossmatch 05/18/22 05/18/22 05/18/22 09:11 11:56 12:08 WBC 1.4 L* RBC 2.02 L Hgb 7.1 L Hct 20.7 L MCV 102.2 H MCH 35.1 H RDW 22.8 H Plt Count 122 L Lymphocytes # Macrocytosis Marked A PT INR ABG pH ABG pCO2 ABG pO2 ABG O2 Saturation Chloride Carbon Dioxide BUN Glucose POC Glucose (mg/dL) 123 H Calcium Ammonia Total Protein Albumin Ur Leukocyte Esterase Large H Urine WBC 46 H Urine WBC Clumps Few H Hyaline Casts 51 H Urine Mucus Rare H Ur Random Sodium Ur Oxycodone Screen Crossmatch - Diagnostic Findings Chest x-ray: image reviewed (as noted in HPI.) Assessment and Plan Assessment: impression: Acute hypoxic respiratory failure secondary to massive bilateral pleural effusions, etiology is not clear, however malignant pleural effusion needs to be ruled out. Patient underwent diagnostic and therapeutic thoracentesis were and I was able to drain 2.9 L from the right pleural space, results on the fluid are pending. Severe hypotension, it is not clear whether this is hypovolemic in nature or could be related to sepsis and septic shock. Hence the patient will be given fluids, and he will be given antibiotics empirically. Cultures are pending, Pancytopenia, Possible sepsis and septic shock Acute on chronic anemia Bilateral pleural effusions History of portal vein thromboses patient is been maintained on eliquis. Elevated ammonia level, hepatic encephalopathy is strongly suspected. Esophageal cancer with liver metastasis. Protein calorie malnutrition, severe in nature. history of paroxysmal atrial fibrillation. Recommendation: Continue ventilatory support. Continue hemodynamic support, patient will receive fluids and will also receive pressors. Right-sided thoracentesis was done, the purpose is therapeutic and diagnostic. Empiric antibiotics for presumptive underlying sepsis or septic shock. Continue fluids and transfused with packed RBCs for low hemoglobin. Resume lactulose for his elevated ammonia level. May consider left sided thoracentesis in the next 24 hours. Nutritional support, consider enteral feeding. GI and DVT prophylaxis. Overall prognosis is extremely poor and guarded, If no improvement noted in the next 24-48 hours, I will strongly recommend hospice on this patient. Critical care time is over 55 minutes, not including the time spent on procedures. Time with Patient: Greater than 30
[2022-05-18 13:09] LABS: ABG HCO3 20 mmol/L (21-25); ABG PCO2 25 mmHg (35-45); ABG PH 7.51 (7.35-7.45); ABG PO2 207 mmHg (83-108); ABG TCO2 21 mmol/L (19-24); Allen Test Performed? Yes
[2022-05-18 13:27] VITALS: BMI 25.8
[2022-05-18 14:17] LABS: T4, Free (Free Thyroxine) 1.17 ng/dL (0.78-2.19)
[2022-05-18 14:22] LABS: Band Neutrophils % 2 %; Lymphocytes # (M) 0.25 k/uL (1.0-4.8); Monocytes # (M) 0.15 k/uL (0-1.0); Neutrophils % (M) 69 %; Nucleated Red Blood Cells 0 /100 WBC (0-0); Total Cells Counted 100
[2022-05-18 14:29] LABS: Appearance,Urine Clear (Clear); Bilirubin,Urine Negative (Negative); Blood,Urine Negative (Negative); Color,Urine Colorless; Glucose,Urine (UA) Negative (Negative); Hyaline Casts,Urine 13 /lpf (0-2); Ketones,Urine Negative (Negative); Leukocyte Esterase,Urine Moderate (Negative); Mucus,Urine Rare /hpf; Nitrite,Urine Negative (Negative); PH, Urine 5.5 (5.0-8.0); Protein,Urine Negative (Negative); RBC,Urine 2 /hpf (0-5); Specific Gravity,Urine 1.009 (1.001-1.035); Urobilinogen,Urine <2.0 mg/dL (<2.0); WBC,Urine 30 /hpf (0-5)
[2022-05-18] MEDS: LACTULOSE 20 GM/30 ML CUP PO SCH ×2 (16:15→21:06)
[2022-05-18] MEDS: PIPERACILLIN-TAZOBACTAM 3.375 GM in SODIUM CHLORIDE 0.9% 100 ML IVPB SCH ×2 (16:15→23:56)
[2022-05-18] MEDS: HEPARIN SODIUM,PORCINE/PF 5,000 UNIT/0.5 ML SYRINGE SQ SCH ×2 (16:18→23:57)
--- NOTE | 2022-05-18 17:47 | P.CONS ---
History of Present Illness - Reason for Consult Consult date: 05/18/22 esophageal cancer, severe anemia - History of Present Illness the patient is a 71-year-old white male, well known to our service. He is followed by in the office. The patient was diagnosed with a distal esophageal cancer in 12/22, and was treated with chemoradiation, followed by surgery. He then developed recurrence, and was on chemotherapy plus PD-1 immunotherapy combination till about 02/23. He was then on chemotherapy alone for a few more treatments. The exact details of his regimen were not available to me at the time of the consult. The patient has been having issues with mid abdominal and back pain. He has had multiple imaging studies in this regard including MRI, and PET scans. A PET scan on 04/06/22, showed some increase in uptake of soft tissue masses in the left upper quadrant, as well as in a known lesion in the right dome of the liver. The patient apparently had some worsening of symptoms subsequently leading to another CT scan in late 04/25, which now showed extensive portal vein thrombosis and increase in size of the right dome of the liver lesion. he was therefore initiated on eliquis The patient was to start a new regimen, and came to the hospital on 05/16/22 for port placement. His procedure had to be postponed, as his surgeon was called today for an emergency. However the patient came to the emergency room as he is feeling progressively weak, and cold. He was also at least mildly confused. He was found to have a hemoglobin in the low 5 range. Labs since about 12/24 had shown drop in hemoglobin into the 8 range. Most recent hemoglobin prior to that on 05/03/22 was also in the 8 range. No obvious bleeding had been noted The patient was resuscitated with IV fluids and received 2 units PRBC with adequate increase in hemoglobin. However he then developed progressive shortness of breath, with exam revealing bilateral rails. His imaging studies including CT scans in late 04/25, and chest x-ray this admission had revealed bilateral effusions. The patient received Lasix, but then became quite hypotensive. He was intubated and transferred to the ICU. Consult was placed for oncology evaluation and recommendations.Ammonia level was noted to be e levated during this admission, at 51 and then subsequently at 158. Liver enzymes were normal. The patient was intubated at the time of evaluation and therefore history, and ROS was obtained from his family, and nursing. The patient had been off his anticoagulation since 05/15/21. No obvious bleeding has been noted. the family stated that the patient had had an EGD within the last 2-3 months intermittently [facility]. This had not shown any recurrence at the primary site, or any ulcers. he has been having issues with significant lower extremity edema for at least a few months. He also developed significant hypothyroidism due to immunotherapy, and is on thyroid supplementation. Review of Systems Constitutional: Reports chronic pain, Reports fatigue, Reports poor appetite, Reports weight loss Eyes: denies blurred vision, denies pain Ears: deny: decreased hearing, ear discharge, earache, tinnitus Ears, nose, mouth and throat: Denies headache, Denies sore throat Cardiovascular: Reports edema (bilateral lower extremity, now ongoing for some months), Reports shortness of breath Respiratory: Reports dyspnea Gastrointestinal: Reports as per HPI, Reports abdominal pain, Reports loss of appetite Genitourinary: Reports as per HPI Musculoskeletal: Reports muscle weakness Integumentary: Denies pruritus, Denies rash Neurological: Reports confusion Psychiatric: Reports confusion Endocrine: Reports as per HPI, Reports fatigue, Reports weight change Hematologic/Lymphatic: Reports as per HPI Past Medical History Past Medical History: Cancer, Hypertension Additional Past Medical History / Comment(s): frequent bloating, difficulty swallowing, past hx of HTN, no current medications, esophageal cancer History of Any Multi-Drug Resistant Organisms: None Reported Additional Past Surgical History / Comment(s): JAW RECONSTRUCTION (OVER BITE), colonoscopy Past Anesthesia/Blood Transfusion Reactions: No Reported Reaction Smoking Status: Current some day smoker - Past Family History Mother Family Medical History: Cancer Additional Family Medical History / Comment(s): COLON CANCER Medications and Allergies Home Medications Medication Instructions Recorded Confirmed Type Cholecalciferol (Vitamin D3) 2,000 unit PO BID 06/19/17 05/17/22 History [Vitamin D3] Levothyroxine Sodium [Synthroid] 200 mcg PO DAILY 05/13/22 05/17/22 History Omeprazole 20 mg PO DAILY 05/13/22 05/17/22 History oxyCODONE-APAP 7.5-325MG [Percocet 1 tab PO Q6H PRN 05/13/22 05/17/22 History 7.5-325 mg] Apixaban [Eliquis Starter Pack See Taper PO DIRECTED 05/17/22 05/17/22 History (for VTE)] Allergies Allergy/AdvReac Type Severity Reaction Status Date / Time No Known Allergies Allergy Verified 05/17/22 09:17 Physical Exam Vitals: Vital Signs Temp Pulse Pulse Resp BP BP Pulse Ox 05/18/22 16:30 12 98/62 100 05/18/22 16:20 43 L 12 100 05/18/22 16:10 43 L 14 100 05/18/22 16:00 96.7 F L 40 L 14 100 05/18/22 15:50 43 L 11 L 100 05/18/22 15:46 05/18/22 15:40 42 L 19 100 05/18/22 15:30 97.3 F L 42 L 12 100 05/18/22 14:45 43 L 14 100 05/18/22 14:30 44 L 14 100 05/18/22 14:15 44 L 14 100 05/18/22 14:00 46 L 14 100 05/18/22 13:45 48 L 14 100 05/18/22 13:30 48 L 14 100 05/18/22 13:15 48 L 20 100 05/18/22 13:13 05/18/22 13:01 05/18/22 13:00 49 L 20 100 05/18/22 12:45 47 L 20 100 05/18/22 12:30 40 L 20 96 05/18/22 12:15 42 L 20 95 05/18/22 12:00 98.8 F 40 L 20 96 05/18/22 11:45 41 L 20 100 05/18/22 11:30 43 L 20 100 05/18/22 11:15 43 L 20 100 05/18/22 11:00 40 L 20 100 05/18/22 10:45 41 L 20 98/62 100 05/18/22 10:30 42 L 20 100 05/18/22 10:15 48 L 20 98 05/18/22 10:00 45 L 20 98 05/18/22 09:45 46 L 20 99 05/18/22 09:30 48 L 20 96 05/18/22 09:15 45 L 20 99 05/18/22 09:00 45 L 20 92/66 70 L 05/18/22 08:50 51 L 20 92/66 95 05/18/22 08:40 48 L 20 93/55 99 05/18/22 08:30 47 L 20 80/54 100 05/18/22 08:20 51 L 20 80/54 99 05/18/22 08:10 55 L 20 85/61 05/18/22 08:02 05/18/22 08:00 98.9 F 53 L 20 88/65 94 L 05/18/22 07:50 54 L 20 90/54 95 05/18/22 07:40 54 L 20 88/61 95 05/18/22 07:30 54 L 20 84/62 98 05/18/22 07:20 54 L 20 84/60 91 L 05/18/22 07:10 54 L 20 81/62 97 05/18/22 07:00 53 L 20 81/56 05/18/22 06:50 55 L 20 76/58 05/18/22 06:40 54 L 20 77/55 05/18/22 06:30 54 L 20 80/56 05/18/22 06:20 56 L 20 83/54 05/18/22 06:10 54 L 20 70/54 98 05/18/22 06:00 56 L 20 82/46 100 05/18/22 05:52 05/18/22 05:50 53 L 20 93 L 05/18/22 05:40 56 L 20 84/62 05/18/22 05:30 57 L 20 86/50 94 L 05/18/22 05:20 52 L 20 88/51 05/18/22 05:10 55 L 20 81/65 94 L 05/18/22 05:00 56 L 20 80/56 96 05/18/22 04:50 56 L 20 77/54 95 05/18/22 04:40 59 L 20 77/55 05/18/22 04:30 63 20 77/59 94 L 05/18/22 04:20 63 20 77/55 05/18/22 04:10 65 20 70/52 05/18/22 04:00 65 20 72/52 100 05/18/22 03:51 05/18/22 03:50 67 20 76/54 05/18/22 03:40 67 20 76/53 05/18/22 03:30 64 20 80/56 05/18/22 03:20 69 20 85/63 05/18/22 03:10 71 20 73/55 05/18/22 03:00 97.2 F L 68 20 70/53 05/18/22 02:50 68 20 05/18/22 02:40 71 20 81/63 05/18/22 02:30 75 20 80/61 05/18/22 02:20 87 20 54/41 05/18/22 02:10 89 20 68/54 05/18/22 02:00 97.3 F L 92 20 66/47 98 05/18/22 01:50 93 20 70/56 05/18/22 01:44 05/18/22 01:40 94 20 74/56 97 05/18/22 01:30 96 20 105/80 100 05/18/22 00:54 91/52 05/18/22 00:45 90/51 05/18/22 00:42 91/53 05/18/22 00:40 78/47 05/18/22 00:38 99 05/18/22 00:28 84 05/18/22 00:25 22 86/52 100 05/18/22 00:16 103 H 05/17/22 23:31 96.7 F L 95 24 130/87 96 05/17/22 21:41 98 05/17/22 21:31 84 05/17/22 21:03 78 24 138/83 96 05/17/22 19:50 96 F L 78 22 138/88 97 05/17/22 19:42 95 05/17/22 19:25 72 FiO2 05/18/22 16:30 05/18/22 16:20 05/18/22 16:10 05/18/22 16:00 40 05/18/22 15:50 05/18/22 15:46 40 05/18/22 15:40 05/18/22 15:30 05/18/22 14:45 05/18/22 14:30 05/18/22 14:15 05/18/22 14:00 05/18/22 13:45 05/18/22 13:30 40 05/18/22 13:15 05/18/22 13:13 40 05/18/22 13:01 50 05/18/22 13:00 05/18/22 12:45 05/18/22 12:30 05/18/22 12:15 05/18/22 12:00 50 05/18/22 11:45 05/18/22 11:30 05/18/22 11:15 05/18/22 11:00 05/18/22 10:45 05/18/22 10:30 05/18/22 10:15 05/18/22 10:00 05/18/22 09:45 05/18/22 09:30 05/18/22 09:15 05/18/22 09:00 05/18/22 08:50 05/18/22 08:40 05/18/22 08:30 05/18/22 08:20 05/18/22 08:10 05/18/22 08:02 50 05/18/22 08:00 50 05/18/22 07:50 05/18/22 07:40 05/18/22 07:30 05/18/22 07:20 05/18/22 07:10 05/18/22 07:00 05/18/22 06:50 05/18/22 06:40 05/18/22 06:30 05/18/22 06:20 05/18/22 06:10 05/18/22 06:00 05/18/22 05:52 50 05/18/22 05:50 05/18/22 05:40 05/18/22 05:30 05/18/22 05:20 05/18/22 05:10 05/18/22 05:00 05/18/22 04:50 80 05/18/22 04:40 05/18/22 04:30 05/18/22 04:20 05/18/22 04:10 05/18/22 04:00 80 05/18/22 03:51 80 05/18/22 03:50 05/18/22 03:40 05/18/22 03:30 05/18/22 03:20 05/18/22 03:10 05/18/22 03:00 05/18/22 02:50 05/18/22 02:40 05/18/22 02:30 05/18/22 02:20 05/18/22 02:10 05/18/22 02:00 100 05/18/22 01:50 05/18/22 01:44 100 05/18/22 01:40 05/18/22 01:30 05/18/22 00:54 05/18/22 00:45 05/18/22 00:42 05/18/22 00:40 05/18/22 00:38 05/18/22 00:28 05/18/22 00:25 05/18/22 00:16 05/17/22 23:31 05/17/22 21:41 05/17/22 21:31 05/17/22 21:03 05/17/22 19:50 05/17/22 19:42 100 05/17/22 19:25 Intake and Output 05/18/22 05/18/22 05/18/22 06:59 14:59 22:59 Intake Total 2375.297 712.778 228.795 Output Total 2720 4130 Balance -344.703 -3417.222 228.795 Intake: IV 2075 530 Lactated Ringers 1,000 ml 500 @ 125 mls/hr IV .Q8H ANAYA Rx#:[id number] Sodium Chloride 0.9% 1, 75 30 000 ml @ 75 mls/hr IV . [id number] ANAYA Rx#:[id number] Sodium Chloride 0.9% 2, 2000 000 ml @ 999 mls/hr IV . Q2H1M ONE Rx#:[id number] Intake, IV Titration 300.297 182.778 78.795 Amount Norepinephrine 4 mg In 249.788 4.212 Sodium Chloride 0.9% 250 ml @ 0.03 MCG/KG/MIN 12. 116 mls/hr IV .[id number] ANAYA Rx#:[id number] Norepinephrine 8 mg In 66.800 45.517 Sodium Chloride 0.9% 250 ml @ 0.25 MCG/KG/MIN 34. 104 mls/hr IV .Q7H34M ANAYA Rx#:[id number] Vasopressin 20 unit In 33.278 Sodium Chloride 0.9% 50 ml @ 0.03 UNITS/MIN 4.59 mls/hr IV .Q11H7M ANAYA Rx# :[id number] propofoL 1,000 mg In 50.509 111.766 Empty Bag 1 bag @ 15 MCG/ KG/MIN 9.54 mls/hr IV . [id number] ANAYA Rx#:[id number] Blood Product 0 Rc As-1 Unit 0 [id number] Other 150 Rc As-1 Unit 150 [id number] Output: Drainage 2800 Right Chest 2800 Urine 2720 1330 Other: Voiding Method Indwelling Catheter Weight 70.5 kg 70.5 kg ABP, PAP, CO, CI - Last 8 Hours Arterial Blood Pressure 99/55 Arterial Blood Pressure 102/56 Arterial Blood Pressure 102/56 Arterial Blood Pressure 98/54 Arterial Blood Pressure 93/51 Arterial Blood Pressure 92/50 Arterial Blood Pressure 89/48 Arterial Blood Pressure 90/51 Arterial Blood Pressure 90/51 Arterial Blood Pressure 91/51 Arterial Blood Pressure 93/53 Arterial Blood Pressure 93/54 Arterial Blood Pressure 97/57 Arterial Blood Pressure 102/60 Arterial Blood Pressure 103/59 Arterial Blood Pressure 104/58 Arterial Blood Pressure 99/53 Arterial Blood Pressure 102/56 Arterial Blood Pressure 101/54 Arterial Blood Pressure 100/54 Arterial Blood Pressure 102/55 Arterial Blood Pressure 98/52 Arterial Blood Pressure 94/52 Arterial Blood Pressure 95/51 Arterial Blood Pressure 92/50 Arterial Blood Pressure 97/54 Arterial Blood Pressure 96/55 Arterial Blood Pressure 86/49 Arterial Blood Pressure 107/63 patient sedated, on the vent - Constitutional General appearance: no acute distress - EENT Eyes: PERRLA - Neck Neck: no lymphadenopathy Thyroid: bilateral: normal size - Respiratory Respiratory: bilateral: diminished (bilateral bases) - Cardiovascular Rhythm: regular Heart sounds: normal: S1, S2 - Gastrointestinal General gastrointestinal: decreased bowel sounds, soft - Integumentary Integumentary: normal - Neurologic sedated, on the vent - Musculoskeletal Musculoskeletal: generalized weakness Results CBC & Chem 7: 05/18/22 11:56 05/18/22 06:07 Labs: Abnormal Lab Results - Last 24 Hours (Table) 05/16/22 05/17/22 05/17/22 Range/Units 21:14 10:00 18:33 WBC (3.8-10.6) k/uL RBC 2.35 L (4.30-5.90) m/uL Hgb 8.1 L (13.0-17.5) gm/dL Hct 24.3 L (39.0-53.0) % MCV 103.3 H (80.0-100.0) fL MCH (25.0-35.0) pg RDW 22.7 H (11.5-15.5) % Plt Count 143 L (150-450) k/uL Neutrophils # (Manual) (1.3-7.7) k/uL Lymphocytes # (1.0-4.8) k/uL Lymphocytes # (Manual) (1.0-4.8) k/uL Macrocytosis Marked A ABG pH (7.35-7.45) ABG pCO2 (35-45) mmHg ABG pO2 (83-108) mmHg ABG HCO3 (21-25) mmol/L ABG O2 Saturation (94-97) % Chloride (98-107) mmol/L Carbon Dioxide (22-30) mmol/L BUN (9-20) mg/dL Glucose (74-99) mg/dL POC Glucose (mg/dL) (70-110) mg/dL Calcium (8.4-10.2) mg/dL Ammonia (<30) umol/L TSH (0.465-4.680) mIU/L Free T3 pg/mL (2.8-5.3) pg/ml Ur Leukocyte Esterase (Negative) Urine WBC (0-5) /hpf Urine WBC Clumps (None) /hpf Hyaline Casts (0-2) /lpf Urine Mucus (None) /hpf Ur Random Sodium <20 L (40-220) mmol/L Crossmatch See Detail 05/17/22 05/17/22 05/17/22 Range/Units 19:18 21:19 23:20 WBC (3.8-10.6) k/uL RBC 2.48 L (4.30-5.90) m/uL Hgb 8.4 L (13.0-17.5) gm/dL Hct 25.7 L (39.0-53.0) % MCV 103.5 H (80.0-100.0) fL MCH (25.0-35.0) pg RDW 22.8 H (11.5-15.5) % Plt Count 147 L (150-450) k/uL Neutrophils # (Manual) (1.3-7.7) k/uL Lymphocytes # (1.0-4.8) k/uL Lymphocytes # (Manual) (1.0-4.8) k/uL Macrocytosis Marked A ABG pH (7.35-7.45) ABG pCO2 34 L (35-45) mmHg ABG pO2 64 L (83-108) mmHg ABG HCO3 (21-25) mmol/L ABG O2 Saturation 92.2 L (94-97) % Chloride (98-107) mmol/L Carbon Dioxide (22-30) mmol/L BUN (9-20) mg/dL Glucose (74-99) mg/dL POC Glucose (mg/dL) 133 H (70-110) mg/dL Calcium (8.4-10.2) mg/dL Ammonia (<30) umol/L TSH (0.465-4.680) mIU/L Free T3 pg/mL (2.8-5.3) pg/ml Ur Leukocyte Esterase (Negative) Urine WBC (0-5) /hpf Urine WBC Clumps (None) /hpf Hyaline Casts (0-2) /lpf Urine Mucus (None) /hpf Ur Random Sodium (40-220) mmol/L Crossmatch 05/18/22 05/18/22 05/18/22 Range/Units 01:16 05:48 06:07 WBC 3.7 L (3.8-10.6) k/uL RBC 2.31 L (4.30-5.90) m/uL Hgb 8.0 L (13.0-17.5) gm/dL Hct 23.4 L (39.0-53.0) % MCV 101.7 H (80.0-100.0) fL MCH (25.0-35.0) pg RDW 22.3 H (11.5-15.5) % Plt Count 133 L (150-450) k/uL Neutrophils # (Manual) (1.3-7.7) k/uL Lymphocytes # 0.2 L (1.0-4.8) k/uL Lymphocytes # (Manual) (1.0-4.8) k/uL Macrocytosis ABG pH 7.51 H (7.35-7.45) ABG pCO2 26 L (35-45) mmHg ABG pO2 251 H (83-108) mmHg ABG HCO3 (21-25) mmol/L ABG O2 Saturation 100.0 H (94-97) % Chloride (98-107) mmol/L Carbon Dioxide (22-30) mmol/L BUN (9-20) mg/dL Glucose (74-99) mg/dL POC Glucose (mg/dL) 137 H (70-110) mg/dL Calcium (8.4-10.2) mg/dL Ammonia (<30) umol/L TSH (0.465-4.680) mIU/L Free T3 pg/mL (2.8-5.3) pg/ml Ur Leukocyte Esterase (Negative) Urine WBC (0-5) /hpf Urine WBC Clumps (None) /hpf Hyaline Casts (0-2) /lpf Urine Mucus (None) /hpf Ur Random Sodium (40-220) mmol/L Crossmatch 05/18/22 05/18/22 05/18/22 Range/Units 06:07 06:07 06:57 WBC (3.8-10.6) k/uL RBC (4.30-5.90) m/uL Hgb (13.0-17.5) gm/dL Hct (39.0-53.0) % MCV (80.0-100.0) fL MCH (25.0-35.0) pg RDW (11.5-15.5) % Plt Count (150-450) k/uL Neutrophils # (Manual) (1.3-7.7) k/uL Lymphocytes # (1.0-4.8) k/uL Lymphocytes # (Manual) (1.0-4.8) k/uL Macrocytosis ABG pH (7.35-7.45) ABG pCO2 (35-45) mmHg ABG pO2 (83-108) mmHg ABG HCO3 (21-25) mmol/L ABG O2 Saturation (94-97) % Chloride 112 H (98-107) mmol/L Carbon Dioxide 20 L (22-30) mmol/L BUN 69 H (9-20) mg/dL Glucose 121 H (74-99) mg/dL POC Glucose (mg/dL) 130 H (70-110) mg/dL Calcium 8.0 L (8.4-10.2) mg/dL Ammonia 158 H (<30) umol/L TSH (0.465-4.680) mIU/L Free T3 pg/mL (2.8-5.3) pg/ml Ur Leukocyte Esterase (Negative) Urine WBC (0-5) /hpf Urine WBC Clumps (None) /hpf Hyaline Casts (0-2) /lpf Urine Mucus (None) /hpf Ur Random Sodium (40-220) mmol/L Crossmatch 05/18/22 05/18/22 05/18/22 Range/Units 09:11 11:56 12:08 WBC 1.4 L* (3.8-10.6) k/uL RBC 2.02 L (4.30-5.90) m/uL Hgb 7.1 L (13.0-17.5) gm/dL Hct 20.7 L (39.0-53.0) % MCV 102.2 H (80.0-100.0) fL MCH 35.1 H (25.0-35.0) pg RDW 22.8 H (11.5-15.5) % Plt Count 122 L (150-450) k/uL Neutrophils # (Manual) 0.90 L (1.3-7.7) k/uL Lymphocytes # (1.0-4.8) k/uL Lymphocytes # (Manual) 0.25 L (1.0-4.8) k/uL Macrocytosis Marked A ABG pH (7.35-7.45) ABG pCO2 (35-45) mmHg ABG pO2 (83-108) mmHg ABG HCO3 (21-25) mmol/L ABG O2 Saturation (94-97) % Chloride (98-107) mmol/L Carbon Dioxide (22-30) mmol/L BUN (9-20) mg/dL Glucose (74-99) mg/dL POC Glucose (mg/dL) 123 H (70-110) mg/dL Calcium (8.4-10.2) mg/dL Ammonia (<30) umol/L TSH (0.465-4.680) mIU/L Free T3 pg/mL (2.8-5.3) pg/ml Ur Leukocyte Esterase Large H (Negative) Urine WBC 46 H (0-5) /hpf Urine WBC Clumps Few H (None) /hpf Hyaline Casts 51 H (0-2) /lpf Urine Mucus Rare H (None) /hpf Ur Random Sodium (40-220) mmol/L Crossmatch 05/18/22 05/18/22 05/18/22 Range/Units 13:07 13:10 13:23 WBC (3.8-10.6) k/uL RBC (4.30-5.90) m/uL Hgb (13.0-17.5) gm/dL Hct (39.0-53.0) % MCV (80.0-100.0) fL MCH (25.0-35.0) pg RDW (11.5-15.5) % Plt Count (150-450) k/uL Neutrophils # (Manual) (1.3-7.7) k/uL Lymphocytes # (1.0-4.8) k/uL Lymphocytes # (Manual) (1.0-4.8) k/uL Macrocytosis ABG pH 7.51 H (7.35-7.45) ABG pCO2 25 L (35-45) mmHg ABG pO2 207 H (83-108) mmHg ABG HCO3 20 L (21-25) mmol/L ABG O2 Saturation 100.0 H (94-97) % Chloride (98-107) mmol/L Carbon Dioxide (22-30) mmol/L BUN (9-20) mg/dL Glucose (74-99) mg/dL POC Glucose (mg/dL) (70-110) mg/dL Calcium (8.4-10.2) mg/dL Ammonia (<30) umol/L TSH 28.300 H (0.465-4.680) mIU/L Free T3 pg/mL 1.6 L (2.8-5.3) pg/ml Ur Leukocyte Esterase Moderate H (Negative) Urine WBC 30 H (0-5) /hpf Urine WBC Clumps (None) /hpf Hyaline Casts 13 H (0-2) /lpf Urine Mucus Rare H (None) /hpf Ur Random Sodium (40-220) mmol/L Crossmatch Microbiology - Last 24 Hours (Table) 05/16/22 21:02 Blood Culture - Preliminary Blood No Growth after 24 hours Comments: recent PET scan and MRI report reviewed Chest x-ray: report reviewed CT scan - abdomen: report reviewed CT scan - chest: report reviewed CT scan - pelvis: report reviewed Assessment and Plan (1) Anemia Narrative/Plan: the patient had developed anemia in the latter part of last year, likely due to treatment effect. However hemoglobin had been in the 8-9 range. He has actually been off chemotherapy since about 02/23. The current drop in hemoglobin is a significant change from his baseline. - The main differential diagnosis in this situation it is bleeding likely occult blood loss from the GI, as the patient has recently been initiated on anticoagulation. - Continue to hold anticoagulation - Transfuse to keep hemoglobin at least greater than 7 - I would definitely recommend repeat EGD once patient is more stable to look for any reversible source of bleeding. If one is found and treated adequately, the patient can be placed back on anticoagulation subsequently. Current Visit: Yes Status: Acute Code(s): D64.9 - ANEMIA, UNSPECIFIED SNOMED Code(s): 071161217 (2) Acute respiratory failure Narrative/Plan: the patient did receive IV fluids and 2 units of blood. Physical exam from the admitting service subsequently noted bilateral rales. Therefore fluid overload is a major differential. In addition the patient has been noted to have bilateral pleural effusions even prior to this admission and had thoracentesis on the right side of 2.9 L. With malignant pleural effusion, as well as congestive heart failure are therefore in the differential. - The patient is currently on vent support, and has received diuresis, though management in that regard was limited due to development of hypotension. - Defer to 6 cm, and the admitting service for ongoing management Current Visit: Yes Status: Acute Code(s): J96.00 - ACUTE RESPIRATORY FAILURE, UNSP W HYPOXIA OR HYPERCAPNIA SNOMED Code(s): 87835951 (3) Pleural effusion Narrative/Plan: the patient's CT angiogram on 05/03/22 had shown bilateral pleural effusions. Patient had been having some shortness of breath at that time but not to be current extent. During this admission he was noted to have bilateral rales and elevated BNP. However echocardiogram showed normal ejection fraction and did not mention any evidence of metastatic dysfunction. - It was discussed with the family that at this time benign etiology of the effusions (fluid overload versus thyroid insufficiency versus autoimmune pleural inflammation) as well as malignancy are in the differential. Await cytology on the pleural fluid. Additional thoracentesis as needed, at the discretion of CCM - Check thyroid levels. The patient is on Synthroid. Current Visit: No Status: Acute Code(s): J90 - PLEURAL EFFUSION, NOT ELSEWHERE CLASSIFIED SNOMED Code(s): 57133996 Plan: prognosis is quite guarded. Family reiterated at this time that they do want aggressive medical management as well as full code.
[2022-05-18] MEDS ORDERED: FILGRASTIM-SNDZ 480 MCG/0.8 ML SYRINGE SQ SCH (18:00)
[2022-05-18 18:10] LABS: Glucose,Whole Blood 141 mg/dL (70-110)
[2022-05-18 18:18] LABS: Cholesterol,BF Source Pleural Fluid; Cholesterol,Body Fluid 26 mg/dL; Glucose, BF Source Pleural Fluid; Glucose, Body Fluid 123 mg/dL; LDH, Body Fluid Source Pleural Fluid; T. Protein, Body Fluid Source Pleural Fluid; Total Protein, Body Fluid 1210 mg/dL
[2022-05-18 18:27] LABS: Appearance,BF Hazy
[2022-05-18 18:40] LABS: Anisocytosis Moderate; HCT 25.4 % (39.0-53.0); HGB 8.3 gm/dL (13.0-17.5); MCH 32.8 pg (25.0-35.0); MCHC 32.8 g/dL (31.0-37.0); MCV 99.8 fL (80.0-100.0); Macrocytosis Moderate; Mean Platelet Volume 10.4; Platelet Count 102 k/uL (150-450); Poikilocytosis Slight; RBC 2.54 m/uL (4.30-5.90); RDW 23.7 % (11.5-15.5)
[2022-05-18 20:49] VITALS: TEMP 97.2
[2022-05-18 22:52] LABS: % Iron Saturation 16.77 (15.00-50.00); Iron 31 ug/dL (65-175); Total Iron Binding Capacity 185 ug/dL (228-460)
[2022-05-18 23:20] LABS: Anisocytosis Moderate; HCT 25.7 % (39.0-53.0); HGB 8.7 gm/dL (13.0-17.5); MCH 33.1 pg (25.0-35.0); MCHC 33.8 g/dL (31.0-37.0); MCV 97.9 fL (80.0-100.0); Macrocytosis Moderate; Mean Platelet Volume 10.7; Platelet Count 107 k/uL (150-450); Poikilocytosis Slight; RBC 2.63 m/uL (4.30-5.90); RDW 23.3 % (11.5-15.5); WBC 2.6 k/uL (3.8-10.6)
[2022-05-19 01:09] LABS: Glucose,Whole Blood 173 mg/dL (70-110)
[2022-05-19] MEDS: NOREPINEPHRINE 8 MG in SODIUM CHLORIDE 0.9% 250 ML IV SCH (01:57)
[2022-05-19] MEDS: VASOPRESSIN 20 UNIT in SODIUM CHLORIDE 0.9% 50 ML IV SCH (03:49)
[2022-05-19] MEDS ORDERED: ATROPINE OPHTH SOLN 1% 5ML BTL SUBLINGUAL PRN (04:11)
[2022-05-19] MEDS ORDERED: MORPHINE SULFATE 2 MG/ML SYRINGE IV PRN (04:11)
[2022-05-19] MEDS ORDERED: SCOPOLAMINE 1 MG/72 HR PATCH TRANSDERM SCH (04:15)
[2022-05-19] MEDS: MORPHINE SULFATE (100 MG/2 ML) 100 MG in SODIUM CHLORIDE 0.9% 100 ML IV SCH ×4 (04:35→19:09)
[2022-05-19] MEDS: LACTATED RINGERS 1,000 ML IV SCH (05:16)
[2022-05-19] MEDS ORDERED: INSULIN ASPART (NovoLOG) 100 UNIT/ML VIAL SQ SCH ×2 (06:00→07:30)
--- NOTE | 2022-05-19 11:15 | P.PN ---
Subjective Progress Note Date: 05/19/22 Pt had rapidly worsening repsiratory and HD status overnight. Requiring max pressors. Family notified and changed patient's goals to comfort. Pt seen at bedside with family, appears comfortable on morphine. Agonal breathing noted. General: agonal breathing, appears comfortable, pale HEENT: normocephalic, atraumatic, no tracheal deviation Respiratory: symmetric chest rise, no cyanosis, CVS: perfusing all extremities, no distal gangrene, + pitting edema GI: soft, ND : no SPT, no CVAT, montelongo is present Assessment/plan: Acute on chronic anemia rule out GI bleeding leukopenia Anasarca Pleural Effusions, bilateral Anuria Acute hypoxemic respiratory failure Bilateral Pleural effusions portal vein thrombosis , recent diagnosis 10 days ago hold eliquis , until GI bleeding ruled out await general surgery input regarding resuming blood thinners hyperammonemia esophageal cancer with mets to liver Paroysmal afib Plan: comfort measures initiated morphine gtt scopolamine patch atropine drops SL Objective - Vital Signs Vital signs: Vital Signs Temp 97.2 F L 05/18/22 23:15 Pulse 71 05/19/22 08:37 Resp 9 L 05/19/22 08:37 BP 54/25 05/19/22 08:37 Pulse Ox 89 L 05/19/22 08:37 FiO2 40 05/19/22 03:51 Intake & Output 05/18/22 05/19/22 05/19/22 18:59 06:59 18:59 Intake Total 9358.576 3409.134 76.5 Output Total 4500 440 Balance -2830.702 1555.134 76.5 Weight 70.5 kg Intake: IV 1060 1315 0.9 @ KVO 30 90 Lactated Ringers 1,000 ml 1000 1125 @ 125 mls/hr IV .Q8H ANAYA Rx#:[id number] Piperacillin-Tazobactam 3 100 .375 gm In Sodium Chloride 0.9% 100 ml @ 25 mls/hr IVPB Q8HR ANAYA Rx# :[id number] Sodium Chloride 0.9% 1, 30 000 ml @ 75 mls/hr IV . [id number] ANAYA Rx#:[id number] Intake, IV Titration 299.298 400.134 76.5 Amount Morphine Sulfate (100 mg/ 14.314 76.5 2 ml) 100 mg In Sodium Chloride 0.9% 100 ml @ 1 MG/HR 1.02 mls/hr IV . Q24H ANAYA Rx#:[id number] Norepinephrine 4 mg In 4.212 Sodium Chloride 0.9% 250 ml @ 0.03 MCG/KG/MIN 12. 116 mls/hr IV .[id number] ANAYA Rx#:[id number] Norepinephrine 8 mg In 112.317 234.820 Sodium Chloride 0.9% 250 ml @ 0.25 MCG/KG/MIN 34. 104 mls/hr IV .Q7H34M ANAYA Rx#:[id number] Vasopressin 20 unit In 33.278 51 Sodium Chloride 0.9% 50 ml @ 0.03 UNITS/MIN 4.59 mls/hr IV .Q11H7M ANAYA Rx# :[id number] propofoL 1,000 mg In 149.491 100.000 Empty Bag 1 bag @ 15 MCG/ KG/MIN 9.54 mls/hr IV . [id number] ANAYA Rx#:[id number] Tube Feeding 70 160 Blood Product 0 Rc As-1 Unit 0 [id number] Other 240 120 Rc As-1 Unit 150 [id number] Output: Drainage 2800 Right Chest 2800 Urine 1700 440 Other: Voiding Method Indwelling Catheter Indwelling Catheter # Bowel Movements 1 ABP, PAP, CO, CI - Last Documented Arterial Blood Pressure 86/45 - Labs CBC & Chem 7: 05/18/22 23:14 05/18/22 06:07 Labs: Abnormal Lab Results - Last 24 Hours (Table) 05/16/22 05/18/22 05/18/22 Range/Units 21:14 11:56 12:08 WBC 1.4 L* (3.8-10.6) k/uL RBC 2.02 L (4.30-5.90) m/uL Hgb 7.1 L (13.0-17.5) gm/dL Hct 20.7 L (39.0-53.0) % MCV 102.2 H (80.0-100.0) fL MCH 35.1 H (25.0-35.0) pg RDW 22.8 H (11.5-15.5) % Plt Count 122 L (150-450) k/uL Neutrophils # (Manual) 0.90 L (1.3-7.7) k/uL Lymphocytes # (Manual) 0.25 L (1.0-4.8) k/uL Macrocytosis Marked A ABG pH (7.35-7.45) ABG pCO2 (35-45) mmHg ABG pO2 (83-108) mmHg ABG HCO3 (21-25) mmol/L ABG O2 Saturation (94-97) % POC Glucose (mg/dL) 123 H (70-110) mg/dL Iron (65-175) ug/dL TIBC (228-460) ug/dL Transferrin (204.0-354.0) mg/dL Ferritin (22.0-322.0) ng/mL TSH (0.465-4.680) mIU/L Free T3 pg/mL (2.8-5.3) pg/ml Ur Leukocyte Esterase (Negative) Urine WBC (0-5) /hpf Hyaline Casts (0-2) /lpf Urine Mucus (None) /hpf Crossmatch See Detail 05/18/22 05/18/22 05/18/22 Range/Units 13:07 13:10 13:23 WBC (3.8-10.6) k/uL RBC (4.30-5.90) m/uL Hgb (13.0-17.5) gm/dL Hct (39.0-53.0) % MCV (80.0-100.0) fL MCH (25.0-35.0) pg RDW (11.5-15.5) % Plt Count (150-450) k/uL Neutrophils # (Manual) (1.3-7.7) k/uL Lymphocytes # (Manual) (1.0-4.8) k/uL Macrocytosis ABG pH 7.51 H (7.35-7.45) ABG pCO2 25 L (35-45) mmHg ABG pO2 207 H (83-108) mmHg ABG HCO3 20 L (21-25) mmol/L ABG O2 Saturation 100.0 H (94-97) % POC Glucose (mg/dL) (70-110) mg/dL Iron 31 L (65-175) ug/dL TIBC 185 L (228-460) ug/dL Transferrin 132.0 L (204.0-354.0) mg/dL Ferritin 4496.0 H (22.0-322.0) ng/mL TSH 28.300 H (0.465-4.680) mIU/L Free T3 pg/mL 1.6 L (2.8-5.3) pg/ml Ur Leukocyte Esterase Moderate H (Negative) Urine WBC 30 H (0-5) /hpf Hyaline Casts 13 H (0-2) /lpf Urine Mucus Rare H (None) /hpf Crossmatch 05/18/22 05/18/22 05/18/22 Range/Units 17:45 18:09 23:14 WBC 2.0 L 2.6 L (3.8-10.6) k/uL RBC 2.54 L 2.63 L (4.30-5.90) m/uL Hgb 8.3 L 8.7 L (13.0-17.5) gm/dL Hct 25.4 L 25.7 L (39.0-53.0) % MCV (80.0-100.0) fL MCH (25.0-35.0) pg RDW 23.7 H 23.3 H (11.5-15.5) % Plt Count 102 L 107 L (150-450) k/uL Neutrophils # (Manual) (1.3-7.7) k/uL Lymphocytes # (Manual) (1.0-4.8) k/uL Macrocytosis ABG pH (7.35-7.45) ABG pCO2 (35-45) mmHg ABG pO2 (83-108) mmHg ABG HCO3 (21-25) mmol/L ABG O2 Saturation (94-97) % POC Glucose (mg/dL) 141 H (70-110) mg/dL Iron (65-175) ug/dL TIBC (228-460) ug/dL Transferrin (204.0-354.0) mg/dL Ferritin (22.0-322.0) ng/mL TSH (0.465-4.680) mIU/L Free T3 pg/mL (2.8-5.3) pg/ml Ur Leukocyte Esterase (Negative) Urine WBC (0-5) /hpf Hyaline Casts (0-2) /lpf Urine Mucus (None) /hpf Crossmatch 05/19/22 Range/Units 01:07 WBC (3.8-10.6) k/uL RBC (4.30-5.90) m/uL Hgb (13.0-17.5) gm/dL Hct (39.0-53.0) % MCV (80.0-100.0) fL MCH (25.0-35.0) pg RDW (11.5-15.5) % Plt Count (150-450) k/uL Neutrophils # (Manual) (1.3-7.7) k/uL Lymphocytes # (Manual) (1.0-4.8) k/uL Macrocytosis ABG pH (7.35-7.45) ABG pCO2 (35-45) mmHg ABG pO2 (83-108) mmHg ABG HCO3 (21-25) mmol/L ABG O2 Saturation (94-97) % POC Glucose (mg/dL) 173 H (70-110) mg/dL Iron (65-175) ug/dL TIBC (228-460) ug/dL Transferrin (204.0-354.0) mg/dL Ferritin (22.0-322.0) ng/mL TSH (0.465-4.680) mIU/L Free T3 pg/mL (2.8-5.3) pg/ml Ur Leukocyte Esterase (Negative) Urine WBC (0-5) /hpf Hyaline Casts (0-2) /lpf Urine Mucus (None) /hpf Crossmatch Microbiology - Last 24 Hours (Table) 05/18/22 09:00 Gram Stain - Preliminary Pleural Fluid Body Fluid Culture - Preliminary 05/16/22 21:02 Blood Culture - Preliminary Blood No Growth after 48 hours 05/18/22 13:23 Urine Culture - Preliminary Urine,Voided 05/17/22 16:33 Blood Culture - Preliminary Blood No Growth after 24 hours 05/18/22 09:00 Acid Fast Bacilli Culture - Preliminary Pleural Fluid 05/18/22 09:00 Fungal Culture - Preliminary Pleural Fluid
--- NOTE | 2022-05-19 11:15 | P.PN ---
Progress Note - Text Progress Note Date: 05/19/22 Patient been stable. He is scheduled for Port-A-Cath placement with Dr. Mitchell tomorrow.
[2022-05-20] MEDS: MORPHINE SULFATE (100 MG/2 ML) 100 MG in SODIUM CHLORIDE 0.9% 100 ML IV SCH ×2 (00:59→06:55)
[2022-05-20 01:56] VITALS: BP 46/25; PULSE 87; RESP 5
--- NOTE | 2022-05-20 14:00 | P.DS ---
Providers Date of admission: 05/16/22 22:59 Expected date of discharge: 05/20/22 Attending physician: Anum Calvin MD Consults: 05/16/22 23:00 Consult Physician Routine Consulting Provider: Jalen Loco Consult Reason/Comments: Port placement patient/ GI bleed Do you want consulting provider notified?: Yes 05/17/22 17:45 Consult Physician Routine Consulting Provider: Georges Cross Consult Reason/Comments: esophageal cancer Do you want consulting provider notified?: Yes Primary care physician: Proctor Hospital Course: Acute on chronic anemia rule out GI bleeding leukopenia Anasarca Pleural Effusions, bilateral Anuria Acute hypoxemic respiratory failure Bilateral Pleural effusions portal vein thrombosis , recent diagnosis 10 days ago hold eliquis , until GI bleeding ruled out await general surgery input regarding resuming blood thinners hyperammonemia esophageal cancer with mets to liver Paroysmal afib 71 year old male diagnosed and had surgery for esophageal cancer of the lower third after long history of GERD back in 03/2020 who was recently found to have progression of the disease , presented with confusion, fatigue and dyspnea. In the ED, he was found to be very pale and weak. blood work revealed acute on chronic anemia of 5.5, elevated ammonia and occult blood positive. I discussed the case with ED attending, and accepted the admission for blood transfusion , and supportive care, with general surgery to follow up on port insertion. Unfortunately, patient respiratory and hemodynamic status rapidly worsened and he was transitioned to the i[facility]. CXR demonstrated findings of volume overload, however, due to pressor requirement, diuresis was challenging. He did undergo thoracentesis which showed yellow/kwasi clear fluid, ctyology pending. Patient's pressor requirement ocntinued to increase and patient's family ultimately transitioned patient to comfort care. Patient peacefully this morning. Plan - Discharge Summary New Discharge Prescriptions: No Action Cholecalciferol (Vitamin D3) [Vitamin D3] 2,000 unit PO BID oxyCODONE-APAP 7.5-325MG [Percocet 7.5-325 mg] 1 tab PO Q6H PRN PRN Reason: Pain Omeprazole 20 mg PO DAILY Levothyroxine Sodium [Synthroid] 200 mcg PO DAILY Apixaban [Eliquis Starter Pack (for VTE)] See Taper PO DIRECTED Discharge Medication List Cholecalciferol (Vitamin D3) [Vitamin D3] 2,000 unit PO BID 06/19/17 [History] Levothyroxine Sodium [Synthroid] 200 mcg PO DAILY 05/13/22 [History] Omeprazole 20 mg PO DAILY 05/13/22 [History] oxyCODONE-APAP 7.5-325MG [Percocet 7.5-325 mg] 1 tab PO Q6H PRN 05/13/22 [History] Apixaban [Eliquis Starter Pack (for VTE)] See Taper PO DIRECTED 05/17/22 [H istory] Follow up Appointment(s)/Referral(s): Juan M Mayberry MD [Primary Care Provider] - 1-2 days Discharge Disposition: - Preliminary Cause of Preliminary Cause of : Metastatic Esophageal Cancer
== END 2022-05-20 10:50 | disposition expired | DRG 811 ==
LOC: EC 20:12 → 3SCARD 22:59 → 2SICU 05-18 01:11
PROVIDERS: ADMIT Internal Medicine; ATTEND Internal Medicine
PROC: 30233N1 Transfusion of Nonautologous Red Blood Cells into Peripheral Vein, Percutaneous Approach (ICD-10-PCS; 2022-05-16)
PROC: 3E033XZ Introduction of Vasopressor into Peripheral Vein, Percutaneous Approach (ICD-10-PCS; principal; 2022-05-18)
PROC: 0BH17EZ Insertion of Endotracheal Airway into Trachea, Via Natural or Artificial Opening (ICD-10-PCS; 2022-05-18)
PROC: 5A1945Z Respiratory Ventilation, 24-96 Consecutive Hours (ICD-10-PCS; 2022-05-18)
PROC: 0W993ZX Drainage of Right Pleural Cavity, Percutaneous Approach, Diagnostic (ICD-10-PCS; 2022-05-18)
PROC: 03HY32Z Insertion of Monitoring Device into Upper Artery, Percutaneous Approach (ICD-10-PCS; 2022-05-18)
PROC: 4A133B1 Monitoring of Arterial Pressure, Peripheral, Percutaneous Approach (ICD-10-PCS; 2022-05-18)
PROC: 4A133J1 Monitoring of Arterial Pulse, Peripheral, Percutaneous Approach (ICD-10-PCS; 2022-05-18)
PROC: 02HV33Z Insertion of Infusion Device into Superior Vena Cava, Percutaneous Approach (ICD-10-PCS; 2022-05-18)
DX: D62 Acute posthemorrhagic anemia (principal); E43 Unspecified severe protein-calorie malnutrition; I81 Portal vein thrombosis; J96.01 Acute respiratory failure with hypoxia; C78.7 Secondary malignant neoplasm of liver and intrahepatic bile duct; J90 Pleural effusion, not elsewhere classified; E72.20 Disorder of urea cycle metabolism, unspecified; D61.818 Other pancytopenia; Z51.5 Encounter for palliative care; Z66 Do not resuscitate; R19.5 Other fecal abnormalities; I48.0 Paroxysmal atrial fibrillation; K76.82 Hepatic encephalopathy; Z20.822 Contact with and (suspected) exposure to COVID-19; F17.200 Nicotine dependence, unspecified, uncomplicated; I10 Essential (primary) hypertension; E87.70 Fluid overload, unspecified; Z79.01 Long term (current) use of anticoagulants; Z79.890 Hormone replacement therapy; Z85.01 Personal history of malignant neoplasm of esophagus; Z80.0 Family history of malignant neoplasm of digestive organs
CPT/HCPCS: 36415; 36600; 70450; 71045; 71046; 76604; 76770; 80048; 80053; 80306; 80320; 81001; 81003; 82140; 82272; 82465; 82570; 82610; 82728; 82805; 82945; 83540; 83550; 83615; 83735; 83880; 84156; 84157; 84300; 84439; 84443; 84481; 84484; 85025; 85027; 85610; 85730; 86850; 86900; 86901; 86920; 87040; 87070; 87086; 87102; 87116; 87205; 87206; 87636; 88108; 88305; 88341; 88342; 89050; 93005; 93306; 94002; 94003; 94640; 94760; 96374; 99291

== ENCOUNTER → 2022-05-16 | Day surgery (SDC) | payer MEDICARE, BC ==
[~2022-05-16] MED LIST changes: +ACETAMINOPHEN TAB 500 MG TAB PO PRN; +DEXAMETHASONE SOD PHOSPHATE 4 MG/ML 1 ML VIAL IV ONE; +HEPARIN SODIUM,PORCINE/PF 5,000 UNIT/0.5 ML SYRINGE SQ PRN; +HYDROmorphone 0.5 MG/0.5 ML SYRINGE IVP PRN; +ONDANSETRON 4 MG/2 ML VIAL IVP ONE; +Pre Op ABX Message 1 EACH MISC MISCELLANE ONE
== END ==
LOC: OR 12:42
PROVIDERS: ATTEND Surgery
DX: Z53.9 Procedure and treatment not carried out, unspecified reason (principal)